=== PATIENT | male | born 1940 | race Caucasian/White ===

== ENCOUNTER 2016-04-16 11:44 | Inpatient (IN) ==
--- NOTE | 2016-04-16 14:50 | Diag Imaging Result Document ---
PROCEDURE NAME: HEAD W/O CONTRAST - 04/16/2016 CT OF THE HEAD WITHOUT CONTRAST: FINDINGS: There is apparent chronic left maxillary sinusitis. There is no evidence of mass effect, bleed or abnormal extraaxial fluid collection. There are calcifications of both vertebral and internal carotid arteries. The appearance of the brain has not changed significantly since the previous examination of 01/24/2016. IMPRESSION: Stable CT of the head.
--- NOTE | 2016-04-16 20:24 | HISTORY AND PHYSICAL ---
CHIEF COMPLAINT: Fall. 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 The patient stated that he was just so weak that his legs would not hold him up. He lost his balance. He denies any injury. He does state that this is how he feels when he has a urinary tract infection. He was found have a white count of 14.3. Urinalysis has positive nitrites with lzo-[id number]-hq-count white blood cells. Urine cultures and blood cultures were obtained. He is being admitted for further evaluation and treatment. PAST MEDICAL HISTORY: 1. Coronary artery disease. 2. Ischemic cardiomyopathy with an EF of 43% on May 2015. 3. Hypertension. 4. Hypothyroidism 5. Hyperlipidemia. 6. Depression. 7. 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 8. Myasthenia gravis. 9. History of chronic urinary tract infection. 10.Atrial fibrillation PAST SURGICAL HISTORY: Pacemaker with AICD placement, left knee surgery, gastric bypass surgery, suprapubic catheter placement, tonsillectomy. SOCIAL HISTORY: He smokes. He denies alcohol, tobacco, or illicit drug use. FAMILY HISTORY: Positive for CHF in his mother. Father had hypertension and of an NV. ALLERGIES: No known drug allergies. HOME MEDICATIONS: A list will be obtained. DIAGNOSTICS: Labs: WBC is 14.3 with hemoglobin 14.5, hematocrit 45 and platelets of 142. INR is 1.12. Sodium is 137, potassium 3.9, BUN 14, creatinine 1, with a glucose of 97. Urinalysis is positive for nitrite, blood. Large leukocytes with too numerous to count white blood cells, and less than 10 red blood cells. He does have 4+ bacteria. Of note, this is from a suprapubic catheter. Urine culture and blood cultures are pending. CT of the head revealed no acute processes. ASSESSMENT: 1. Urinary tract infection. 2. Metabolic encephalopathy. Most likely secondary to infection. 3. Leukocytosis. 4. Coronary artery disease. 5. Hypertension. 6. Ischemic cardiomyopathy with an ejection fraction of 43% in May 2015. 7. Chronic bilateral lower extremity weakness. 8. History of myasthenia gravis. 9. Atrial fibrillation PLAN: He will be admitted to the hospital. He will be placed on telemetry. We will follow his labs daily. We will give IV hydration. In review of his past records, he does have chronic urinary tract infections, which is consistent with a suprapubic catheter. He has had the last urinary tract infections within the last 6 months. He had Chryseomonas luteola pseudomonas and Citrobacter freundii. All have been Zosyn sensitive and were resistant to Levaquin, amoxicillin, cefazolin and ampicillin. He will be placed on Zosyn for antibiotic coverage at present. Once cultures return, if needed, antibiotics can be changed appropriately according to sensitivities. We will identify and continue his home medications. For DVT prophylaxis, we will continue his Xarelto and for GI prophylaxis, Prilosec. Dictated by RADHA Aviles for Lala Andujar MD MTDD
--- NOTE | 2016-04-17 10:02 | Diag Imaging Result Document ---
PROCEDURE NAME: CHEST-PORTABLE - 04/16/2016 PORTABLE CHEST X-RAY, 04/16/2016: COMPARISON: 01/24/2016. FINDINGS: Stable pacemaker. Stable cardiomegaly. The lungs remain grossly clear. IMPRESSION: Cardiomegaly.
--- NOTE | 2016-04-17 20:13 | PROGRESS NOTE ---
DATE: 04/17/2016 SUBJECTIVE: This is a 75-year-old admitted on 04/16/2016. 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 The patient stated that he was just so weak that his legs would not hold him up, lost his balance, denies injury. Does state that he feels that he has urinary tract infection. Was found to have white count of 14,000, urinalysis possibly nitrites and too-numerous- to-count white blood cells. PAST MEDICAL HISTORY: 1. Reviewed, coronary artery disease, ischemic cardiomyopathy, ejection fraction 43% in May 2015. 2. Hypertension. 3. Hypothyroidism. 4. Hyperlipidemia. 5. Depression. 6. 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 7. Myasthenia gravis. 8. Chronic urinary tract infection. 9. Atrial fibrillation. Mr. Vela has had a chest x-ray yesterday and it showed stable pacemaker, stable cardiomegaly, lungs remain grossly clear point that he is feeling better and doing better. EXAM: Vital signs: Today afebrile, temperature 97.5 degrees, pulse 56, respirations 20, blood pressure 146/70. HEENT: Equal, round. Lungs: Clear in all lung rick. Cardiovascular: Regular rhythm, rate without murmur, S3. Abdomen: Soft. Skin: Warm and dry. Urine output was 1300 mL. DATA: Note he had a head CT done yesterday, stable CT of the head, chronic left maxillary sinusitis. There is no evidence of mass effect, bleed or abnormal extra-axial fluid collection. There is claudication of both vertebral and internal carotid arteries, appearance of the brain is not changed significantly since 01/24/2016. ASSESSMENT AND PLAN: 1. Urinary tract infection. Continue present antibiotics. 2. Metabolic encephalopathy which seemed to improve most likely secondary from infection. 3. Leukocytosis suspect secondary infection. 4. Coronary artery disease history, no sign of active ischemia. 5. Hypertension. 6. Ischemic cardiomyopathy with ejection fraction 43% in May 2015. 7. Chronic bilateral lower extremity weakness. 8. History of myasthenia gravis. 9. Atrial fibrillation, rate appears to be controlled. He is on telemetry receiving some IV hydration. Looking through his orders I do not see any change at this time. He is on amiodarone 200 mg b.i.d., Xarelto which is rivaroxaban 10 mg daily, Protonix 40 mg IV q.24 hours, Lipitor 20 mg at bedtime, pyridostigmine 60 mg p.o. t.i.d. and Zosyn q.6 hours, normal saline at 75 mL an hour, Xanax 1 mg b.i.d. this.
[2016-04-18] MEDS: XANAX PO PRN ×2 (14:26→20:09)
--- NOTE | 2016-04-18 16:55 | PROGRESS NOTE ---
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 Presented to the emergency room after falling. Patient stated that he was just so weak that his legs would not hold him up. He had lost his balance. He denies any injury. He does state that this is how he feels when he has urinary tract infection. Found to have white count of 14,300. Urinalysis with positive nitrates and too numerous to count white blood cells. Urine cultures and blood cultures were obtained. He is admitted for further evaluation and treatment. PAST MEDICAL HISTORY: 1. Coronary artery disease. 2. Ischemic cardiomyopathy, ejection fraction 43% in May 2015. 3. Hypertension. 4. Hypothyroidism. 5. Hyperlipidemia. 6. Depression. 7. 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 8. Myasthenia gravis. 9. History of chronic urinary tract infections. 10. Atrial fibrillation. PAST SURGICAL HISTORY: Pacemaker with AICD placement. Left knee surgery. Gastric bypass surgery. Suprapubic catheter placed. Tonsillectomy. So he was admitted with urinary tract infection, metabolic encephalopathy, leukocytosis, coronary artery disease, hypertension, ischemic cardiomyopathy, ejection fraction known to be 43%, chronic bilateral lower extremity weakness, history of myasthenia gravis and atrial fibrillation. Apparently, he came in and then no longer wanted to be with hospice, so he is now admitted to the hospital. He seems to be doing better. He feels like he would like to have a suprapubic catheter back. He wants me to get Dr. Suárez involved again. He also is wondering his left side seems a little weaker than his right. He has had a history of myasthenia gravis so he would like to get Dr. James involved, and I am not sure what his long-term plans are. He seemed to be breathing comfortably. He seems to be in no distress. OBJECTIVE: Vital signs: Temperature is 97.6 degrees, pulse 70, respirations 18, blood pressure 116/59. General: He is awake and alert oriented x3. Eyes: Pupils are equal and round. Cardiovascular: Regular rhythm and rate without murmur or S3. Lungs: Are clear in all lung rick. Abdomen: Soft. Skin: Is warm and dry. Weight: 215 pounds. : Had good urine output yesterday. LABORATORY: Reviewed and on the or yesterday, sodium was 142, potassium 3.7, chloride 107, bicarb 25, BUN 10, creatinine 1, phosphorus 2.7, T4 1.35. TSH is 0.67. CBC, white blood cell count 9090, hematocrit 40, platelet count 128,000. ASSESSMENT AND PLAN: 1. Urinary tract infection. I am not sure if this was truly an active infection or just routine sediment unless we are treating it with antibiotic. 2. Metabolic encephalopathy and it very well could be secondary to multifactorial, but secondary to a urinary tract infection. So continue present antibiotics. His mental status seems to be much better. 3. Leukocytosis, nonspecific. 4. History of coronary artery disease. 5. Hypertension. 6. Ischemic cardiomyopathy. Ejection fraction 43% back in May 2015. 7. Chronic bilateral lower extremity weakness and history of myasthenia gravis. By his report, he feels a little weaker on his left side. He is requesting that Dr. James look at him. 8. Atrial fibrillation, his rate appears controlled. PLAN: Reviewing his orders, I am not sure I see any change. He is on Xarelto 10 mg a day. He was getting normal saline 75 mL an hour. Getting Zosyn dosing 3.375 mg IV q.6, he is on Synthroid 125 mcg p.o. daily. He is on Mestinon or pyridostigmine mean 60 mg t.i.d., amiodarone 200 mg b.i.d., Lipitor 20 mg at bedtime, Prilosec 40 mg a day. Looking back, when Dr. Suárez saw him back in 01/27/2016, he had a suprapubic tube at that time. He had multiple medical comorbidities. He has a neurogenic bladder, urinary retention and has been managed with suprapubic tube. He presented on 01/25/2016 after sustaining a fall where he reportedly inadvertently removing his suprapubic tube. Underwent right hemiarthroplasty secondary to femoral neck fracture on 01/26/2016. Requested at that time Urology Service and wanted a suprapubic tube placed again since he currently has an indwelling Boyer catheter. I think he is going to be set up as an outpatient for cystoscopy, suprapubic tube placement and I suspect that these same arrangements will be arranged as an outpatient. We need to find out what his long-term plans are, whether he is going to try and go home or whether he wants to go to rehab. I am not sure at this time this.
[2016-04-18] MEDS ORDERED: MESTINON PO SCH (17:00)
[2016-04-18] MEDS: ZOSYN 3.375 GM/NS 50 ML IV SCH ×2 (17:32→22:43)
[2016-04-18] MEDS: NS 1,000 ML IV SCH (17:32)
--- NOTE | 2016-04-18 18:32 | CONSULTATION ---
DATE OF CONSULTATION: 04/18/2016 NEUROLOGY CONSULTATION Room 365A Mr. Vela reports feeling weaker in the legs in the last few days. He seemed unable to bear his full weight. He was brought to the hospital, evaluated and admitted. He has a complicated neurologic history. Initially, he had features most consistent with brainstem infarction. He had some excessive fatiguing and thought he was improved with pyridostigmine. He has been managed for possible myasthenia gravis for the last few years. He has been certain pyridostigmine provides significant benefit. He has tolerated pyridostigmine 60 mg t.i.d. chronically. He almost never misses a dose. We increased his dose to q.i.d. 60 mg pyridostigmine briefly last year and that was associated with diarrhea. With his recent deterioration, he has not noticed diplopia, ptosis, facial asymmetry, trouble chewing or swallowing, slurred speech. He has some chronic shortness of breath and he believes that has been a little bit worse than usual but he has not had remarkable dyspnea. He believes his left leg is a little bit weaker than the right. On examination, he is awake, alert, attentive, cheerful, appropriate, oriented. Speech is not dysarthric. He does not appear significantly short of breath. He has full lateral eye movements and good upgaze. There is lid lag on the right but no ricki ptosis. He has good lower facial motility bilaterally. Gag is intact. Tongue is midline. Gag power is not diminished with repeated testing. Voice is not nasal. He has good shoulder shrug. He is a little bit tremulous and has slight difficulty with [id number] testing. He has good power distally in the arms. He is limited in the right leg because of discomfort around the hip. He demonstrated 4/5 power in the iliopsoas muscles bilaterally and 5/5 in the anterior tibialis and gastrocnemius. Tone is equal in the legs. He has good pinprick appreciation over the knees bilaterally. I did not test his gait. IMPRESSION: Relatively mild proximal leg weakness, question of minor exacerbation of myasthenia versus deconditioning or other non-neurologic problem. We will empirically add 30 mg of pyridostigmine to his morning dose making that 90 mg, continue 60 mg with the other doses, follow clinically, continue physical therapy and hope to see him improve. Unfortunately, MRI is not an option and we might consider brain imaging with CT later. I do not think neuromuscular workup would change management consultant now but we can reconsider if he does not do well. Thank you for asking me to see Owen Dane. MTDD
[2016-04-18] MEDS: LIPITOR PO SCH (20:09)
[2016-04-18] MEDS: CORDARONE PO SCH (20:09)
[2016-04-18] MEDS: NORCO-10 PO PRN (20:39)
[2016-04-18] MEDS: AMBIEN PO PRN (22:39)
[2016-04-19] MEDS: ZOSYN 3.375 GM/NS 50 ML IV SCH ×4 (03:30→22:01)
[2016-04-19] MEDS: NS 1,000 ML IV SCH ×2 (05:56→19:51)
[2016-04-19 07:29] LABS: MANUAL DIFF NEEDED? NO
[2016-04-19 07:34] LABS: BASO% 0.4 % (0.0-0.8); EOS# 0.52 X1000 (0.0-0.7); EOS% 10.7 % (0.0-10.0); HEMATOCRIT 39.2 % (42.0-52.0); HEMOGLOBIN 12.3 g/dL (14.0-18.0); IMM GRAN# 0.02 X1000 (0.0-0.04); IMM GRAN% 0.4 % (0.0-0.5); LYMPH# 1.43 X1000 (1.2-3.4); LYMPH% 29.4 % (20.5-51.1); MCH 30.4 PG (27-31); MCHC 31.4 g/dL (33-37); MONO# 0.72 X1000 (0.11-0.59); MONO% 14.8 % (1.7-9.3); MPV 9.6 FL (7.4-10.4); NEUT% 44.3 % (42.2-75.2); PLT 129 X1000 (130-400); RBC 4.04 XMIL (4.7-6.1)
[2016-04-19 07:46] LABS: AGAP 9; BUN 9 mg/dL (8-22); CALCIUM 8.1 mg/dL (8.8-10.2); CHLORIDE 108 mmol/L (98-107); COSMO 281; POTASSIUM 3.5 mmol/L (3.5-5.1); SODIUM 142 mmol/L (136-145); TCO2 25 mmol/L (25-35)
[2016-04-19] MEDS: PRILOSEC PO SCH (07:47)
--- NOTE | 2016-04-19 09:21 | PROGRESS NOTE ---
DATE: 04/19/2016 SUBJECTIVE: Mr. Vela is awake and alert, eating his breakfast without assistance, chewing and swallowing without difficulty. OBJECTIVE: There are no new neurologic findings on brief exam at the bedside this morning. I encouraged him to be attentive with physical therapy. We discussed the increased morning pyridostigmine dose and risk for cholinergic GI side effects, which he has experienced before. Further plans will depend on his clinical course. Thanks for allowing me to follow Mr. Vela. [facility]
[2016-04-19] MEDS: SYNTHROID PO SCH (09:26)
[2016-04-19] MEDS: MESTINON PO SCH ×3 (09:26→16:32)
[2016-04-19] MEDS: XARELTO PO SCH (09:26)
[2016-04-19] MEDS: CORDARONE PO SCH ×2 (09:26→22:00)
[2016-04-19] MEDS: DUONEB (A & A) INH PRN ×2 (09:40→15:44)
[2016-04-19] MEDS: NORCO-10 PO PRN (12:22)
--- NOTE | 2016-04-19 14:01 | PROGRESS NOTE ---
DATE: 04/19/2016 SUBJECTIVE: Mr. Veal is feeling better. He is sitting up and was eating his lunch. He has had a little more shaking or tremor on the right side, not on the left arm, but does feel a little stronger and felt he did better with physical therapy. He remains afebrile. OBJECTIVE: Vital Signs: Temperature 97.3 degrees, pulse 60, respirations 16. HEENT: Pupils are equal, round. I do not see any actual ptosis or lid lag. He does not describe any muscle weakness. No focal weakness, other than the left side seems to be worse than the right. Lungs: Clear in all lung rick. Cardiovascular: Regular rhythm and rate, without murmur or S3. Abdomen: Soft. Skin: Warm and dry. LABORATORIES: From today white count 4860, hematocrit 39, platelet count 129,000. Sodium 142, potassium 3.5, chloride 108, bicarb 25, BUN 9, creatinine 0.9, calcium 8.1. ASSESSMENT AND PLAN: 1. Appreciate Dr. James's evaluation. He has a history of myasthenia gravis, relatively mild proximal leg weakness, question of minor exacerbation of his myasthenia gravis, which could be also from deconditioning and non-neurologic problem. Added 30 mg of pyridostigmine in the morning dose, making that 90 mg and continue 60 mg of the other doses and see if this will help. 2. Neurogenic bladder. He wants to see about getting a suprapubic catheter. Again, I think that was set up for as an outpatient with Dr. Bert Suárez. 3. His plan is to go home. He cannot afford to go to rehab. We will need to set up home health with that and see how we do. So continue physical therapy for now. 4. Urinary tract infection. 5. Metabolic encephalopathy, which is improved. 6. History coronary artery disease. 7. Ischemic cardiomyopathy. Ejection fraction 43%. Volume status looks good at this time. 8. Bilateral lower extremity weakness. 9. History of atrial fibrillation. Looking at his orders medications, he is on Xarelto 10 mg a day. He is on Zosyn right now every 6. He is getting his fluids at normal saline at 75 mL an hour. We recently adjusted his pyridostigmine to 90 mg p.o. q.a.m. and 60 mg the next 2 days b.i.d. He has Prilosec 40 mg a day, Lipitor 20 mg at bedtime. Social Service is working on trying to get him home health as well. We will see how we do.
[2016-04-19] MEDS: XANAX PO PRN (15:25)
[2016-04-19] MEDS: LIPITOR PO SCH (22:00)
[2016-04-19] MEDS: AMBIEN PO PRN (22:06)
[2016-04-20] MEDS: ZOSYN 3.375 GM/NS 50 ML IV SCH ×4 (04:18→21:52)
[2016-04-20] MEDS: NS 1,000 ML IV SCH (06:28)
[2016-04-20] MEDS: PRILOSEC PO SCH (06:28)
[2016-04-20] MEDS: NORCO-10 PO PRN ×2 (07:48→17:17)
--- NOTE | 2016-04-20 08:26 | PROGRESS NOTE ---
DATE: 04/20/2016 SUBJECTIVE: The patient feeling a little better, a little stronger. Just woke up this morning, so he is not sure how he is doing today. OBJECTIVE: Temperature 97.8 degrees, pulse 70, respirations 16, blood pressure 151/71. Pupils are equal and round. Lungs are clear in all lung rick. Cardiovascular: Regular rhythm and rate without murmur or S3. Abdomen is soft. Skin is warm and dry. Urine output over 2000 mL. LABORATORY DATA: Lab reviewed from yesterday. Hematocrit 39, white count 4860, platelet count 129,000. Sodium 142, potassium 3.5 chloride 108, bicarb 25. BUN 9, creatinine 0.9, calcium 8.1. ASSESSMENT AND PLAN: 1. Myasthenia gravis. I have adjusted and gone up on his pyridostigmine. 2. Neurogenic bladder. I talked to Dr. Suárez about a suprapubic catheter again. 3. Urinary tract infection which is treated. 4. Metabolic encephalopathy, improved. 5. Coronary artery disease, aware. 6. Ischemic cardiomyopathy. Ejection fraction 43%. Volume status and compensation looks good at this time. 7. Bilateral lower extremity weakness. 8. History of atrial fibrillation. Rate is controlled. Continue physical therapy. Hope to send home soon. His plan is to go home with home health. He is pyridostigmine 90 mg in the morning and 60 mg twice more during the day. He is on normal saline 75 mL an hour, Zosyn 3.375 IV q.6 hours, Xarelto 10 mg daily, Synthroid 125 mcg a day, Cordarone 200 mg b.i.d., Lipitor 20 mg at bedtime, omeprazole 40 mg a day. He takes Xanax 1 mg p.o. t.i.d. p.r.n., Ambien 5 mg at night. He is on his breathing treatment of albuterol.
--- NOTE | 2016-04-20 08:53 | PROGRESS NOTE ---
DATE: 04/20/2016 HISTORY: Mr. Vela reports no definite improvement in leg strength. 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 He did have diarrhea with higher pyridostigmine dosing in the past. I encouraged him to be aggressive with physical therapy and hope to see some improvement in his ambulation. For the last year, he reports having some involuntary shaking in the right arm more than the left, mostly with action, mostly when he makes a fist or holds something firmly in the right hand. On my exam today, he does have some action tremor in each hand. When he had his hands in postural suspension, this is more noticeable. There is a slight intention tremor component. When he holds his hands in postural suspension and makes a firm fist, there is some rhythmic rotation of the right hand at the wrist. When he is relaxed, there is not definite cogwheeling or rigidity. I do not see definite resting tremor. IMPRESSION: 1. Presenting complaint several years ago was acute onset of dizziness and ataxia with vision problems. This was concerning for a brainstem stroke but later history was that he had had problems gradually fluctuating over a month before presentation. He responded clinically to pyridostigmine and has been managed for presumed myasthenia gravis. 2. Reported shaking in the right more than left arm for the last year. Clinical findings are most consistent with action tremor. I do not think we need to work this up further urgently now. Pyridostigmine might produce some muscle cramping but that is not what he reports and that is not what is demonstrated on examination now. 3. Presented this time with increased leg weakness and gait difficulty. There is not any definite new finding on examination. I hope he will respond to increased pyridostigmine dose. I will review his immunosuppressant management. 4. He has a long history of using benzodiazepines and opiates. He may be receiving lower dose of one or both of those here than what he has been accustomed to receiving. There may be medication effect responsible for some of his recent movement. Thanks for allowing me to follow Mr. Vela. [facility]
[2016-04-20] MEDS: CORDARONE PO SCH ×2 (09:56→21:52)
[2016-04-20] MEDS: MESTINON PO SCH ×3 (09:56→17:15)
[2016-04-20] MEDS: XARELTO PO SCH (09:56)
[2016-04-20] MEDS: SYNTHROID PO SCH (09:56)
[2016-04-20] MEDS: DUONEB (A & A) INH PRN ×2 (10:32→15:56)
[2016-04-20] MEDS: XANAX PO PRN ×2 (15:08→23:13)
--- NOTE | 2016-04-20 20:08 | CONSULTATION ---
DATE OF CONSULTATION: 04/20/2016 HISTORY OF PRESENT ILLNESS: Mr. Vela is a 75-year-old male who is well known to me secondary to a history of neurogenic bladder. He originally saw me secondary to recurrent urinary tract infections and enlarged prostate. He underwent bipolar transurethral resection of the prostate and suprapubic tube in 2013. He had trained his bladder and had his suprapubic tube removed with persistent postvoid residuals in the 3-400 mL range. He then had decline in his overall health and ended up with a catheter again. He underwent another suprapubic tube placement in 2014 and has been managed with monthly exchanges per home health. He did present to the hospital took with a hip fracture in January 2016 at which time he reportedly had altered mental status and pulled and "ripped out" his suprapubic catheter. At the time he had an indwelling urethral Boyer catheter placed and has been managed with that ever since. He does have a number of urinary tract infections per record review and patient history. Notably he had a culture documented infection in March 2016, January 2016, December 2015, November 2015, July 2015, June 2015, May 2015. He currently denies blood in the catheter, fevers, chills or flank pain. He feels strongly about having a suprapubic tube placed as it is both more comfortable for him with respect to the tip of his penis being irritated. As well he firmly believes it decreased the frequency of his infections. PAST MEDICAL HISTORY: Coronary artery disease, ischemic cardiomyopathy, hypertension, hyperlipidemia, myasthenia gravis, depression, neuropathy, atrial fibrillation, urinary tract infections. PAST SURGICAL HISTORY: 1. Gastric bypass, left knee arthroplasty, tonsillectomy, pacemaker placement, TURP with suprapubic tube placement. 2. Suprapubic tube replacement. 3. Hip ORIF. ALLERGIES: No known drug allergies. SOCIAL HISTORY: He is still smoking. He denies alcohol or drug use. FAMILY HISTORY: Negative for malignancies. HOME MEDICATIONS: Ambien, multivitamin, AndroGel, cranberry tabs, aspirin, potassium chloride, Zoloft, Coreg, Peridex, vitamin D3, vitamin B12, Colace, furosemide, Neurontin, Claritin. REVIEW OF SYSTEMS: Review of 12 systems negative except as noted in the HPI. PHYSICAL EXAMINATION: Vital Signs: T 97.8 degrees, P 72, BP 144/65. General: A pleasant male in no apparent distress. HEENT: Normocephalic, atraumatic. Cardiovascular: Regular rate at the time of examination. Pulmonary: Bilateral breath sounds. Abdomen: Nontender , nondistended. Genitourinary: Boyer catheter in place, normal meatus, testes descended and atrophic bilaterally. There is straw colored urine in the Boyer bag. Lymphatic: No groin lymphadenopathy noted. Dermatologic: No obvious skin rashes with the exception to areas of ecchymoses in the stomach where he has gotten his anticoagulation medications. Neurologic: Alert and oriented x3. Psychiatric: Appropriate mood and affect. PERTINENT LABORATORY DATA: White cell count of 5000, hematocrit 39, creatinine 0.9. PERTINENT IMAGES: None. ASSESSMENT: A 75-year-old male with neurogenic bladder likely secondary to a multitude of factors, who has failed suprapubic tube training in the past. He is currently managed with indwelling urethral Boyer. The patient again feels strongly about a suprapubic tube. He has not had a urologic evaluation in quite some time. I discussed cystoscopy, bilateral retrograde pyelograms and placement of suprapubic tube. We will perform a retrograde pyelogram and cystoscopy to assure that he does not have a source of recurrent UTIs. We discussed the risks of the procedure which would include risks of anesthesia, bleeding, infection, injury to the bladder, injury to adjacent structures, inability to place suprapubic tube, and need for additional interventions. He voiced understanding and wished to proceed. PLAN: We will proceed with cystoscopy, retrograde pyelograms bilaterally, suprapubic tube placement tomorrow. Thank you for the consultation. [facility]Yang
[2016-04-20] MEDS: AMBIEN PO PRN (21:52)
[2016-04-20] MEDS: LIPITOR PO SCH (21:52)
[2016-04-21] MEDS: NS 1,000 ML IV SCH ×2 (00:14→17:16)
[2016-04-21] MEDS: NORCO-10 PO PRN (01:08)
[2016-04-21] MEDS: ZOSYN 3.375 GM/NS 50 ML IV SCH ×4 (03:44→22:32)
[2016-04-21] MEDS: PRILOSEC PO SCH (06:21)
[2016-04-21] MEDS: DUONEB (A & A) INH PRN ×4 (07:50→23:39)
[2016-04-21 09:41] LABS: MANUAL DIFF NEEDED? NO
[2016-04-21 09:47] LABS: BASO% 0.4 % (0.0-0.8); EOS# 0.48 X1000 (0.0-0.7); HEMATOCRIT 35.3 % (42.0-52.0); HEMOGLOBIN 11.3 g/dL (14.0-18.0); IMM GRAN# 0.02 X1000 (0.0-0.04); IMM GRAN% 0.3 % (0.0-0.5); LYMPH% 26.3 % (20.5-51.1); MCH 30.9 PG (27-31); MCV 96.4 FL (81-99); MONO# 0.86 X1000 (0.11-0.59); MONO% 12.6 % (1.7-9.3); MPV 9.3 FL (7.4-10.4); NEUT% 53.4 % (42.2-75.2); PLT 132 X1000 (130-400); RBC 3.66 XMIL (4.7-6.1)
--- NOTE | 2016-04-21 11:09 | PROGRESS NOTE ---
DATE: 04/21/2016 Mr. Vela reports some improvement in leg strength. Right arm movement is unchanged. I have reviewed the physical therapy progress notes. I believe that he is tolerating current pyridostigmine 210 mg daily (90 mg 1st dose, 60 mg mid day and evening dose). No new suggestion today from a neurologic standpoint.
[2016-04-21] MEDS ORDERED: DIPRIVAN 1% ONE (13:29)
[2016-04-21] MEDS ORDERED: XYLOCAINE-MPF 2% ONE (13:40)
[2016-04-21] MEDS ORDERED: DECADRON ONE (13:40)
[2016-04-21] MEDS ORDERED: ZOFRAN ONE (13:40)
--- NOTE | 2016-04-21 15:35 | Diag Imaging Result Document ---
PROCEDURE NAME: RETROGRADES 2 OR 3 FILMS - 04/21/2016 BILATERAL RETROGRADE URETEROGRAMS: The procedure was performed by Dr. Bert Suárez in the OR. FINDINGS: There is no obstruction to the retrograde flow of contrast on either side. There are no discrete intraluminal filling defects identified. IMPRESSION: No discrete abnormality.
--- NOTE | 2016-04-21 15:44 | PROGRESS NOTE ---
DATE: 04/21/2016 SUBJECTIVE: He was resting comfortably. Plan is to get the suprapubic catheter placement. He is improved in his strength and his p.o. intake. OBJECTIVE: Vital signs: Temperature 97.8, pulse 72, respirations 18, blood pressure 149/73. Lungs: Clear anterolateral. Cardiovascular: Regular rate without murmurs. Abdomen: Soft. Skin: Warm and dry. Genitourinary: Good urine output. LABORATORIES: From today, white count 6850, hematocrit 35, platelet count 132,000, sodium 142, potassium 3.5, chloride 108, bicarb 25, BUN 9, creatinine 0.9, calculated osmolality 281, calcium 8.1. ASSESSMENT AND PLAN: 1. Myasthenia gravis. Have increased his pyridostigmine. 2. Neurogenic bladder and a suprapubic catheter placed. 3. Urinary tract infection which has been treated. 4. Metabolic encephalopathy, resolved. 5. Coronary artery disease, history, aware. No sign of active ischemia. 6. Ischemic cardiomyopathy, ejection fraction 43%. Good volume status right now. Good compensation. 7. Bilateral lower extremity weakness. 8. History of atrial fibrillation, rate has been controlled. Note: platelet count looks pretty good. On review his orders I do not see any changes at this time. I think we can stop the Zosyn tomorrow.
--- NOTE | 2016-04-21 16:28 | OPERATIVE NOTE ---
PROCEDURE DATE: 04/21/2016 SURGEON: Bert Suárez MD PREOPERATIVE DIAGNOSES: 1. Neurogenic bladder. 2. Urinary retention. 3. Indwelling urethral Boyer catheter, desire for suprapubic tube. 4. Microhematuria. PRIMARY PROCEDURE: 1. Cystoscopy. 2. Bilateral retrograde pyelograms. 3. Introduction of suprapubic tube. INDICATIONS: A 75-year-old male with long-standing neurogenic bladder, who has failed transurethral resection of the prostate in the past. He has multiple medical comorbidities, including myasthenia gravis and BPH and recurrent UTIs. He was managed with a suprapubic tube in the past, but during admission for hip fracture patient has altered mental status and reportedly ripped his suprapubic tube out. He has since been managed with an indwelling urethral Boyer since January 2016. He desires to have suprapubic tube placed secondary to significant discomfort from urethral Boyer. Given his recurrent UTIs and microhematuria, we discussed workup with retrograde pyelogram as well. FINDINGS: Cystoscopy revealing capacious bladder with moderate trabeculations without evidence of significant diverticula or bladder stones. Bilateral retrograde pyelograms were unremarkable, successful suprapubic tube placement with adequate hemostasis at the conclusion of the case. PROCEDURE IN DETAIL: After obtaining informed consent, patient was brought to the operating room. Perioperative antibiotics and laryngeal mask airway anesthesia were administered. He was placed in lithotomy position, prepped and draped in sterile fashion. A 21-Polish rigid cystoscope was used to gain access to the bladder, which was then examined in systematic fashion. He had a TUR defect consistent with previous resection in the prostatic urethra. His bladder was examined and again revealed moderate trabeculations, but no evidence of significant diverticula or bladder stones. I turned attention to the left ureteral orifice, which was cannulated with a 5-Polish cone-tip ureteral catheter. Then 50% diluted Omnipaque dye was introduced to perform retrograde pyelogram. It revealed delicate caliceal system without evidence of hydroureteronephrosis or filling defect. We then performed the same thing on the opposite side. It also revealed delicate caliceal system without evidence of hydroureteronephrosis or filling defects. We then turned attention to placement of suprapubic tube. I identified a place just adjacent to the previous suprapubic tract and used a curved Lowsley retractor to introduce and tent the bladder up to give the skin. A 15 blade was used to make a small stab incision until curved Lowsley retractor was introduced in a retrograde fashion through the skin. It was then connected to a 20-Polish Boyer, which was then back loaded into the bladder. I reinspected the urethra and the bladder with 70 degree lens, which showed no evidence of excessive bleeding at the side of the suprapubic tube introduction. We introduced 5 mL into the balloon with sterile water. The cystoscope was removed. He was extubated, taken to PACU for further recovery. ESTIMATED BLOOD LOSS: 1 mL. COMPLICATIONS: None. DISPOSITION: To PACU, subsequently to floor for observation with suprapubic tube to gravity drainage.
[2016-04-21] MEDS: MESTINON PO SCH ×3 (17:43→17:47)
[2016-04-21] MEDS: CORDARONE PO SCH ×2 (17:43→22:32)
[2016-04-21] MEDS: SYNTHROID PO SCH (17:43)
[2016-04-21] MEDS: AMBIEN PO PRN (22:31)
[2016-04-21] MEDS: LIPITOR PO SCH (22:32)
[2016-04-22] MEDS: XANAX PO PRN ×4 (00:39→20:45)
[2016-04-22] MEDS: ZOSYN 3.375 GM/NS 50 ML IV SCH ×2 (04:29→10:02)
[2016-04-22] MEDS: PRILOSEC PO SCH (06:20)
[2016-04-22] MEDS: NS 1,000 ML IV SCH ×2 (06:20→20:46)
[2016-04-22] MEDS: CORDARONE PO SCH ×2 (10:00→20:45)
[2016-04-22] MEDS: NORCO-10 PO PRN ×2 (10:00→20:45)
[2016-04-22] MEDS: SYNTHROID PO SCH (10:02)
[2016-04-22] MEDS: MESTINON PO SCH ×3 (10:02→16:23)
[2016-04-22] MEDS: DUONEB (A & A) INH PRN ×3 (11:47→19:38)
--- NOTE | 2016-04-22 15:02 | PROGRESS NOTE ---
DATE: 04/22/2016 SUBJECTIVE: Mr. Vela was resting comfortably, easy to arouse. Suprapubic catheter was placed yesterday. No complaints of pain. States that he feels like he is getting a little stronger and he is eating better. OBJECTIVE: Vital Signs: Afebrile, Temperature 97.5 degrees, pulse 70, respiration 16, blood pressure 153/76. HEENT: Pupils are equal, round. Chest: CVP less than 6 cm. Lungs: Clear in all lung rick. Cardiovascular: Regular rhythm and rate without murmur or S3. Abdomen: Soft. Suprapubic catheter in place. Extremities: Without clubbing, cyanosis, or edema. : Urine output was 1700 mL. ASSESSMENT AND PLAN: 1. Status post cystoscopy, bilateral retrograde pyelograms, introduction of a suprapubic tube, this is for neurogenic bladder, urinary retention. 2. Myasthenia gravis. We had recently adjusted his anticholinesterase inhibitors pyridostigmine. 3. Urinary tract infection. Treated. 4. Metabolic encephalopathy. Resolved. 5. Coronary artery disease. Aware. No sign of active ischemia. 6. He has a history of ischemic cardiomyopathy, ejection fraction 43%. 7. Bilateral lower extremity weakness. 8. Atrial fibrillation. Rate has been well controlled. 9. Reviewed again his lab, nothing new, and his orders, I do not see any change. He is on pyridostigmine 90 mg in the morning and 60 twice in the day, so 90 in the morning, 60 mid day, and 60 in the end of the day. I am going to stop his antibiotics. He is on Unasyn and Levaquin, he is on Xarelto 10 mg daily, amiodarone 200 mg b.i.d., Lipitor 20 mg a day, Prilosec 40 mg a day, hydrocodone as needed.
[2016-04-22] MEDS: LIPITOR PO SCH (20:44)
[2016-04-23] MEDS: NORCO-10 PO PRN ×2 (05:58→16:00)
[2016-04-23] MEDS: PRILOSEC PO SCH (05:59)
[2016-04-23] MEDS: DUONEB (A & A) INH PRN ×5 (07:45→23:32)
[2016-04-23] MEDS: CORDARONE PO SCH ×2 (10:02→21:13)
[2016-04-23] MEDS: MESTINON PO SCH ×3 (10:02→16:00)
[2016-04-23] MEDS: SYNTHROID PO SCH (10:02)
[2016-04-23] MEDS: NS 1,000 ML IV SCH ×2 (10:37→23:58)
--- NOTE | 2016-04-23 14:54 | PROGRESS NOTE ---
DATE: 04/23/2016 SUBJECTIVE: Mr. Vela was sleeping and easy to arouse. He says he still feels pretty weak. Suprapubic catheter in place. His breathing is comfortable. He is eating well. OBJECTIVE: Today, he remains afebrile. Temperature 97.6 degrees, pulse 70, respirations 20, and blood pressure 154/74.Pupils: Equal and round. Lungs: Clear in all lung rick. Cardiovascular: Regular rate without murmur or S3. Abdomen: Soft. Skin: Warm and dry. LABORATORY: Urine output 1100 mL. Blood work unremarkable. ASSESSMENT AND PLAN: 1. Status post cystoscopy bilateral retrograde pyelograms and introduction of suprapubic tube catheter from neurogenic bladder. Urinary retention. 2. Myasthenia gravis appears to be medication recently adjusted appears to be doing better. 3. Urinary tract infection treated. 4. Metabolic encephalopathy resolved. 5. Coronary artery disease aware. No active ischemia. 6. History of ischemic cardiomyopathy. 7. Bilateral lower extremity weakness complicated by myasthenia gravis and osteoarthritis. 8. Atrial fibrillation rate controlled. We hope to get him home tomorrow with the help of home health. He seems to be making progress. I looked at his throat. I do not know that he has any oral thrush but he did complain that it is sore. We will try some nystatin swish and swallow and some Chloraseptic spray. He is off of antibiotics. He is on 90 mg in the morning, 60 in the mid day and 60 at the end of the day. He is presently getting IV fluids at normal saline 75 mL an hour. Xarelto 10 mg a day. Synthroid 125 mcg daily, Cordarone 200 mg b.i.d., Lipitor 20 mg at bedtime and Prilosec 40 mg daily.
[2016-04-23] MEDS ORDERED: CHLORASEPTIC SPRAY MT PRN (18:18)
[2016-04-23] MEDS: XANAX PO PRN (21:13)
[2016-04-23] MEDS: MYCOSTATIN SUSP PO SCH (21:13)
[2016-04-23] MEDS: AMBIEN PO PRN (21:13)
[2016-04-23] MEDS: LIPITOR PO SCH (21:14)
[2016-04-24] MEDS: DUONEB (A & A) INH PRN ×6 (03:26→23:30)
[2016-04-24] MEDS: PRILOSEC PO SCH (06:39)
[2016-04-24] MEDS: XARELTO PO SCH (09:37)
[2016-04-24] MEDS: MESTINON PO SCH ×4 (09:37→19:02)
[2016-04-24] MEDS: SYNTHROID PO SCH (09:37)
[2016-04-24] MEDS: XANAX PO PRN ×2 (09:37→20:53)
[2016-04-24] MEDS: CORDARONE PO SCH ×2 (09:37→20:47)
[2016-04-24] MEDS: MYCOSTATIN SUSP PO SCH ×4 (09:38→20:47)
[2016-04-24] MEDS: NS 1,000 ML IV SCH (13:13)
[2016-04-24] MEDS: QUESTRAN LIGHT PO SCH ×2 (13:42→20:48)
[2016-04-24] MEDS: NORCO-10 PO PRN (15:31)
--- NOTE | 2016-04-24 17:29 | PROGRESS NOTE ---
DATE: 04/24/2016 SUBJECTIVE: Mr. Vela was sleeping. He is aroused laying on his left side. His stools have been loose complained, he still complained he feels pretty weak and tired, suprapubic catheter in place. OBJECTIVE: Vital signs: Temperature 97.7 degrees, pulse 68, respirations 19, blood pressure 149/57. HEENT: Pupils were equal and round. CVP less than 6 cm. I do not see any lid lag today. He states he is just kind of generally weak not 1 side or the other. Lungs: Are clear in all lung rick. Cardiovascular: Regular rhythm, rate without murmur, S3. Abdomen: Soft. Skin: Is warm and dry. Urine output about 500 mL. ASSESSMENT AND PLAN: 1. Status post cystoscopy, bilateral retrograde pyelograms, introduction suprapubic catheter for neurogenic bladder and urinary retention. 2. Myasthenia gravis. We increased his morning dose of medication pyridostigmine. 3. Urinary tract infection treated. 4. Metabolic encephalopathy resolved. 5. Coronary artery disease aware, no sign of active ischemia. 6. History ischemic cardiomyopathy. 7. Bilateral lower extremity weakness and general weakness. Continue physical therapy. Presume this is multifactorial and also underlying myasthenia gravis. 8. Atrial fibrillation, rate is controlled. I do not know if he is eligible to go rehab. I think he is going to have to try and go home with home health and see if we can work on those plans. Continue physical therapy. Social service involved.
[2016-04-24] MEDS: LIPITOR PO SCH (20:47)
[2016-04-24] MEDS: AMBIEN PO PRN (20:53)
[2016-04-25] MEDS: NS 1,000 ML IV SCH ×2 (03:26→15:23)
[2016-04-25] MEDS: PRILOSEC PO SCH (06:15)
[2016-04-25] MEDS: DUONEB (A & A) INH PRN ×5 (07:37→23:16)
[2016-04-25] MEDS: MESTINON PO SCH ×3 (09:58→20:08)
[2016-04-25] MEDS: CORDARONE PO SCH ×2 (09:58→20:07)
[2016-04-25] MEDS: XARELTO PO SCH (09:58)
[2016-04-25] MEDS: MYCOSTATIN SUSP PO SCH ×4 (09:59→20:08)
[2016-04-25] MEDS: SYNTHROID PO SCH (09:59)
[2016-04-25] MEDS: QUESTRAN LIGHT PO SCH ×2 (09:59→20:08)
[2016-04-25] MEDS: NORCO-10 PO PRN ×2 (12:54→20:37)
--- NOTE | 2016-04-25 13:48 | PROGRESS NOTE ---
DATE: 04/25/2016 SUBJECTIVE: Mr. Vela is awake and alert. Diarrhea has persisted since increasing the morning pyridostigmine dose to 90 mg. There may have been slight improvement in leg power. He has been able to get up and walk the halls at times with physical therapy assistance. Examined in the bed, he shows good power in the legs. I will return his pyridostigmine dose to 60 mg t.i.d. which has been his usual dose in recent years. He will have 1 dose of glycopyrrolate, and that can be continued on a p.r.n. basis if diarrhea persists. I am optimistic diarrhea will stop soon with reduction of pyridostigmine dose. Further plans will depend on his clinical course. Thanks for allowing me to follow Mr. Vela. [facility]
[2016-04-25] MEDS: XANAX PO PRN ×2 (14:16→20:17)
--- NOTE | 2016-04-25 14:38 | PROGRESS NOTE ---
DATE: 04/25/2016 Today Mr. Vela referred to be doing okay. He refers to have been having some cough. He was able to do some physical therapy today. But he still complains of excessive weakness and he thinks he was stronger 4 days ago than today. OBJECTIVE: Vital signs: Blood pressure is 146/83, pulse of 88, respirations 21 , temperature is 98.6 degrees. General: Mr. Vela is a 75-year-old male. He is in bed , no seemingly distress. HEENT: Mucosa is pink and moist. Anicteric. Acyanotic. Neck: Supple. Chest: Air entry is bilaterally reduced. I did not appreciate any crepitations or rhonchi. Cardiovascular: Regular rate and rhythm. There is a pacemaker generator on the left anterior chest wall. Abdomen: Soft, nontender. Extremities: No pedal edema. MODEL TECHNICIAN: Patient is alert and oriented. Seems to have some intentional tremor. USUAL MEDICATIONS INCLUDE: 1. Amiodarone 200 b.i.d. 2. Pravastatin 20 at bedtime. 3. Levothyroxine 125. 4. Omeprazole. 5. Mestinon 90 q.a.m. 6. Mestinon 60 b.i.d. 7. Xarelto 10 mg daily. LABORATORY DATA: None for a while. ASSESSMENT: 1. Altered mental status on presentation likely due to E. coli and Klebsiella urinary tract infection. Patient is status post suprapubic catheter placement and has had complete course of antibiotics for the UTI. 2. Lower extremity weakness likely due to general deconditioning. 3. History of myasthenia gravis. Patient's medications have been adjusted however he is having diarrhea which I think is due to the side effects of the Mestinon. I spoke with Dr. James and there are going to be some changes to this. 4. Atrial fibrillation currently rate controlled. Patient is on amiodarone and on Xarelto anticoagulation. 5. History of coronary artery disease with status post pacemaker. 6. Intentional tremor. I have discussed this with Dr. James as well and he will look at it at a later date. GENERAL PLAN: Patient seems to be stable. We are going to encourage PT and some changes are going to be done to his medications which I think is the side effect of the diarrhea that he is having. However because he was on antibiotics, stool cultures and stool C. difficile have also been ordered however patient has not been able to get the sample. I think patient is relatively stable and maybe within a day or 2 we might be able to discharge him. My understanding is that he does not have any more rehab days but he is slightly weak to care for himself at home so I think he will benefit from a day or 2 of physical rehab to get him where he will be able to care for himself at home with home health. [facility]
[2016-04-25] MEDS: LIPITOR PO SCH (20:07)
[2016-04-25] MEDS: ROBINUL PO PRN (20:17)
[2016-04-25] MEDS: AMBIEN PO PRN (20:17)
[2016-04-25] MEDS: FLAGYL PO SCH (22:44)
[2016-04-26] MEDS: DUONEB (A & A) INH PRN ×4 (03:36→19:40)
[2016-04-26] MEDS: NS 1,000 ML IV SCH (04:59)
[2016-04-26] MEDS: MESTINON PO SCH ×3 (04:59→20:55)
[2016-04-26] MEDS: FLAGYL PO SCH ×4 (04:59→20:54)
[2016-04-26] MEDS: PRILOSEC PO SCH (06:10)
[2016-04-26 07:14] LABS: MANUAL DIFF NEEDED? NO
[2016-04-26 07:20] LABS: BASO% 0.3 % (0.0-0.8); EOS# 0.47 X1000 (0.0-0.7); EOS% 4.7 % (0.0-10.0); HEMATOCRIT 36.4 % (42.0-52.0); HEMOGLOBIN 11.6 g/dL (14.0-18.0); IMM GRAN# 0.03 X1000 (0.0-0.04); IMM GRAN% 0.3 % (0.0-0.5); LYMPH# 0.97 X1000 (1.2-3.4); LYMPH% 9.7 % (20.5-51.1); MCH 30.9 PG (27-31); MCHC 31.9 g/dL (33-37); MCV 96.8 FL (81-99); MONO# 0.91 X1000 (0.11-0.59); MONO% 9.1 % (1.7-9.3); MPV 9.9 FL (7.4-10.4); NEUT% 75.9 % (42.2-75.2); PLT 187 X1000 (130-400); RBC 3.76 XMIL (4.7-6.1)
[2016-04-26 07:42] LABS: AGAP 11; ALBUMIN 2.7 g/dL (3.5-5.0); ALKALINE PHOSPHATASE 75 U/L (32-122); BUN 7 mg/dL (8-22); CHLORIDE 109 mmol/L (98-107); COSMO 288; GOT 11 U/L (10-34); GPT 9 U/L (10-44); MAGNESIUM 1.7 mg/dL (1.5-2.7); SODIUM 146 mmol/L (136-145); TCO2 26 mmol/L (25-35); TOTAL BILIRUBIN 0.34 mg/dL (0.20-1.00); TOTAL PROTEIN 5.3 g/dL (6.3-8.3)
[2016-04-26] MEDS ORDERED: KLOR-CON PO ONE (08:14)
[2016-04-26] MEDS: SYNTHROID PO SCH (08:23)
[2016-04-26] MEDS: CORDARONE PO SCH ×2 (08:23→20:54)
[2016-04-26] MEDS: XARELTO PO SCH (08:24)
[2016-04-26] MEDS: MYCOSTATIN SUSP PO SCH ×4 (08:26→21:02)
[2016-04-26] MEDS ORDERED: D5 1/2 NS 1,000 ML IV SCH (08:30)
--- NOTE | 2016-04-26 10:49 | PROGRESS NOTE ---
DATE: 04/26/2016 Mr. Vela had stool positive for Clostridium difficile antigen. He reports diarrhea is the same today. This morning was the 1st with reduced a.m. pyridostigmine dose. He reports leg strength continues to be improved. I remain optimistic that diarrhea will improve with returning his pyridostigmine dose to 60 mg t.i.d. which he has tolerated long-term. No new suggestion from a neurologic standpoint.
[2016-04-26] MEDS: NORCO-10 PO PRN ×2 (11:29→21:08)
[2016-04-26] MEDS: XANAX PO PRN ×2 (14:13→22:44)
--- NOTE | 2016-04-26 15:20 | PROGRESS NOTE ---
DATE: 04/26/2016 Today Mr. Vela referred to be doing okay. Did complain of some generalized weakness. He said his stool is getting a little firmer than the days before. OBJECTIVELY: Vitals: Blood pressure is 138/60, pulse of 69, respirations 18, temperature 97.6 degrees. General: Mr. Vela is a 75-year-old male. He was in bed. Not in any distress. HEENT: Mucosa is pink and moist. Anicteric. Acyanotic. Neck: Supple. Chest: Clear. Cardiovascular: Regular rate and rhythm. Abdomen: Soft, distended, but nontender. There is a pacemaker generator on the left anterior chest wall. STOCK CRANE OPERATOR: Patient is alert and oriented. There is also some intentional tremor in both hands. LABORATORY DATA: WBC is 9.96, hemoglobin is 11.6, platelet count of 187,000. Chemistry reviewed. Sodium is 146, potassium is 3.0, chloride is 9. Per the physical therapy note patient had 30 feet ambulation yesterday with full weightbearing minimum assistance and a front wheeled walker was used. ASSESSMENT: 1. Altered mental status on presentation likely due to E. coli and Klebsiella urinary tract infection. Patient is status post suprapubic catheter placement. Has had a complete course of antibiotics. 2. Diarrhea with positive C. difficile antigen. Not quite sure if this is really C. difficile colitis but in the midst of symptoms I am going to treat it as if it is a C. difficile colitis. I have started the patient on metronidazole since yesterday and his stool formation has slightly improved. Of note, patient also had some changes to his myasthenia gravis medications which could potentially just be why the stool has improved. 3. History of myasthenia gravis. 4. Atrial fibrillation currently rate controlled. Patient is on amiodarone and Xarelto. 5. Coronary artery disease status post pacemaker. 6. Intentional tremor. Stable. 7. Electrolyte imbalance including hypernatremia and hypokalemia. We will make some changes to the patient's IV fluids to correct the hypernatremia. We will replace his potassium as well. Our general plan, patient is doing okay and was started on metronidazole and the changes were also done to his Mestinon. Diarrhea is improving. We are going to continue with PT for now and will re-evaluated patient. I suspect patient might be able to go home within 24-48 hours.
[2016-04-26] MEDS: LIPITOR PO SCH (20:54)
[2016-04-26] MEDS: AMBIEN PO PRN (22:44)
[2016-04-27 00:43] LABS: INR 1.63; PROTIME 16.4 Seconds (9.2-11.7); PTT 38.1 Seconds (22.0-36.0)
[2016-04-27] MEDS: FLAGYL PO SCH ×4 (02:40→20:08)
[2016-04-27] MEDS: DUONEB (A & A) INH PRN ×5 (03:28→23:36)
[2016-04-27] MEDS: MESTINON PO SCH ×3 (06:53→21:27)
[2016-04-27] MEDS: PRILOSEC PO SCH (06:54)
[2016-04-27 07:10] LABS: AGAP 9; BUN 6 mg/dL (8-22); CALCIUM 7.9 mg/dL (8.8-10.2); CHLORIDE 107 mmol/L (98-107); COSMO 282; POTASSIUM 3.2 mmol/L (3.5-5.1); SODIUM 143 mmol/L (136-145); TCO2 27 mmol/L (25-35)
[2016-04-27] MEDS: NORCO-10 PO PRN ×2 (07:37→18:18)
--- NOTE | 2016-04-27 07:52 | Diag Imaging Result Document ---
PROCEDURE NAME: CHEST-2 VIEWS - 04/26/2016 CHEST X-RAY, 2 VIEWS: COMPARISON: 04/16/2016. FINDINGS: Stable pacemaker. Stable cardiomegaly. There is new central infiltrate bilaterally. There are also new pleural effusions. IMPRESSION: Cardiomegaly, pulmonary edema, and pleural effusions.
[2016-04-27] MEDS: CORDARONE PO SCH ×2 (08:12→21:27)
[2016-04-27] MEDS: SYNTHROID PO SCH (08:12)
[2016-04-27] MEDS: MYCOSTATIN SUSP PO SCH ×4 (08:12→21:31)
[2016-04-27] MEDS: XARELTO PO SCH (08:12)
[2016-04-27] MEDS ORDERED: KLOR-CON PO ONE (08:37)
--- NOTE | 2016-04-27 09:25 | PROGRESS NOTE ---
DATE: 04/27/2016 Mr. Vela reports his diarrhea has improved in the last 24 hours. He has noticed some possible hemoptysis and that is being worked up. He feels quickly fatigued when standing but he was able to bear weight, get himself standing, walking through the sigala before tiring. Current fatiguing may be related to his persistent diarrhea and medical problems, and may not be purely myasthenic. We have demonstrated that he does not tolerate higher pyridostigmine dosing. I think we should continue pyridostigmine 60 mg t.i.d. which is the dose he has tolerated long- term. I encouraged him to be careful when he is up. Further plans will depend on results of medical workup. Thanks for allowing me to follow Mr. Vela.
[2016-04-27] MEDS: XANAX PO PRN ×2 (09:38→13:53)
--- NOTE | 2016-04-27 13:25 | PROGRESS NOTE ---
DATE: 04/27/2016 This morning Mr. Vela referred to be doing a little better. He continues to be slightly weak in his legs but he thinks he is feeling better. Diarrhea has resolved. However he has been coughing according to him, some bloody expectoration since 3 days ago. OBJECTIVELY: Vitals: Blood pressure is 148/62, pulse of 70, respirations 20, temperature 97.9 degrees. General: Mr. Vela is a 75-year-old, male. He is in bed, no seemingly distress. HEENT: Mucosa is pink and moist. Anicteric. Acyanotic. Neck: Supple. Chest: Air entry is bilaterally reduced. There is bibasilar crepitations in the posterior lung rick. Cardiovascular: Regular rate and rhythm. Abdomen: Soft, distended, but nontender. There is a pacemaker generator on the left anterior chest wall. TRAY DRIER OPERATOR: Patient is alert and oriented. No focal neurological deficit. LABORATORY DATA: Chemistry: Sodium is 144, potassium is 3.2, chloride 107. A chest x-ray done yesterday in the morning shows central infiltrates bilateral. There are no new pleural effusions. ASSESSMENT: 1. Altered mental status on presentation likely due to E. coli and Klebsiella UTI. This has been treated with full course of antibiotics. 2. Diarrhea with C. difficile antigen positive. The patient is being treated as C. difficile colitis. Diarrhea has resolved since he was started on metronidazole. 3. History of myasthenia gravis. 4. Atrial fibrillation currently rate controlled. 5. Ischemic cardiomyopathy. 6. Mild electrolyte imbalance, including hypokalemia. We will continue to replace this. 7. Lower extremity weakness likely due to general physical deconditioning. 8. Hemoptysis. Etiology is unclear. Patient is been on Xarelto. Not sure if it is medication induced or it is due to underlying pulmonary edema or a PE. We will do a CTA of the lungs and get a better image.
--- NOTE | 2016-04-27 14:35 | Diag Imaging Result Document ---
PROCEDURE NAME: ANGIOGRAM/PULMONARY ARTERIES - 04/27/2016 CT OF THE CHEST WITH INTRAVENOUS CONTRAST AND CLARITY: FINDINGS: There is a large filling defect in the left main pulmonary artery which was not present on the previous study of 09/29/2011. There are larger pleural fluid collections bilaterally, one of which is loculated anteriorly on the left. There is a pacemaker lead which passes through the left pleural space to terminate on the apex of the left ventricle. There is a large hiatal hernia. There is no evidence of aortic aneurysm or dissection. There are extensive calcifications in the coronary arteries. There is patchy alveolar opacity in both upper lobes, the right middle lobe, and both lower lobes. This is worse than on the previous examination. The regional skeleton is apparently stable. IMPRESSION: Left-sided pulmonary embolus. Pleural effusions with pulmonary edema plus/minus pneumonia.
[2016-04-27] MEDS: HEPARIN 25,000 UNITS/D5W 250 ML IV SCH (18:14)
[2016-04-27 19:57] LABS: MANUAL DIFF NEEDED? NO
[2016-04-27 20:02] LABS: BASO% 0.5 % (0.0-0.8); EOS# 0.51 X1000 (0.0-0.7); EOS% 5.9 % (0.0-10.0); HEMOGLOBIN 11.3 g/dL (14.0-18.0); IMM GRAN# 0.02 X1000 (0.0-0.04); IMM GRAN% 0.2 % (0.0-0.5); LYMPH% 10.3 % (20.5-51.1); MCH 30.9 PG (27-31); MCHC 32.3 g/dL (33-37); MCV 95.6 FL (81-99); MONO# 0.82 X1000 (0.11-0.59); MONO% 9.4 % (1.7-9.3); NEUT% 73.7 % (42.2-75.2); PLT 203 X1000 (130-400); RBC 3.66 XMIL (4.7-6.1)
[2016-04-27] MEDS: LIPITOR PO SCH (21:27)
[2016-04-27] MEDS: AMBIEN PO PRN (21:30)
[2016-04-27] MEDS ORDERED: HEPARIN IV ONE ×2 (22:58→23:15)
[2016-04-28] MEDS: XANAX PO PRN ×2 (00:15→22:41)
[2016-04-28] MEDS: NORCO-10 PO PRN ×3 (02:55→21:15)
[2016-04-28] MEDS: FLAGYL PO SCH ×5 (02:55→21:14)
[2016-04-28] MEDS: PRILOSEC PO SCH (06:28)
[2016-04-28] MEDS: MESTINON PO SCH ×3 (06:28→21:26)
[2016-04-28 07:05] LABS: MANUAL DIFF NEEDED? NO
[2016-04-28 07:11] LABS: BASO% 0.5 % (0.0-0.8); EOS# 0.48 X1000 (0.0-0.7); EOS% 6.1 % (0.0-10.0); HEMATOCRIT 33.2 % (42.0-52.0); HEMOGLOBIN 10.6 g/dL (14.0-18.0); IMM GRAN# 0.02 X1000 (0.0-0.04); IMM GRAN% 0.3 % (0.0-0.5); LYMPH# 1.06 X1000 (1.2-3.4); LYMPH% 13.4 % (20.5-51.1); MCH 30.6 PG (27-31); MCHC 31.9 g/dL (33-37); MONO# 0.82 X1000 (0.11-0.59); MONO% 10.4 % (1.7-9.3); MPV 9.9 FL (7.4-10.4); NEUT% 69.3 % (42.2-75.2); PLT 200 X1000 (130-400); RBC 3.46 XMIL (4.7-6.1)
[2016-04-28] MEDS: CORDARONE PO SCH ×2 (09:14→21:14)
[2016-04-28] MEDS: SYNTHROID PO SCH (09:14)
[2016-04-28] MEDS: MYCOSTATIN SUSP PO SCH ×4 (09:14→21:18)
--- NOTE | 2016-04-28 10:39 | PROGRESS NOTE ---
DATE: 04/28/2016 SUBJECTIVE: Mr. Vela reports he did not sleep well initially last night, worried about the chest CT report. He did eventually get to sleep and was sleeping very soundly when I first came around early this morning. Now, later in the morning, he is awake, alert, attentive and appropriate. He reports continuing slow improvement in leg strength and stamina. Diarrhea continues to be improved. I do not have any new suggestion from neurologic standpoint today. Thanks for allowing me to follow Mr. Vela. MTDD
[2016-04-28] MEDS: HEPARIN 25,000 UNITS/D5W 250 ML IV SCH (12:26)
[2016-04-28] MEDS ORDERED: LASIX IV ONE (12:46)
--- NOTE | 2016-04-28 13:30 | PROGRESS NOTE ---
DATE: 04/28/2016 SUBJECTIVE: Today Mr. Vela seems to be having more difficulty breathing and has some congestion in the chest. OBJECTIVE: Vital signs: Blood pressure is 150/68, pulse of 70, respirations 14 , and temperature 97.5 degrees. General: Mr. Vela is a 75-year-old male. He was in bed and seems to be in mild respiratory distress. HEENT: Mucosa is pink and moist. Anicteric. Acyanotic. Neck: Supple. This is positive for JVD. Chest: Air entry is bilaterally reduced. There are diffuse bilateral crepitations. Cardiovascular: Regular rate and rhythm. No murmurs, no rubs. No gallops. Abdomen: Soft, distended, but nontender. On the chest wall, there is a pacemaker generator on the left anterior chest wall. WAITER/WAITRESS CLUB: Patient is alert and oriented x4. No focal neurological deficit. LABORATORY DATA: WBC 7.92, hemoglobin is 10.6, platelet count of 200. There is no chemistry for today. X-RAY DATA: A CT scan of the lungs which was done yesterday because of hemoptysis show a left- sided pulmonary embolus with some pleural effusions and pulmonary edema, plus- minus pneumonia. CURRENT MEDICATIONS: 1. [place]. 2. Amiodarone. 3. Lipitor. 4. Heparin drip. 5. Metronidazole. ASSESSMENT: 1. Acute respiratory distress. I think it is a combination of different etiologies including: (1) Pulmonary edema; (2) Left-sided pulmonary embolus; (3) Possible pneumonia. We are going to be addressing each one of them. 2. Left acute pulmonary embolism. The patient was on Xarelto for atrial fibrillation anticoagulation, and he still developed this huge pulmonary embolus. We started a drip of heparin yesterday. We will consult both cardiology and hematology/oncology on the case. 3. History of ischemic cardiomyopathy with ejection fraction of 43% on echocardiogram done almost a year ago. 4. Atrial fibrillation, currently rate controlled. 5. Hemoptysis secondary to pulmonary embolus. This is improving. 6. Possible pneumonia on the CT scan. We will start the patient on antibiotics. GENERAL PLAN: The patient seems to be having difficulty breathing. I think this is a combination of the pleural effusion and pulmonary edema. So, I will give him a dose of Lasix stat 60 mg. He will continue with the IV heparin. I will repeat an echo and do a chest x-ray. Will do an EKG, consult cardiology. I will review the patient this afternoon with the results. addendum: Went back at about 6:00pm to re-evaluated patient. He was in bed seemed more comfortable. Cardiology was seeing the patient so I see the patient again in the morning. MTDD
--- NOTE | 2016-04-28 13:41 | Diag Imaging Result Document ---
PROCEDURE NAME: CHEST-PORTABLE - 04/28/2016 PORTABLE CHEST: COMPARISON: 04/26/2016. FINDINGS: The patient is rotated to the left. There is a left-sided pacemaker. The heart is enlarged. There are infiltrates throughout the right lung and in the left base. I believe there are pleural effusions as well. The overall appearance is quite similar to that of the prior exam. IMPRESSION: No interval improvement.
[2016-04-28] MEDS: LEVAQUIN 750 MG/D5W 150 ML IV SCH (14:10)
--- NOTE | 2016-04-28 14:51 | EKG Report ---
Test Performed on : 04/28/2016 1:16:49 PM Test Reason : sob Blood Pressure : / mmHG Vent. Rate : 070 BPM Atrial Rate : 070 BPM P-R Int : 186 ms QRS Dur : 192 ms QT Int : 532 ms P-R-T Axes : 003 125 -32 degrees QTc Int : 574 ms AV dual-paced rhythm Biventricular pacemaker detected Abnormal ECG When compared with ECG of 24-JAN-2016 17:23, No significant change was found Confirmed by Allan JACOBO, Clayton Wilson ([id number]) on 04/28/2016 3:42:39 PM
[2016-04-28 15:01] LABS: AGAP 13; BUN 6 mg/dL (8-22); CALCIUM 8.3 mg/dL (8.8-10.2); CHLORIDE 102 mmol/L (98-107); COSMO 278; POTASSIUM 4.1 mmol/L (3.5-5.1); SODIUM 141 mmol/L (136-145); TCO2 26 mmol/L (25-35)
[2016-04-28] MEDS: DUONEB (A & A) INH PRN (16:33)
--- NOTE | 2016-04-28 18:32 | ECHO REPORT ---
ORDER DATE: 04/28/2016 INTERPRETING PHYSICIAN: Dr. Payton REQUESTING PHYSICIAN: Hospitalist. CLINICAL INDICATIONS: Chest pain, coronary heart disease, AICD. A 75-year-old male. M-MODE MEASUREMENTS: Right ventricle: 4.2 cm. Left ventricle end diastole: 7.3 cm. Left ventricle end systole: 5.8 cm. Posterior wall: 1.2 cm. Interventricular septum: 1.4 cm. Left atrium: 5.2 cm. Aortic root: 3.9 cm. SUMMARY OF 2-DIMENSIONAL IMAGING: The left ventricular chamber is markedly dilated. The global ejection fraction is estimated at 48%. There is akinesis of the basal to mid posterior wall as well as the basal to mid inferior wall consistent with an inferoposterior myocardial infarction. The septum, the anterior wall, and a good portion of the lateral wall show good contractility as well as the apex of the left ventricle. A pacemaker/defibrillator lead is noted within the right-sided chamber. The left-sided chamber appears to be moderately enlarged. The left atrium is probably mildly enlarged. The mitral valve shows a mild degree of regurgitation. Pulse wave Doppler of mitral inflow shows reversal of the E and the A wave. Tissue Doppler of septal and lateral mitral annulus averages 5.5 cm per second. There is impaired left ventricular relaxation. The aortic valve shows sclerosis of the cusp. Color flow mapping indicates a mild degree of regurgitation. There is no aortic stenosis. The tricuspid valve shows a mild degree of regurgitation. The inferior vena cava is not dilated. Pulmonary pressure estimated in the range of 67-72 mmHg. The pulmonic valve shows a mild degree of regurgitation. The pulmonary venous flow shows normal pattern with a systolic gradient and diastolic flow. There is no pericardial effusion, masses or thrombus. IMPRESSION: In summary, this study shows: 1. Mildly impaired systolic function. Global ejection fraction 48% with markedly enlarged left ventricular chamber. There is wall motion abnormality at the level of the inferoposterior wall of the left ventricle consistent with coronary heart disease. The inferoposterior segment is akinetic. 2. Mild degree of mitral, tricuspid, pulmonic, and aortic regurgitation. 3. Impaired left ventricular relaxation. 4. Pulmonary systolic pressure is elevated and is estimated at 68-72 mmHg. 5. The right ventricle is moderately enlarged. Clinical correlation recommended.
--- NOTE | 2016-04-28 18:59 | CONSULTATION ---
DATE OF CONSULTATION: 04/28/2016 IMPRESSION: 1. Recent pulmonary embolus. 2. Recent admission for recurrent urinary tract infection which is catheter-related. Patient is status post treatment and placement of suprapubic catheter during this hospital stay. 3. Status post treatment with antibiotics and placing a suprapubic catheter which has historically been associated with fewer urinary tract infections in this individual based on prior experience. 4. Neurogenic bladder. 5. Ischemic cardiomyopathy with history of previous myocardial infarction. Left ventricular ejection fraction as low as 20% but most recent left ventricular ejection fraction 40%. 6. Atrial fibrillation, paroxysmal. Patient continues in dual-chamber paced rhythm on amiodarone. 7. Status post pacemaker with implantable defibrillator. 8. Hypertension. 9. Hyperlipidemia. 10. Obesity with history of previous bariatric surgery. 11. Status post fall in February of this year with resultant right hip fracture that required right hip replacement. RECOMMENDATIONS: 1. Agree with anticoagulation with intravenous heparin. Alternatively Lovenox 1 mg/kg subcutaneous q.12 hours could be utilized. 2. Long-term anticoagulation is appropriate. It appears reasonable to consider use of newer anticoagulation such as Eliquis 5 mg p.o. b.i.d. 3. Continue amiodarone at current dose. HISTORY: This 75-year-old, white male, with a past history of neurogenic bladder, recurrent urinary tract infections due to related to catheters, ischemic cardiomyopathy, hypertension, hyperlipidemia, and recent right hip fracture requiring right hip replacement, who was recently admitted with recurrent urinary tract infections. Since his right hip fracture and right hip replacement, he had been through rehabilitation and had regained ability to walk reasonably well. He was admitted for treatment of his urinary tract infection associated with catheter. He was treated with antibiotics. He previously had a suprapubic catheter and desired to have this again as it had been associated with fewer urinary tract infections in the past. This was recently accomplished. During his hospital stay he has been ambulatory but has started to feel weak in the last few days and started having hemoptysis for several days. He was evaluated for possible pulmonary embolus and today had angiography performed demonstrating pulmonary embolus in the left lung. Anticoagulant with heparin has been initiated. He denies any chest pain. His primary automatic coil machine operator is Dr. Servin. PAST MEDICAL HISTORY: 1. Ischemic cardiomyopathy with history of previous myocardial infarction. Patient is status post pacemaker and implantable defibrillator. 2. Atrial fibrillation has been suppressed with amiodarone. 3. Neurogenic bladder. 4. Obesity with history of previous bariatric surgery. 5. Hypertension. 6. Hyperlipidemia. 7. History of suspected myasthenia gravis. PAST SURGICAL HISTORY: Right hip replacement and left hip replacement. He is also status post gastric bypass, tonsillectomy and transurethral resection of prostate with suprapubic catheter placement. ALLERGIES: No known drug allergies. MEDICATIONS: As listed. SOCIAL HISTORY: He quit smoking following his myocardial infarction at age 48. He discontinued alcohol use after he developed atrial fibrillation 5 or 6 years ago. He is retired. He previously worked in [employer] and ran several [employer]. He also sold heavy equipment. FAMILY HISTORY: Positive for early coronary disease. REVIEW OF SYSTEMS: Pulmonary: Noteworthy for recent hemoptysis and cough but otherwise negative. Gastrointestinal: Noteworthy for recent diarrhea. Patient relates that he has developed C. difficile colitis on antibiotics and this is being treated. Constitutional: Negative. Remainder of review of systems negative/noncontributory with 14 total systems reviewed. PHYSICAL EXAMINATION: General: Overweight, older white male, in no distress. Vital Signs: As recorded including blood pressure 122/65, heart rate 70 and regular. HEENT Examination: Extraocular movements intact. Mucous membranes moist. Neck: Supple. No JV distention. There are no carotid bruits. Chest: Clear to auscultation. Cardiac examination: Reveals a regular rate and rhythm without appreciable murmur or gallop. Abdomen: Soft, nontender. Bowel sounds are normal. Extremities: Without edema. Neurologic Examination: Reveals him to be alert, fully oriented. Speech is fluent. Moves all 4 extremities equally well. Skin: Warm, dry. Psychiatric Examination: Reveals mood to be appropriate. IMAGING STUDIES: ECG demonstrates atrial ventricular paced rhythm.
[2016-04-28] MEDS: LASIX IV SCH (19:55)
[2016-04-28] MEDS: COREG PO SCH (21:14)
[2016-04-28] MEDS: LIPITOR PO SCH (21:15)
[2016-04-28] MEDS: ROBINUL PO PRN (21:17)
[2016-04-28] MEDS: AMBIEN PO PRN (22:41)
[2016-04-29] MEDS: DUONEB (A & A) INH PRN ×4 (00:31→19:03)
[2016-04-29] MEDS: FLAGYL PO SCH ×4 (02:34→20:46)
[2016-04-29] MEDS: XANAX PO PRN ×3 (03:45→21:53)
[2016-04-29] MEDS: NORCO-10 PO PRN ×3 (05:17→21:53)
[2016-04-29] MEDS: LASIX IV SCH (05:18)
[2016-04-29] MEDS: MESTINON PO SCH ×3 (05:19→20:46)
[2016-04-29] MEDS ORDERED: HEPARIN 25,000 UNITS/D5W 250 ML IV SCH ×2 (05:36→05:40)
[2016-04-29] MEDS: PRILOSEC PO SCH (06:00)
[2016-04-29 07:12] LABS: MANUAL DIFF NEEDED? NO
[2016-04-29 07:17] LABS: BASO% 0.4 % (0.0-0.8); EOS# 0.62 X1000 (0.0-0.7); EOS% 7.3 % (0.0-10.0); HEMATOCRIT 36.4 % (42.0-52.0); HEMOGLOBIN 11.5 g/dL (14.0-18.0); LYMPH# 1.13 X1000 (1.2-3.4); LYMPH% 13.3 % (20.5-51.1); MCHC 31.6 g/dL (33-37); MONO# 0.86 X1000 (0.11-0.59); MONO% 10.1 % (1.7-9.3); NEUT% 68.9 % (42.2-75.2); PLT 208 X1000 (130-400); RBC 3.83 XMIL (4.7-6.1)
[2016-04-29 07:38] LABS: AGAP 14; BUN 6 mg/dL (8-22); CALCIUM 8.6 mg/dL (8.8-10.2); CHLORIDE 98 mmol/L (98-107); COSMO 274; POTASSIUM 3.4 mmol/L (3.5-5.1); SODIUM 139 mmol/L (136-145); TCO2 27 mmol/L (25-35)
[2016-04-29] MEDS ORDERED: KLOR-CON PO ONE (08:28)
[2016-04-29] MEDS: VITAMIN B-12 PO SCH (09:47)
[2016-04-29] MEDS: MYCOSTATIN SUSP PO SCH ×4 (09:47→20:56)
[2016-04-29] MEDS: CORDARONE PO SCH ×2 (09:47→20:46)
[2016-04-29] MEDS: COREG PO SCH ×2 (09:47→20:46)
[2016-04-29] MEDS: SYNTHROID PO SCH (09:47)
[2016-04-29] MEDS: HEPARIN 25,000 UNITS/D5W 250 ML IV SCH ×2 (09:48→22:44)
[2016-04-29] MEDS: LEVAQUIN 750 MG/D5W 150 ML IV SCH (14:35)
--- NOTE | 2016-04-29 15:09 | PROGRESS NOTE ---
DATE: 04/29/2016 SUBJECTIVE: This morning, Mr. Vela refers to be doing okay. Complaining of some lower back pain and how he wants his pain medication to be uptitrated. However, his hemoptysis has resolved, and the diarrhea is also improved. As a matter of fact, today he has not had any bowel movement. OBJECTIVE: Vital signs: Blood pressure is 123/54, pulse of 70. Respiration is 22. Temperature is 97.9. General exam: Mr. Vela is 75-year-old male. He is in bed. Did not seem to be in any remarkable distress. Mucosa is pink and moist, anicteric, and acyanotic. Neck: Supple. Chest: Good air entry bilaterally, a few bibasilar crepitations. Cardiovascular: Regular rate and rhythm. No murmurs. No rubs. No gallops. Abdomen: Soft, nontender. Extremities: No pedal edema. YOGA TEACHER: Patient is alert and oriented x4. There is no focal neurological deficit. On the anterior chest wall, there is a pocket for the pacemaker. LABORATORY DATA: WBC is 8.50, hemoglobin 11.3, platelet count of 208. Chemistry is reviewed. Potassium is 3.4. Rest is unremarkable. A chest x-ray done yesterday in the afternoon showed infiltrates throughout the right lung and the left base. CURRENT MEDICATIONS: Current medications include: 1. [place]. 2. Xanax. 3. Amiodarone 200 b.i.d. 4. Lipitor 20 mg at bedtime. 5. Carvedilol 3.125. 6. Glycopyrrolate. 7. Heparin drip. 8. Levofloxacin 150 q. eight. 9. Levothyroxine. 10. Mestinon. 11. Lasix 40 daily. ASSESSMENT: 1. Acute respiratory distress. Etiology is multifactorial including left-sided pulmonary emboli/pneumonia/pulmonary edema. 2. Left acute pulmonary embolism. Patient was on Xarelto and developed the pulmonary embolism. Not sure if this could theoretically be said to have failed Xarelto therapy. Patient is currently on heparin drip. I discussed the anticoagulation with the other newer agents, and he said he has already been on Eliquis before, but he could not afford it, so he has shown preference towards Coumadin. Will therefore start 10 mg of Coumadin tonight. Repeat an INR and titrate it, overlap it with the heparin drip as well. 3. History of ischemic cardiomyopathy with ejection fraction of 43%. 4. Atrial fibrillation, currently rate control. 5. Pneumonia on the CT scan. Patient is currently on antibiotics and seems to be doing okay. 6. Clostridium difficile colitis. Patient continues to be on metronidazole. 7. Mild hypokalemia. Will replace this. GENERAL PLAN: Patient seems to be stable. He refers he will not be able to afford the newer anticoagulants. We will therefore start the patient on Coumadin. All the risk factors have been discussed with the patient. We will do an INR in the morning and repeat it. Will plan to overlap the heparin drip with the Coumadin until patient is anticoagulated on the Coumadin, then will discontinue the heparin drip. Altered mental status on presented due to urinary tract infection (klebsiella and Escherichia coli). This has resolved. Nasogastric bladder, status post suprapubic catheter placement. MTDYang
--- NOTE | 2016-04-29 15:09 | PROGRESS NOTE ---
DATE: 04/29/2016 SUBJECTIVE: Mr. Vela reports he is having some back discomfort, but otherwise no heart racing. PHYSICAL EXAMINATION: Vital Signs: He is afebrile. Heart rate is 72. Blood pressure is 123/54. General: He is in no acute distress. Cardiovascular: He sounds to be in a regular rate and rhythm presently. He has no murmurs. He has trace to 1+ bilateral lower extremity edema. Chest: Examination sounds clear, with poor inspiratory effort. Abdomen: Soft and nontender. PERTINENT DATA: White count is 8.5, hematocrit 36.4, platelet count is 208,000. Sodium 139, potassium 3.4, BUN 6, creatinine 0.7. Echocardiogram on 04/28/2016 demonstrated an EF of 48%. ASSESSMENT: 1. Pulmonary embolus. 2. Atrial fibrillation. PLAN: He is currently on heparin infusion. We will continue him on this. In addition, he is being bridged with Coumadin. The patient has some financial issues and apparently will not be able to afford one of the novel oral anticoagulants, so I think it is reasonable to use warfarin.
[2016-04-29] MEDS: LIPITOR PO SCH (20:46)
[2016-04-29] MEDS: COUMADIN PO SCH (20:50)
[2016-04-29] MEDS: AMBIEN PO PRN (21:53)
[2016-04-30] MEDS: FLAGYL PO SCH ×4 (01:41→20:36)
[2016-04-30] MEDS: PRILOSEC PO SCH (06:00)
[2016-04-30] MEDS: HEPARIN 25,000 UNITS/D5W 250 ML IV SCH ×3 (06:00→18:17)
[2016-04-30] MEDS: MESTINON PO SCH ×3 (06:01→20:35)
[2016-04-30 07:26] LABS: MANUAL DIFF NEEDED? NO
[2016-04-30 07:40] LABS: BASO% 0.5 % (0.0-0.8); EOS# 0.59 X1000 (0.0-0.7); EOS% 9.5 % (0.0-10.0); HEMOGLOBIN 11.7 g/dL (14.0-18.0); IMM GRAN# 0.02 X1000 (0.0-0.04); IMM GRAN% 0.3 % (0.0-0.5); LYMPH# 1.31 X1000 (1.2-3.4); LYMPH% 21.2 % (20.5-51.1); MCH 30.6 PG (27-31); MCHC 32.5 g/dL (33-37); MCV 94.2 FL (81-99); MONO# 0.71 X1000 (0.11-0.59); MONO% 11.5 % (1.7-9.3); PLT 196 X1000 (130-400); RBC 3.82 XMIL (4.7-6.1)
[2016-04-30 07:47] LABS: PROTIME 16.3 Seconds (9.2-11.7); PTT HEPARIN PROTOCOL 110.4 Seconds
[2016-04-30 07:48] LABS: INR 1.62
[2016-04-30 08:04] LABS: AGAP 10; BUN 5 mg/dL (8-22); CHLORIDE 99 mmol/L (98-107); COSMO 276; POTASSIUM 3.1 mmol/L (3.5-5.1); SODIUM 140 mmol/L (136-145); TCO2 31 mmol/L (25-35)
[2016-04-30] MEDS: VITAMIN B-12 PO SCH (08:29)
[2016-04-30] MEDS: SYNTHROID PO SCH (08:29)
[2016-04-30] MEDS: COREG PO SCH ×2 (08:29→20:36)
[2016-04-30] MEDS: LASIX IV SCH (08:29)
[2016-04-30] MEDS: NORCO-10 PO PRN ×2 (08:29→16:40)
[2016-04-30] MEDS ORDERED: KLOR-CON PO ONE (08:59)
[2016-04-30] MEDS: CORDARONE PO SCH ×2 (09:00→20:36)
[2016-04-30] MEDS: MYCOSTATIN SUSP PO SCH ×4 (10:59→20:38)
[2016-04-30] MEDS: DUONEB (A & A) INH PRN ×4 (11:15→20:26)
[2016-04-30] MEDS: LEVAQUIN 750 MG/D5W 150 ML IV SCH (13:35)
--- NOTE | 2016-04-30 15:28 | PROGRESS NOTE ---
DATE: 04/30/2016 SUBJECTIVE: Today Mr. Vela referred to be doing okay. He was being helped to have a dry shower at the time that I saw him. OBJECTIVE: General: Mr. Vela is a 75-year-old male. He was in bed, not is distress. HEENT: Mucosa pink and moist. Anicteric. Acyanotic. Vital signs: Blood pressure is 156/61, pulse of 70, respirations 18, temperature is 98.1 degrees. Chest: Good air entry bilateral. A few bibasilar crepitations. There was a generator pocket on the left anterior chest wall. Cardiovascular: Regular rate and rhythm. No murmurs. No rubs. No gallops. Abdomen: Soft. CONCRETE VAULT MAKER: The was patient was alert and oriented. Musculoskeletal: Unremarkable. LABORATORY DATA: CBC is reviewed, unremarkable. Platelet count is 196,000. Chemistry reviewed. Potassium is 3.1, will replace that. ASSESSMENT: 1. Acute respiratory distress, improving. 2. Left acute pulmonary embolism. The patient is currently on Coumadin, bridging with a heparin drip. 3. Dilated cardiomyopathy secondary to coronary artery disease. 4. Congestive heart failure (both diastolic and systolic dysfunction). 5. Pulmonary hypertension with right artery systolic pressure of 62-72 on recent echo. 6. Atrial fibrillation. Currently rate controlled. 7. Pneumonia. Patient is on antibiotics. Today is day 3 on levofloxacin. 8. Clostridium difficile colitis. The patient is on metronidazole for a total of 14 days. Diarrhea has improved. 9. Electrolyte imbalance including hypokalemia. We will continue to replace this. PLAN: In general, Mr. Vela seems to be doing a whole lot better. INR is 1.6 today. We are going to dose him again with 10 mg of Coumadin to overlap with heparin. Will continue with the current antibiotic coverage. We will repeat his chest x-ray, proBNP, and chemistry for tomorrow morning.
[2016-04-30] MEDS: COUMADIN PO SCH (20:36)
[2016-04-30] MEDS: LIPITOR PO SCH (20:38)
[2016-04-30] MEDS: AMBIEN PO PRN (23:02)
[2016-05-01] MEDS: FLAGYL PO SCH ×4 (01:04→20:56)
[2016-05-01] MEDS: XANAX PO PRN ×3 (01:04→20:55)
[2016-05-01] MEDS: NORCO-10 PO PRN (03:11)
[2016-05-01] MEDS: DUONEB (A & A) INH PRN ×5 (03:15→19:17)
[2016-05-01 05:42] LABS: MANUAL DIFF NEEDED? NO
[2016-05-01] MEDS: MESTINON PO SCH ×3 (05:44→20:55)
[2016-05-01 05:48] LABS: BASO% 0.4 % (0.0-0.8); EOS# 0.52 X1000 (0.0-0.7); EOS% 7.3 % (0.0-10.0); HEMATOCRIT 36.2 % (42.0-52.0); HEMOGLOBIN 11.6 g/dL (14.0-18.0); IMM GRAN# 0.02 X1000 (0.0-0.04); IMM GRAN% 0.3 % (0.0-0.5); LYMPH# 1.05 X1000 (1.2-3.4); LYMPH% 14.7 % (20.5-51.1); MCH 30.4 PG (27-31); MONO# 0.82 X1000 (0.11-0.59); MONO% 11.5 % (1.7-9.3); MPV 9.6 FL (7.4-10.4); NEUT% 65.8 % (42.2-75.2); PLT 196 X1000 (130-400); RBC 3.81 XMIL (4.7-6.1)
[2016-05-01] MEDS ORDERED: KLOR-CON PO ONE (05:51)
[2016-05-01] MEDS ORDERED: NS 500 ML ONE (06:14)
[2016-05-01] MEDS: POTASSIUM CHLORIDE 20 MEQ/SWI 100 ML IV SCH ×2 (06:20→10:06)
[2016-05-01] MEDS: PRILOSEC PO SCH (06:20)
[2016-05-01 06:42] LABS: AGAP 10; BUN 5 mg/dL (8-22); CALCIUM 8.3 mg/dL (8.8-10.2); CHLORIDE 98 mmol/L (98-107); COSMO 277; MAGNESIUM 1.5 mg/dL (1.5-2.7); POTASSIUM 4.6 mmol/L (3.5-5.1); SODIUM 140 mmol/L (136-145); TCO2 32 mmol/L (25-35)
[2016-05-01] MEDS ORDERED: HEPARIN 25,000 UNITS/D5W 250 ML IV SCH (07:46)
--- NOTE | 2016-05-01 07:54 | Diag Imaging Result Document ---
PROCEDURE NAME: CHEST-PORTABLE - 05/01/2016 PORTABLE CHEST X-RAY, 05/01/2016: COMPARISON: 04/28/2016. FINDINGS: Stable pacemaker and cardiomegaly. Stable large opacifications at the left lung base suggesting an effusion. Stable infiltrate throughout the lungs bilaterally right greater than left. IMPRESSION: No change from prior.
[2016-05-01] MEDS: HEPARIN 25,000 UNITS/D5W 250 ML IV SCH ×2 (08:31→13:17)
[2016-05-01] MEDS: SYNTHROID PO SCH (08:35)
[2016-05-01] MEDS: LASIX IV SCH (08:35)
[2016-05-01] MEDS: VITAMIN B-12 PO SCH (08:35)
[2016-05-01] MEDS: MYCOSTATIN SUSP PO SCH ×4 (08:35→20:56)
[2016-05-01] MEDS: CORDARONE PO SCH ×2 (08:35→20:55)
[2016-05-01] MEDS: COREG PO SCH ×2 (08:35→20:55)
[2016-05-01 10:58] LABS: PROTIME 65.9 Seconds (9.2-11.7)
[2016-05-01 11:07] LABS: INR 6.71
[2016-05-01] MEDS: LEVAQUIN 750 MG/D5W 150 ML IV SCH (13:22)
[2016-05-01] MEDS: ZOFRAN IV PRN (13:38)
--- NOTE | 2016-05-01 19:07 | PROGRESS NOTE ---
DATE: 05/01/2016 SUBJECTIVE: Today Mr. Vela refers to be doing fine. He denies any cough or any bleeding. According to him he had 2 episodes of diarrhea today but it is really more formed than before. OBJECTIVELY: Vital Signs: Stable. Blood pressure is 134/62, pulse of 74, respirations 16, temperature is 98.5 degrees. General Examination: Mr. Vela is a 75-year-old, male. He is in bed. He is not in any distress. HEENT: Mucus is pink and moist. Anicteric. Acyanotic. Neck: Supple. Chest: Good air entry bilaterally. There are a few distant coarse crackles in the posterior lung rick. There is a generator pocket on the left anterior chest wall. Cardiovascular: Regular rate and rhythm. No murmurs, no rubs, no gallops. Abdomen: Soft, nontender. Bowel sounds are present. Central Nervous System: Patient is alert and oriented x4. There is no focal neurological deficit. DIAGNOSTIC STUDIES: A chest x-ray this morning shows stable large opacification at the left lung base suggestive of infusion. ASSESSMENT: 1. Acute respiratory distress, improving. 2. Left acute pulmonary embolism. Patient is on Heparin. Coumadin was given to him 10 mg last night. INR this morning is 6.71 so we will discontinue the heparin. We will not give any Coumadin tonight and repeat the INR tomorrow, and dose it accordingly. 3. Dilated cardiomyopathy secondary to coronary artery disease. 4. Congestive heart failure (both diastolic and systolic dysfunction). 5. Pulmonary hypertension with pulmonary artery systolic pressure of 62-70 on resting echo. 6. Atrial fibrillation currently rhythm and rate controlled. 7. Multifocal pneumonia. Patient is on antibiotics. Today is day 3. 8. C. difficile colitis. The patient is on metronidazole for a total of 14 days. Diarrhea has significantly improved. Today is day 6 on metronidazole. 9. Hypokalemia, resolved. In general, proBNP has also improved from 21,000 to 7,798. As I said, patient is remarkably doing fine. We are waiting to discontinue the heparin drip because he is over anticoagulated. We will not give him any Coumadin tonight. We will repeat the INR for tomorrow morning. If the INR is in the therapeutic range, we will start Coumadin at the lower dose and hopefully get the patient out tomorrow or the day after. I understand patient does not have a rehabilitation bed, so whenever he is ready for discharge he will be going home with home health. MTDYang
[2016-05-01] MEDS: LIPITOR PO SCH (20:55)
[2016-05-01] MEDS: AMBIEN PO PRN (23:24)
[2016-05-02] MEDS: FLAGYL PO SCH ×4 (02:45→20:08)
[2016-05-02] MEDS: DUONEB (A & A) INH PRN ×4 (05:51→22:45)
[2016-05-02] MEDS: PRILOSEC PO SCH ×2 (05:53→06:59)
[2016-05-02] MEDS: MESTINON PO SCH ×3 (05:54→20:06)
[2016-05-02] MEDS: NORCO-10 PO PRN ×2 (05:58→20:06)
[2016-05-02 08:01] LABS: PROTIME > 100.0 Seconds (9.2-11.7)
[2016-05-02 08:05] LABS: INR > 11.25
[2016-05-02] MEDS: COREG PO SCH ×3 (08:29→20:07)
[2016-05-02] MEDS: CORDARONE PO SCH ×2 (08:30→20:07)
[2016-05-02] MEDS: SYNTHROID PO SCH (08:30)
[2016-05-02] MEDS: LASIX IV SCH (08:30)
[2016-05-02] MEDS: VITAMIN B-12 PO SCH (08:30)
[2016-05-02] MEDS: MYCOSTATIN SUSP PO SCH ×4 (08:30→20:08)
[2016-05-02] MEDS ORDERED: VITAMIN K PO ONE (08:32)
[2016-05-02 09:46] LABS: AGAP 14; BUN 6 mg/dL (8-22); CALCIUM 8.5 mg/dL (8.8-10.2); CHLORIDE 100 mmol/L (98-107); COSMO 280; POTASSIUM 3.8 mmol/L (3.5-5.1); SODIUM 141 mmol/L (136-145); TCO2 27 mmol/L (25-35)
[2016-05-02] MEDS: LEVAQUIN 750 MG/D5W 150 ML IV SCH (13:08)
--- NOTE | 2016-05-02 13:12 | PROGRESS NOTE ---
DATE: 05/02/2016 Mr. Vela has not had significant clinical change from the neuromuscular standpoint. He reports diarrhea is improved. He seems to be tolerating his baseline pyridostigmine dose 60 mg t.i.d. I do not have any new suggestion from the neurologic standpoint. I hope that his leg strength and stamina will improve as diarrhea is controlled. Thanks for allowing me to follow Mr. Vela.
--- NOTE | 2016-05-02 16:43 | PROGRESS NOTE ---
DATE: 05/02/2016 SUBJECTIVE: Today Mr. Vela referred to be doing okay. Seems a whole lot stronger than before. Diarrhea has improved. OBJECTIVE: Vital Signs: Stable. Blood pressure is 107/47, pulse of 69, respirations 14, temperature is 97.8 degrees. General: Mr. Vela a 75-year-old male. He is in bed, does not seems to be in any distress. HEENT: Mucosa is pink and moist. Anicteric. Acyanotic. Neck: Supple. Chest: Clear. Cardiovascular: Regular rate and rhythm. Abdomen: Soft, is distended but nontender. Extremities: No pedal edema. Skin: The patient has a generator pocket on the left anterior chest wall. LABORATORY DATA: CBC is reviewed. Unremarkable. Chemistries reviewed, completely normal. The INR is more than 11.25. The patient is currently not bleeding even with this level of INR. ASSESSMENT: 1. Over anticoagulation with Coumadin. Patient's INR is more than 10. He is not having any overt bleeding. We are going to give him a low dose of vitamin K p.o., repeat the INR for tomorrow. 2. Left acute pulmonary embolism. The patient was on heparin bridged with Coumadin. It looks like now he is over anticoagulated so we will correct it to normal range and take it from there. 3. Acute respiratory distress due to pneumonia and congestive heart failure. 4. Congestive heart failure both diastolic and systolic with acute exacerbation improved. 5. Dilated cardiomyopathy secondary to coronary artery disease. 6. Atrial fibrillation currently rate controlled. 7. Multifocal pneumonia. Today is day 4 on antibiotics. 8. Clostridium difficile colitis. Patient is on metronidazole, today is day 7. Seems to be improving. Will plan to treat for 14 days. 9. Hypokalemia resolved. 10. Lower extremity weakness has been improving. 11. Altered mental status which is one of the reasons why the patient presented. Has completely resolved. PLAN: In general patient has supratherapeutic range of INR. We are going to give him a dose of vitamin K. Heparin has been stopped from yesterday. Hopefully we might be able to let the patient go home soon depending on the INR. [facility]
[2016-05-02] MEDS: LIPITOR PO SCH (20:06)
[2016-05-02] MEDS: XANAX PO PRN (20:06)
[2016-05-03] MEDS: AMBIEN PO PRN (00:29)
[2016-05-03] MEDS: DUONEB (A & A) INH PRN ×4 (02:55→20:20)
[2016-05-03] MEDS: NORCO-10 PO PRN ×3 (03:09→20:00)
[2016-05-03] MEDS: ZOFRAN IV PRN (03:09)
[2016-05-03] MEDS: MESTINON PO SCH ×4 (03:10→22:22)
[2016-05-03] MEDS: FLAGYL PO SCH ×4 (03:11→20:00)
[2016-05-03] MEDS: PRILOSEC PO SCH (06:30)
[2016-05-03 07:32] LABS: MANUAL DIFF NEEDED? NO
[2016-05-03 07:35] LABS: BASO% 0.1 % (0.0-0.8); EOS# 0.15 X1000 (0.0-0.7); EOS% 2.2 % (0.0-10.0); HEMATOCRIT 35.8 % (42.0-52.0); HEMOGLOBIN 11.4 g/dL (14.0-18.0); LYMPH# 0.67 X1000 (1.2-3.4); LYMPH% 9.7 % (20.5-51.1); MCH 30.3 PG (27-31); MCHC 31.8 g/dL (33-37); MCV 95.2 FL (81-99); MONO# 0.59 X1000 (0.11-0.59); MONO% 8.6 % (1.7-9.3); MPV 10.1 FL (7.4-10.4); NEUT% 79.4 % (42.2-75.2); PLT 166 X1000 (130-400); RBC 3.76 XMIL (4.7-6.1)
--- NOTE | 2016-05-03 07:38 | Diag Imaging Result Document ---
PROCEDURE NAME: CHEST-PORTABLE - 05/03/2016 PORTABLE CHEST X-RAY, 05/03/2016: COMPARISON: 05/01/2016. FINDINGS: Stable retrocardiac effusion and infiltrate. Stable infiltrate throughout the right lung. Stable cardiomegaly. No new infiltrates. IMPRESSION: No change from prior.
[2016-05-03 08:00] LABS: AGAP 12; BUN 8 mg/dL (8-22); CALCIUM 8.3 mg/dL (8.8-10.2); CHLORIDE 99 mmol/L (98-107); COSMO 279; POTASSIUM 4.1 mmol/L (3.5-5.1); SODIUM 140 mmol/L (136-145); TCO2 29 mmol/L (25-35)
[2016-05-03 08:11] LABS: INR 4.68; PROTIME 46.3 Seconds (9.2-11.7)
[2016-05-03] MEDS: LASIX IV SCH (08:29)
[2016-05-03] MEDS: CORDARONE PO SCH ×2 (08:34→22:22)
[2016-05-03] MEDS: VITAMIN B-12 PO SCH (08:34)
[2016-05-03] MEDS: COREG PO SCH ×2 (08:34→22:22)
[2016-05-03] MEDS: MYCOSTATIN SUSP PO SCH ×4 (08:35→22:24)
[2016-05-03] MEDS: SYNTHROID PO SCH (11:12)
--- NOTE | 2016-05-03 11:34 | PROGRESS NOTE ---
DATE: 05/03/2016 Mr. Vela reports sense of weakness in the legs. Stamina has been reduced due to diarrhea and hemoptysis. He walked from the bedside to the doorway with physical therapy assistance today. I am optimistic that stamina will continue to improve with control of his medical problems. I am again reluctant to increase pyridostigmine dose above current baseline. Further plans will depend on his clinical course. Thanks for allowing me to follow Mr. Vela. [facility]
[2016-05-03] MEDS: LEVAQUIN 750 MG/D5W 150 ML IV SCH (13:51)
[2016-05-03] MEDS: XANAX PO PRN ×2 (13:58→20:00)
--- NOTE | 2016-05-03 17:23 | PROGRESS NOTE ---
DATE: 05/03/2016 Today Mr. Vela refers to be doing fine. Did have some generalized complaints and the fact that he thinks he will be going home alone he wants to be a little stronger before he goes. OBJECTIVE: Vital Signs: Stable. Blood pressure is 123/57, pulse of 71, respirations 20, temperature is 98.1 degrees. Physical exam is pretty much unchanged from days before. Patient continues to be alert and oriented. There is a suprapubic Boyer catheter in place and there is a generator pocket on the left anterior chest wall. LABORATORY DATA: INR is 4.68 today. Chemistry has been reviewed, is completely normal. ASSESSMENT: 1. Supratherapeutic INR due to Coumadin. This has improved very significantly. We will give the patient only 2.5 of Coumadin tonight. 2. Left acute pulmonary embolism. 3. Acute respiratory distress due to pneumonia/PE/congestive heart failure. 4. CHF with both diastolic and systolic dysfunctions. 5. Dilated cardiomyopathy secondary to coronary artery disease. 6. Atrial fibrillation currently rate controlled. 7. Multifocal pneumonia. Patient is on antibiotics. Today is day 5 (Levaquin). 8. Clostridium difficile diarrhea. The patient is on metronidazole. Today is day 8. Hypokalemia resolved. 1. Lower extremity weakness on presentation, this has improved. 2. Altered mental status on presentation. This is also improved. 3. Recurrent UTI with neurogenic bladder status post suprapubic catheter placement. So our general plan patient seems to be doing fine. INR was supratherapeutic. It is now a little better. We will check on that tomorrow. Hopefully we can be able to discharge the patient soon.
[2016-05-03] MEDS ORDERED: COUMADIN PO SCH (21:00)
[2016-05-03] MEDS: LIPITOR PO SCH (22:21)
[2016-05-04] MEDS: AMBIEN PO PRN ×2 (00:07→21:38)
[2016-05-04] MEDS: DUONEB (A & A) INH PRN ×4 (00:31→18:24)
[2016-05-04] MEDS: FLAGYL PO SCH ×4 (04:22→21:38)
[2016-05-04] MEDS: NORCO-10 PO PRN ×2 (04:22→14:18)
[2016-05-04] MEDS: PRILOSEC PO SCH ×2 (04:23→08:52)
[2016-05-04] MEDS: MESTINON PO SCH ×3 (04:23→21:38)
[2016-05-04 07:32] LABS: INR 5.9; PROTIME 58.1 Seconds (9.2-11.7)
[2016-05-04] MEDS: XANAX PO PRN (07:33)
[2016-05-04 07:34] LABS: AGAP 11; BUN 7 mg/dL (8-22); CALCIUM 8.7 mg/dL (8.8-10.2); CHLORIDE 100 mmol/L (98-107); COSMO 283; POTASSIUM 4.8 mmol/L (3.5-5.1); SODIUM 142 mmol/L (136-145); TCO2 31 mmol/L (25-35)
[2016-05-04] MEDS: LASIX IV SCH (08:52)
[2016-05-04] MEDS: VITAMIN B-12 PO SCH (08:53)
[2016-05-04] MEDS: CORDARONE PO SCH ×2 (08:53→21:39)
[2016-05-04] MEDS: COREG PO SCH ×2 (08:53→21:38)
[2016-05-04] MEDS: SYNTHROID PO SCH (08:53)
[2016-05-04] MEDS: MYCOSTATIN SUSP PO SCH ×4 (08:59→21:40)
--- NOTE | 2016-05-04 10:34 | PROGRESS NOTE ---
DATE: 05/04/2016 Mr. Vela has had some generalized weakness and more prominent proximal leg weakness. This has been attributed to myasthenia gravis. He is generally much more weak with very poor stamina recently and that is attributed to his multiple medical problems. I remain optimistic that with management of his medical problems, his stamina will continue to improve. I hope that he will be able to be independent at home eventually. We have proven that he cannot tolerate higher pyridostigmine dose no matter how that is provided with shorter dose interval or larger individual dose. We might consider adding immunosuppressant medicine for chronic management of myasthenia but the effect of that drug would be slow and uncertain. Also, in light of his other problems, I am reluctant to add immunosuppressant medicine. We might consider re- evaluating the myasthenia diagnosis before considering immunosuppressant medicine. For today, I do not have any new suggestion. I would continue pyridostigmine 60 mg t.i.d. which he seems to be tolerating. Thanks for allowing me to follow Mr. Vlea. [facility]
[2016-05-04] MEDS: LEVAQUIN 750 MG/D5W 150 ML IV SCH (12:48)
--- NOTE | 2016-05-04 16:04 | PROGRESS NOTE ---
DATE: 05/04/2016 SUBJECTIVE: Today Mr. Vela refers to be generally weak and he wanted to know when his diarrhea is going to subside. Meanwhile Mr. Vela only had 2 bowel movements, according to him, today. OBJECTIVE: Vital Signs: Blood pressure is 110/55, pulse of 70, respirations 18 , temperature is 98.4 degrees. General: Mr. Vela is a 75-year-old male. He was in bed, not in any distress. HEENT: Mucosa is pink and moist. Anicteric. Acyanotic. Neck: Supple. Chest: Good air entry bilateral. There are a few dry crackles bilateral in the posterior lung field. The patient has a generator pocket on the left anterior chest wall for his pacemaker. Cardiovascular: Regular rate and rhythm. Abdomen: Soft, nontender. FORENSIC NURSE: Patient is alert and oriented x4. LABORATORY DATA: New labs for today. ProBNP is down to 2270 coming from 7000 before. INR went up to 5.90. ASSESSMENT/PLAN: 1. Supratherapeutic INR due to Coumadin. INR continues to be supratherapeutic so we have withheld the Coumadin. 2. Left acute pulmonary embolism, just was diagnosed while patient was here in the hospital. He was initially started on heparin and was bridged with Coumadin. However the INR has been supratherapeutic so we have him off Coumadin as well. 3. Acute respiratory distress due to pneumonia/PE/congestive heart failure. 4. Congestive heart failure with both diastolic and systolic dysfunctions, ejection fraction of 48%. The patient is being followed by Cardiology as well. 5. Dilated cardiomyopathy secondary to coronary artery disease. 6. Atrial fibrillation, currently rate controlled. 7. Multifocal pneumonia. Patient is on antibiotics. Today is day 6 on Levaquin and we plan to treat it for a total of 10 days. 8. Clostridium difficile diarrhea. The patient is currently on metronidazole. Today is day 9 and will plan to treat it for a total of 14 days. 9. Lower extremity weakness which has been attributed to myasthenia gravis, but I think it is multifactorial including multiple medical issues. 10. Altered mental status on presentation is resolved. 11. Recurrent urinary tract infection with neurogenic bladder. The patient's urinary tract infection was completely treated. A suprapubic catheter has been placed by Dr. Suárez. So Mr. Vela is a 75-year-old male who has been in the hospital for the past 17 days. He initially presented because of altered mental status, generalized weakness. He was found to have Escherichia coli and Klebsiella urinary tract infection. Patient was treated. Mentation got better and a suprapubic catheter was also placed because of neurogenic bladder. However even being on Xarelto he developed hemoptysis and a CTA was done which showed an acute left pulmonary emboli. The patient was initially started on heparin drip. A discussion was held with him about the new anticoagulant that he said he was on Eliquis before and could not afford. We therefore decided to put him on Coumadin. However his INR has been supratherapeutic and we have to stop that, hoping that by tomorrow it will be 2, and then we can start Coumadin on a very low dose and discharge him. DISPOSITION: Home with [facility], and that has already been arranged. [facility]
[2016-05-04] MEDS: LIPITOR PO SCH (21:38)
[2016-05-05] MEDS: XANAX PO PRN ×2 (00:59→02:13)
[2016-05-05] MEDS: FLAGYL PO SCH ×4 (00:59→21:19)
[2016-05-05] MEDS: DUONEB (A & A) INH PRN ×5 (02:40→23:08)
[2016-05-05] MEDS: PRILOSEC PO SCH (06:03)
[2016-05-05] MEDS: MESTINON PO SCH ×3 (06:03→21:19)
[2016-05-05 07:18] LABS: PROTIME 79.6 Seconds (9.2-11.7)
[2016-05-05 07:19] LABS: INR 7.33
[2016-05-05] MEDS: NORCO-10 PO PRN (07:28)
[2016-05-05] MEDS: LASIX IV SCH (09:01)
[2016-05-05] MEDS: CORDARONE PO SCH ×2 (09:01→21:20)
[2016-05-05] MEDS: VITAMIN B-12 PO SCH (09:01)
[2016-05-05] MEDS: SYNTHROID PO SCH (09:01)
[2016-05-05] MEDS: MYCOSTATIN SUSP PO SCH ×4 (09:02→21:21)
[2016-05-05] MEDS: COREG PO SCH ×2 (09:03→21:20)
[2016-05-05] MEDS: ZOFRAN IV PRN ×2 (12:37→23:45)
[2016-05-05] MEDS: LEVAQUIN 750 MG/D5W 150 ML IV SCH (14:18)
--- NOTE | 2016-05-05 16:36 | PROGRESS NOTE ---
DATE: 05/05/2016 SUBJECTIVE: This patient states that he is feeling generalized weakness and also he has been having diarrhea. He had 2 episodes during the night and 2 this morning. OBJECTIVE: Vital Signs: Temperature 98 degrees, pulse 70, respiratory rate 18, blood pressure 112/56, oxygen saturation 95 on 2 L of nasal cannula. HEENT: Head normocephalic. No trauma. PERRLA. Neck: Supple. Chest: Good air entry bilaterally. Crackles at the bases. He has a pacemaker at the level of the left anterior chest wall. Cardiovascular: RRR. Abdomen: Soft, nontender, nondistended. Extremities: No edema. No clubbing. Neurological: The patient is alert and oriented x3. He moves all 4 extremities. LABORATORY: PT 79.6, INR 7.3. ASSESSMENT AND PLAN: 1. Supratherapeutic INR due to Coumadin, INR continues to be supratherapeutic so we are not using any Coumadin at this moment. Will continue to monitor. 2. Left acute pulmonary embolism. This was diagnosed while this patient was hospitalized. Initially he was started on heparin and was bridged Coumadin but his INR has been supratherapeutic and we are holding the Coumadin at this moment. 3. Acute respiratory distress due to pneumonia/pulmonary embolism/congestive heart failure. Continue with the same management. He is not complaining of shortness of breath or any kind of respiratory distress at this moment. 4. Congestive heart failure, diastolic and systolic ejection fraction is around 48%. This patient has been followed by Cardiology as well. 5. Dilated cardiomyopathy secondary to coronary artery disease. Aware. Continue to monitor. 6. Atrial fibrillation currently rate controlled. 7. Multifocal pneumonia. Patient is on antibiotics. Today is day #7 of Levaquin and we are planning to treat this patient for a period of 10 days. 8. Clostridium difficile diarrhea. This patient is on metronidazole. Today is day #9 and we are planning to treat this patient for 2 weeks. 9. Lower extremity weakness. Apparently as per the patient this is secondary to myasthenia gravis but this is not the classical presentation. I feel that this is multifactorial including physical deconditioning. 10. Altered mental status resolved. 11. Recurrent urinary tract infection with neurogenic bladder. This patient's urinary tract infection has been treated. A suprapubic catheter has been placed by Dr. Suárez. 12. Disposition. This patient will be discharged home once he is ready with home health and physical therapy.
[2016-05-05] MEDS: AMBIEN PO PRN (21:20)
[2016-05-05] MEDS: LIPITOR PO SCH (21:21)
[2016-05-06] MEDS: XANAX PO PRN ×3 (01:28→17:48)
[2016-05-06] MEDS: NORCO-10 PO PRN ×3 (01:28→21:13)
[2016-05-06] MEDS: FLAGYL PO SCH ×4 (01:29→20:19)
[2016-05-06] MEDS: MESTINON PO SCH ×3 (05:41→20:19)
[2016-05-06] MEDS: PRILOSEC PO SCH (06:01)
[2016-05-06 07:04] LABS: MANUAL DIFF NEEDED? NO
[2016-05-06 07:10] LABS: BASO% 0.2 % (0.0-0.8); EOS# 0.37 X1000 (0.0-0.7); EOS% 5.8 % (0.0-10.0); HEMATOCRIT 36.9 % (42.0-52.0); HEMOGLOBIN 11.6 g/dL (14.0-18.0); LYMPH# 1.15 X1000 (1.2-3.4); LYMPH% 18.1 % (20.5-51.1); MCH 30.1 PG (27-31); MCHC 31.4 g/dL (33-37); MCV 95.8 FL (81-99); MONO% 12.6 % (1.7-9.3); MPV 9.8 FL (7.4-10.4); NEUT% 63.3 % (42.2-75.2); PLT 147 X1000 (130-400); RBC 3.85 XMIL (4.7-6.1)
[2016-05-06 07:43] LABS: AGAP 11; ALBUMIN 2.5 g/dL (3.5-5.0); ALKALINE PHOSPHATASE 66 U/L (32-122); BUN 9 mg/dL (8-22); CALCIUM 8.1 mg/dL (8.8-10.2); CHLORIDE 101 mmol/L (98-107); COSMO 282; GOT 20 U/L (10-34); GPT 8 U/L (10-44); POTASSIUM 3.5 mmol/L (3.5-5.1); SODIUM 142 mmol/L (136-145); TCO2 30 mmol/L (25-35); TOTAL BILIRUBIN 0.27 mg/dL (0.20-1.00); TOTAL PROTEIN 5.3 g/dL (6.3-8.3)
[2016-05-06 07:49] LABS: INR 8.4
[2016-05-06] MEDS ORDERED: VITAMIN K PO ONE ×2 (07:59)
[2016-05-06] MEDS: DUONEB (A & A) INH PRN ×2 (09:21→13:22)
[2016-05-06] MEDS: VITAMIN B-12 PO SCH (09:55)
[2016-05-06] MEDS: CORDARONE PO SCH ×2 (09:56→20:19)
[2016-05-06] MEDS: SYNTHROID PO SCH (09:57)
[2016-05-06] MEDS: COREG PO SCH ×2 (09:57→20:19)
[2016-05-06] MEDS: LASIX IV SCH (09:58)
[2016-05-06] MEDS: MYCOSTATIN SUSP PO SCH ×4 (10:06→20:21)
[2016-05-06] MEDS: LEVAQUIN 750 MG/D5W 150 ML IV SCH (12:21)
--- NOTE | 2016-05-06 16:04 | PROGRESS NOTE ---
DATE: 05/06/2016 SUBJECTIVE: This patient states that he is still feeling generalized weakness. He is still having diarrhea but is getting better. He does not have any specific complaints today. OBJECTIVE: Vital Signs: Temperature 97.4 degrees, pulse 69, respiratory rate 18, blood pressure 130/55, oxygen saturation 98% on 3 L of nasal cannula. HEENT: Head normocephalic. No trauma. PERRLA. Neck: Supple. No JVD. No masses. Central trachea. Chest: Good air entry. Bilateral crackles at the bases. He has a pacemaker at the level of the left anterior chest wall. Cardiovascular: RRR. Abdomen: Soft, nontender, nondistended. Extremities: No edema. No clubbing. No cyanosis. Neurological: The patient is alert and oriented x3. He moves all 4 extremities. He has generalized weakness. LABORATORY: WBC 6.3, hemoglobin 11.6, hematocrit 36.9, platelets 147,000, PT 91, INR 8.4. Sodium 142, potassium 3.5, chloride 101, bicarbonate 30, BUN 9, creatinine 0.8, glucose 96, calcium 8.1, AST 20, ALT 8, alkaline phosphatase 66. ASSESSMENT AND PLAN: 1. Supratherapeutic INR due to Coumadin, INR continues to be supratherapeutic so I will not give him a new dose of Coumadin at this moment. I will give him a one-time dose of vitamin K, 2.5 mg per oral. 2. Left acute pulmonary embolism. This was diagnosed while this patient was hospitalized. Initially he was started on heparin and was bridged to Coumadin but his INR has been supratherapeutic and we are holding the Coumadin at this moment and he is getting vitamin K. 3. Acute respiratory distress due to pneumonia/pulmonary embolism/congestive heart failure. Continue with the same management. He is not complaining of shortness of breath or any kind of respiratory distress at this moment. 4. Congestive heart failure, diastolic and systolic, the ejection fraction is around 48%. This has been followed by Cardiology as well. 5. Dilated cardiomyopathy secondary to coronary artery disease. Aware. Continue to monitor. 6. Atrial fibrillation, currently rate controlled. 7. Multifocal pneumonia. The patient is on antibiotics, today is #8 of Levaquin, and we are planning to treat this patient for a period of 10 days. 8. Clostridium difficile diarrhea. This patient is on metronidazole, today is day #10, and we are planning to treat this patient for 14 days. 9. Left lower extremity weakness. Apparently as per the patient, this is secondary to myasthenia gravis, but this is not the classical presentation. I feel that this is multifactorial, including physical deconditioning. 10. Altered mental status. Resolved. 11. Recurrent urinary tract infection with neurogenic bladder. This patient's urinary tract infection has been treated. A suprapubic catheter has been placed by Dr. Suárez. 12. Disposition. This patient will be discharged home once he is ready with home health and physical therapy, but we need to clarify this with the social service manager next Sunday, I am not quite sure if this patient can go to a rehab center.
[2016-05-06] MEDS: LIPITOR PO SCH (20:19)
[2016-05-07] MEDS: AMBIEN PO PRN (01:25)
[2016-05-07] MEDS: FLAGYL PO SCH ×4 (01:25→21:23)
[2016-05-07] MEDS: ZOFRAN IV PRN (01:49)
[2016-05-07 05:33] LABS: MANUAL DIFF NEEDED? NO
[2016-05-07 05:43] LABS: BASO% 0.5 % (0.0-0.8); EOS# 0.64 X1000 (0.0-0.7); EOS% 9.7 % (0.0-10.0); HEMATOCRIT 36.2 % (42.0-52.0); HEMOGLOBIN 11.4 g/dL (14.0-18.0); IMM GRAN# 0.02 X1000 (0.0-0.04); IMM GRAN% 0.3 % (0.0-0.5); LYMPH# 1.25 X1000 (1.2-3.4); LYMPH% 18.9 % (20.5-51.1); MCH 30.1 PG (27-31); MCHC 31.5 g/dL (33-37); MCV 95.5 FL (81-99); MONO# 0.69 X1000 (0.11-0.59); MONO% 10.4 % (1.7-9.3); MPV 10.4 FL (7.4-10.4); NEUT% 60.2 % (42.2-75.2); PLT 148 X1000 (130-400); RBC 3.79 XMIL (4.7-6.1)
[2016-05-07] MEDS: XANAX PO PRN ×3 (05:49→21:22)
[2016-05-07] MEDS: MESTINON PO SCH ×3 (05:49→21:23)
[2016-05-07 05:50] LABS: INR 3.54
[2016-05-07] MEDS: PRILOSEC PO SCH (05:50)
[2016-05-07 06:05] LABS: AGAP 10; BUN 8 mg/dL (8-22); CALCIUM 8.2 mg/dL (8.8-10.2); CHLORIDE 99 mmol/L (98-107); COSMO 277; POTASSIUM 3.5 mmol/L (3.5-5.1); SODIUM 140 mmol/L (136-145); TCO2 31 mmol/L (25-35)
[2016-05-07] MEDS: DUONEB (A & A) INH PRN ×2 (07:57→21:07)
[2016-05-07] MEDS: COREG PO SCH ×2 (09:18→21:22)
[2016-05-07] MEDS: SYNTHROID PO SCH (09:18)
[2016-05-07] MEDS: CORDARONE PO SCH ×2 (09:18→21:23)
[2016-05-07] MEDS: NORCO-10 PO PRN ×2 (09:19→19:45)
[2016-05-07] MEDS: VITAMIN B-12 PO SCH (09:19)
[2016-05-07] MEDS: LASIX IV SCH (09:19)
[2016-05-07] MEDS: MYCOSTATIN SUSP PO SCH ×4 (09:20→21:24)
[2016-05-07] MEDS: LEVAQUIN 750 MG/D5W 150 ML IV SCH (14:13)
--- NOTE | 2016-05-07 18:08 | PROGRESS NOTE ---
DATE: 05/07/2016 SUBJECTIVE: This patient states that he is still feeling generalized weakness. The diarrhea is getting better. He does not have any specific complaints today. He has insomnia and he has been getting Ambien 5 mg at night. Usually he states that at home he takes 10, so I increased the dose. OBJECTIVE: Vital Signs: Temperature 98.2 degrees, pulse 80, respiratory rate 20, blood pressure 119/73, oxygen saturation 100% on 3 L of nasal cannula. HEENT: Head normocephalic. No trauma. PERRLA. Neck: Supple. No JVD. No masses. Central trachea. Chest: Good air entry. Bilateral crackles at the bases. He has a pacemaker at the level of the left anterior chest wall. Cardiovascular: RRR. Abdomen: Soft, nontender, nondistended. Extremities: No edema. No clubbing. No cyanosis. Neurological: Patient is alert and oriented x3. He moves all 4 extremities. He has generalized weakness. LABORATORY: WBC 6.6, hemoglobin 11.4, hematocrit 36.2, platelets 148,000. PT 38, INR 3.5. Sodium 140, potassium 3.5, chloride 99, bicarbonate 31, BUN 8, creatinine 0.8, glucose 82, calcium 8.2. ASSESSMENT AND PLAN: 1. Supratherapeutic INR due to Coumadin. INR is much better today; it is 3.54. I will hold 1 more day the Coumadin. Apparently this patient is sensitive to this medication. I will probably start with 1 mg of warfarin tomorrow and re-evaluate. 2. Left acute pulmonary embolism. This was diagnosed while this patient was hospitalized. Initially he was started on heparin and was bridged to Coumadin but INR has been supratherapeutic and we have been holding the Coumadin. Yesterday he received a dose of vitamin K. Today the INR is better. 3. Acute respiratory distress due to pneumonia/pulmonary embolism/congestive heart failure. Continue with the same management. He is not complaining of shortness of breath or any kind of respiratory distress at this moment. 4. Congestive heart failure, diastolic and systolic. The ejection fraction is around 48%. This has been followed by cardiology as well. For now, we will continue with the same management. 5. Dilated cardiomyopathy secondary to coronary artery disease. Aware. Continue with the same management. 6. Atrial fibrillation. Currently rate controlled. 7. Multifocal pneumonia. This patient is on antibiotics. Today is day #9 of Levaquin and we are planning to treat this patient for a period of 10 days. So tomorrow after the last dose, this can be discontinued. 8. Clostridium difficile diarrhea. This patient is on metronidazole. Today is day #11 and we are planning to treat this patient for 14 days. 9. Left lower extremity weakness. Apparently, as per the patient, this is secondary to myasthenia gravis but this is not a classical presentation. Maybe this is also multifactorial including physical deconditioning and respiratory problems. 10. Altered mental status. Resolved. 11. Recurrently urinary tract infection with neurogenic bladder. This patient's urinary tract infection has been treated. Also a suprapubic catheter has been placed by Dr. Suárez. 12. Disposition. We need to clarify with the clinical social work therapist if this patient can go to a rehab center. Otherwise, this patient will be discharged home but he will need physical therapy. It looks like he is sensitive to warfarin, so I will recommend to start with a really low dose of warfarin like 1 mg and check the INR afterwards. He is taking a lot of medications at this moment, so probably there is some interaction between them.
[2016-05-07] MEDS: LIPITOR PO SCH (21:22)
[2016-05-08] MEDS: AMBIEN PO SCH ×3 (00:50→22:01)
[2016-05-08] MEDS: FLAGYL PO SCH ×4 (03:32→20:11)
[2016-05-08] MEDS: MESTINON PO SCH ×3 (05:53→20:10)
[2016-05-08] MEDS: PRILOSEC PO SCH (06:00)
[2016-05-08] MEDS: XANAX PO PRN ×2 (06:33→15:54)
[2016-05-08 06:49] LABS: MANUAL DIFF NEEDED? NO
[2016-05-08 06:56] LABS: BASO% 0.3 % (0.0-0.8); EOS# 0.61 X1000 (0.0-0.7); EOS% 9.8 % (0.0-10.0); HEMATOCRIT 37.6 % (42.0-52.0); LYMPH# 1.33 X1000 (1.2-3.4); LYMPH% 21.5 % (20.5-51.1); MCH 30.4 PG (27-31); MCHC 31.9 g/dL (33-37); MCV 95.2 FL (81-99); MONO# 0.73 X1000 (0.11-0.59); MONO% 11.8 % (1.7-9.3); MPV 9.8 FL (7.4-10.4); NEUT% 56.6 % (42.2-75.2); PLT 138 X1000 (130-400); RBC 3.95 XMIL (4.7-6.1)
[2016-05-08 07:01] LABS: INR 3.23; PROTIME 34.7 Seconds (9.2-11.7)
[2016-05-08 07:23] LABS: AGAP 10; ALBUMIN 2.6 g/dL (3.5-5.0); ALKALINE PHOSPHATASE 64 U/L (32-122); BUN 9 mg/dL (8-22); CALCIUM 8.4 mg/dL (8.8-10.2); CHLORIDE 101 mmol/L (98-107); COSMO 279; GOT 22 U/L (10-34); GPT 8 U/L (10-44); POTASSIUM 3.8 mmol/L (3.5-5.1); SODIUM 141 mmol/L (136-145); TCO2 30 mmol/L (25-35); TOTAL BILIRUBIN 0.35 mg/dL (0.20-1.00); TOTAL PROTEIN 5.4 g/dL (6.3-8.3)
[2016-05-08] MEDS: DUONEB (A & A) INH PRN ×2 (07:31→21:52)
[2016-05-08] MEDS: SYNTHROID PO SCH (08:23)
[2016-05-08] MEDS: COREG PO SCH ×2 (08:23→20:10)
[2016-05-08] MEDS: CORDARONE PO SCH ×2 (08:24→20:10)
[2016-05-08] MEDS: MYCOSTATIN SUSP PO SCH ×4 (08:24→22:01)
[2016-05-08] MEDS: VITAMIN B-12 PO SCH (08:24)
[2016-05-08] MEDS: LASIX IV SCH (08:24)
[2016-05-08] MEDS: ROCEPHIN 1 GM/NS 50 ML IV SCH (13:46)
--- NOTE | 2016-05-08 15:44 | PROGRESS NOTE ---
DATE: 05/08/2016 SUBJECTIVE: The patient states that he feels very weak. He reports that he had 2 loose stools overnight. He states that he thinks the Ensure gave some mild diarrhea yesterday. OBJECTIVE: Vital Signs: Temperature 97 degrees, blood pressure 99/44, heart rate 70, respirations 18, O2 saturation is 95% on 2 L nasal cannula. General: This is a chronically ill- appearing, elderly male, lying in bed, in no acute distress. Head: Normocephalic, atraumatic. Heart: S1, S2. Normal. Regular rate and rhythm. Lungs: Clear to auscultation bilaterally. Abdomen: Positive bowel sounds. Soft, nontender, nondistended. Extremities: No edema. No cyanosis. No calf tenderness. Neurologic: The patient is awake and alert. LABS: White blood cell count 6.2, hemoglobin 12, hematocrit 37, platelets 138,000. INR 3.2. Sodium 141, potassium 3.8, chloride 101, CO2 30, BUN 9, creatinine 0.8, glucose 86, albumin 2.6. ASSESSMENT AND PLAN: 1. Left acute pulmonary embolism. Continue on warfarin. The patient's INR is therapeutic. 2. Pneumonia. We will switch the patient to Rocephin due to the interaction with Levaquin and Coumadin. 3. Acute on chronic diastolic congestive heart failure exacerbation. Stable. 4. Atrial fibrillation. The patient is currently rate controlled on amiodarone. 5. Clostridium difficile colitis. Continue on Flagyl. This is day 12 of 14. 6. Debility. We will continue with physical therapy. Case management is working on getting the patient placed at a rehab facility.
[2016-05-08] MEDS: LIPITOR PO SCH (20:10)
[2016-05-08] MEDS ORDERED: COUMADIN PO SCH (21:00)
[2016-05-09] MEDS: FLAGYL PO SCH ×5 (02:02→22:56)
[2016-05-09] MEDS: XANAX PO PRN ×3 (03:22→22:56)
[2016-05-09] MEDS: DUONEB (A & A) INH PRN ×4 (04:38→22:45)
[2016-05-09] MEDS: MESTINON PO SCH ×3 (05:26→21:43)
[2016-05-09] MEDS: PRILOSEC PO SCH (06:10)
[2016-05-09 06:50] LABS: HEMATOCRIT 37.9 % (42.0-52.0); HEMOGLOBIN 11.8 g/dL (14.0-18.0); MCH 30.4 PG (27-31); MCHC 31.1 g/dL (33-37); MCV 97.7 FL (81-99); RBC 3.88 XMIL (4.7-6.1)
[2016-05-09 06:58] LABS: INR 3.72; PROTIME 42.5 Seconds (9.2-11.7)
[2016-05-09 07:00] LABS: AGAP 9; BUN 10 mg/dL (8-22); CALCIUM 8.4 mg/dL (8.8-10.2); CHLORIDE 104 mmol/L (98-107); COSMO 286; POTASSIUM 4.1 mmol/L (3.5-5.1); SODIUM 144 mmol/L (136-145); TCO2 31 mmol/L (25-35)
[2016-05-09] MEDS: LASIX IV SCH (08:13)
[2016-05-09] MEDS: SYNTHROID PO SCH (08:13)
[2016-05-09] MEDS: COREG PO SCH ×2 (08:13→21:42)
[2016-05-09] MEDS: VITAMIN B-12 PO SCH (08:13)
[2016-05-09] MEDS: CORDARONE PO SCH ×2 (08:13→21:42)
[2016-05-09] MEDS: MYCOSTATIN SUSP PO SCH ×4 (08:14→21:43)
[2016-05-09] MEDS: ROCEPHIN 1 GM/NS 50 ML IV SCH (12:58)
[2016-05-09] MEDS: NORCO-10 PO PRN (13:44)
--- NOTE | 2016-05-09 14:49 | Diag Imaging Result Document ---
PROCEDURE NAME: CT THORAX W/O CONTRAST - 05/09/2016 CT OF THE CHEST WITHOUT CONTRAST: FINDINGS: There are a few scattered calcified granulomata present. There are numerous patchy, poorly defined, and nodular noncalcified opacities bilaterally. The opacities are much smaller and less confluent than on the previous examination of 04/27/2016 particularly with regard to the right upper lobe. Some of the more nodular appearing opacities were not apparently present at the time of the previous study, most notably that on image 60 in the right middle lobe posterolaterally. The possibility of septic emboli cannot be excluded. Generally, however, the appearance of the pulmonary parenchyma has improved since the previous study. Given the lack of IV contrast on the current examination, the status of the emboli seen in the pulmonary arteries on the previous study cannot be evaluated. Extensive coronary calcification is again noted with left ventricular enlargement and left atrial enlargement. The pleural fluid collections which were present bilaterally but particularly on the right have resolved. There are small stones in the gallbladder. There is less anasarca than on the previous examination. The liver appears somewhat hyperdense. This could be a be due to metal deposition such as hemochromatosis or Marquis's disease or medications such as amiodarone. IMPRESSION: Improved pulmonary edema and/or pneumonia with resolution of pleural effusions and anasarca.
--- NOTE | 2016-05-09 16:04 | PROGRESS NOTE ---
DATE: 05/09/2016 SUBJECTIVE: The patient has no complaints today. No acute events noted overnight. OBJECTIVE: Vital Signs: Temperature 98 degrees, blood pressure 99/52, heart rate 69, respirations 18, O2 saturations 98% on room air. General: This is a chronically ill-appearing, elderly male, lying in bed, in no acute distress. Head: Normocephalic, atraumatic. Heart: S1, S2. Normal. Regular rate and rhythm. Lungs: Clear to auscultation bilaterally. Abdomen: Positive bowel sounds. Soft, nontender, nondistended. Extremities: No edema. No cyanosis. Neurologic: The patient is alert and oriented x3. LABS: White blood cell count 6.5, hemoglobin 11, hematocrit 37, platelets 151,000, INR 3.7. Sodium 144, potassium 4.1, chloride 104, CO2 31, BUN 10, creatinine 1, glucose 105. ASSESSMENT AND PLAN: 1. Acute pulmonary embolism. The patient's INR is 3.7 today. We will continue to adjust the patient's Coumadin dosage. 2. Pneumonia with pulmonary edema. Improved. Continue on Rocephin. 3. Acute on chronic diastolic congestive heart failure exacerbation. Improved. 4. Atrial fibrillation. The patient is currently rate controlled. Continue on amiodarone. 5. Clostridium difficile colitis. This is day 13 of 14. Continue on Flagyl. 6. Generalized weakness. Continued physical therapy. The patient has used up all of his rehab days so he is not a candidate for rehab placement unless he is willing to pay for the cost out of pocket. The patient states that he cannot afford to do that. Also the patient's medical status has improved so he not a candidate for LTAC. We will continue with physical therapy until the patient is strong enough to be discharged home.
[2016-05-09] MEDS: LIPITOR PO SCH (21:42)
[2016-05-09] MEDS: AMBIEN PO SCH (22:56)
[2016-05-10] MEDS: NORCO-10 PO PRN ×2 (02:49→12:00)
[2016-05-10] MEDS: DUONEB (A & A) INH PRN ×2 (03:30→19:55)
[2016-05-10] MEDS: XANAX PO PRN ×2 (05:38→15:03)
[2016-05-10] MEDS: FLAGYL PO SCH ×2 (05:38→12:01)
[2016-05-10] MEDS: MESTINON PO SCH ×3 (05:38→21:41)
[2016-05-10] MEDS: PRILOSEC PO SCH (06:18)
[2016-05-10 07:21] LABS: AGAP 10; BUN 8 mg/dL (8-22); CALCIUM 8.1 mg/dL (8.8-10.2); CHLORIDE 100 mmol/L (98-107); COSMO 277; POTASSIUM 3.1 mmol/L (3.5-5.1); SODIUM 140 mmol/L (136-145); TCO2 30 mmol/L (25-35)
[2016-05-10] MEDS ORDERED: KLOR-CON PO ONE (08:51)
[2016-05-10] MEDS: COREG PO SCH ×2 (09:38→21:40)
[2016-05-10] MEDS: LASIX IV SCH (09:38)
[2016-05-10] MEDS: SYNTHROID PO SCH (09:38)
[2016-05-10] MEDS: MYCOSTATIN SUSP PO SCH ×5 (09:39→21:09)
[2016-05-10] MEDS: CORDARONE PO SCH ×2 (09:39→21:41)
[2016-05-10] MEDS: VITAMIN B-12 PO SCH (09:45)
[2016-05-10] MEDS: ROCEPHIN 1 GM/NS 50 ML IV SCH (11:59)
--- NOTE | 2016-05-10 13:13 | PROGRESS NOTE ---
DATE: 05/10/2016 SUBJECTIVE: The patient states that he feels very weak and reports that he is still having liquid stools. He states that he has had four since yesterday. OBJECTIVE: Vital Signs: Temperature 97.9 degrees, blood pressure 110/48, heart rate 73, respirations 18, O2 saturations 100% on 2 L nasal cannula. General: This is an elderly male, lying in bed in no acute distress. Head: Normocephalic, atraumatic. Heart: S1, S2. Normal. Regular rate and rhythm. Lungs: Clear to auscultation bilaterally. Abdomen: Positive bowel sounds. Soft, nontender, nondistended. Extremities: No edema. No cyanosis. Neurologic: The patient is alert and oriented x3. LABS: Sodium 140, potassium 3.1, chloride 100, CO2 30, BUN 8, creatinine 0.9, glucose 86. ASSESSMENT AND PLAN: 1. Acute pulmonary embolism. Continue on Coumadin. 2. Clostridium difficile colitis. We will add vancomycin and Lactobacillus. 3. Atrial fibrillation. The patient is currently rate controlled. Continue on amiodarone. 4. Generalized weakness. The patient has agreed to have long-term care placement. We will notify Speech Language Specialist. 5. Pneumonia with pulmonary edema. Improved. 6. Acute on chronic diastolic congestive heart failure exacerbation. Improved. 7. Continue with physical therapy.
[2016-05-10 14:29] LABS: INR 5.29; PROTIME 61.8 Seconds (9.2-11.7)
[2016-05-10] MEDS: VANCOCIN PO SCH ×2 (17:49→21:41)
[2016-05-10] MEDS: MEGACE LIQUID PO SCH (17:49)
[2016-05-10] MEDS: CULTURELLE PO SCH (21:40)
[2016-05-10] MEDS: LIPITOR PO SCH (21:41)
[2016-05-10] MEDS: AMBIEN PO SCH (21:41)
[2016-05-11] MEDS: DUONEB (A & A) INH PRN ×3 (01:45→20:00)
[2016-05-11] MEDS: VANCOCIN PO SCH ×4 (03:09→21:32)
[2016-05-11] MEDS: XANAX PO PRN ×3 (03:09→21:33)
[2016-05-11] MEDS: MESTINON PO SCH ×3 (06:10→21:32)
[2016-05-11] MEDS: PRILOSEC PO SCH (06:11)
[2016-05-11 07:12] LABS: MANUAL DIFF NEEDED? NO
[2016-05-11 07:16] LABS: BASO% 0.5 % (0.0-0.8); EOS# 0.72 X1000 (0.0-0.7); EOS% 11.8 % (0.0-10.0); HEMATOCRIT 38.7 % (42.0-52.0); HEMOGLOBIN 12.3 g/dL (14.0-18.0); MCH 30.2 PG (27-31); MCHC 31.8 g/dL (33-37); MCV 95.1 FL (81-99); MONO# 0.72 X1000 (0.11-0.59); MONO% 11.8 % (1.7-9.3); NEUT% 52.9 % (42.2-75.2); PLT 177 X1000 (130-400); RBC 4.07 XMIL (4.7-6.1)
[2016-05-11 07:25] LABS: INR 4.86; PROTIME 56.5 Seconds (9.2-11.7)
[2016-05-11 07:48] LABS: AGAP 10; ALBUMIN 2.7 g/dL (3.5-5.0); ALKALINE PHOSPHATASE 62 U/L (32-122); BUN 8 mg/dL (8-22); CALCIUM 8.2 mg/dL (8.8-10.2); CHLORIDE 103 mmol/L (98-107); COSMO 279; GOT 23 U/L (10-34); GPT 9 U/L (10-44); POTASSIUM 3.9 mmol/L (3.5-5.1); SODIUM 141 mmol/L (136-145); TCO2 28 mmol/L (25-35); TOTAL BILIRUBIN 0.27 mg/dL (0.20-1.00); TOTAL PROTEIN 5.6 g/dL (6.3-8.3)
[2016-05-11] MEDS: MEGACE LIQUID PO SCH (09:05)
[2016-05-11] MEDS: CULTURELLE PO SCH ×2 (09:06→21:32)
[2016-05-11] MEDS: VITAMIN B-12 PO SCH (09:06)
[2016-05-11] MEDS: CORDARONE PO SCH ×2 (09:06→21:32)
[2016-05-11] MEDS: COREG PO SCH ×2 (09:06→21:32)
[2016-05-11] MEDS: SYNTHROID PO SCH (09:07)
[2016-05-11] MEDS: MYCOSTATIN SUSP PO SCH ×4 (09:09→21:33)
--- NOTE | 2016-05-11 10:14 | CONSULTATION ---
DATE OF CONSULTATION: 05/11/2016 CHIEF COMPLAINT: Pulmonary embolus developed while on Xarelto therapy. HISTORY OF PRESENT ILLNESS: Mr. Vlea is a 75-year-old, male with a medical history of neurogenic bladder, recurrent urinary tract infections, ischemic cardiomyopathy, hypertension, hyperlipidemia, and recent right hip fracture requiring right hip replacement. Since the patient's right hip fracture and right hip replacement, he has been through rehabilitation successfully. He was treated for urinary tract infection associated with a catheter and recently had a suprapubic catheter. During his hospital stay the patient was ambulatory but began to feel profound weakness and began having hemoptysis. The patient was evaluated for pulmonary embolus with CT angiogram, which was positive for pulmonary embolus in the left lung. The patient was begun on heparin therapy. We are consulted for anticoagulation. PAST MEDICAL HISTORY: 1. Ischemic cardiomyopathy. 2. Atrial fibrillation. 3. Neurogenic bladder. 4. Obesity, status post bariatric surgery. 5. Hypertension. 6. Hyperlipidemia. 7. Suspected myasthenia gravis. PAST SURGICAL HISTORY: 1. Right hip replacement. 2. Left hip replacement. 3. Gastric bypass. 4. Tonsillectomy. 5. Transurethral resection of prostate with suprapubic catheter placement. MEDICATIONS ON ADMISSION: Have been reviewed. ALLERGIES: No known drug allergies. REVIEW OF SYSTEMS: A 14 point review of systems was obtained and is negative, except as mentioned in HPI. PHYSICAL EXAMINATION: General Appearance: Mr. Vela is a pleasant 75-year-old male, lying supine in bed, in no immediate distress. Vital Signs: Temperature 97.9 degrees, blood pressure 99/44, heart rate 70, respirations 18, O2 saturation 95% on 2 L nasal cannula O2. HEENT: Normocephalic, atraumatic. Mucous membranes are pink and moist. Sclerae is anicteric. Extraocular movements intact. Neck: Supple. Lungs: Clear to auscultation bilaterally with some decreased breath sounds on the left. Cardiovascular: S1-S2 is heard without murmur, rub, or gallop. Abdomen: Soft, nondistended, nontender. Bowel sounds are positive in all quadrants. No rebound or guarding noted. Extremities: Without clubbing, cyanosis, or edema. Dermatologic: No rashes, bruises, or lesions. Neurologic: The patient is awake, alert, and oriented x3. He has no focal motor deficits. LABORATORY DATA: Hemoglobin 12.0, hematocrit 37.6, white blood cell count 6.20, platelets 138,000. INR 3.23, sodium 141, potassium 3.8, chloride 101, CO2 is 30, BUN 9, creatinine 0.8, glucose 86. IMAGING STUDIES: Pulmonary arteriogram is positive for pulmonary embolus on the left with pleural effusion with edema and questionable pneumonia. Chest x-ray reveals stable effusion and right lung infiltrate. ASSESSMENT AND PLAN: 1. Pulmonary embolism while on Xarelto. The patient does have an elevated INR of 3.23. He has no history of Coumadin treatment in the past. We agree with Coumadin as ordered, with a goal of 2.5-3.5. The patient is currently therapeutic. We will obtain a hypercoagulable workup to assess the patient for any other embolus risk. 2. Atrial fibrillation, on amiodarone. Rate controlled at this time. 3. Neurogenic bladder, which is stable. 4. Obesity, status post bariatric surgery. Stable at this time. 5. Suspected myasthenia gravis. The patient is currently on Mestinon and is symptom-free. 6. We will follow along with you and make further recommendations pending outcome. The above reflects the history, exam, assessment, and plan of Dr. Alexis. Dictated by RADHA Lynn for Abdi Alexis MD
[2016-05-11] MEDS: NORCO-10 PO PRN (10:24)
[2016-05-11] MEDS: ROCEPHIN 1 GM/NS 50 ML IV SCH (12:46)
--- NOTE | 2016-05-11 19:32 | PROGRESS NOTE ---
DATE: 05/11/2016 SUBJECTIVE: The patient continues to complain of liquid stools. He denies having any abdominal pain or nausea. He says his appetite is still poor. OBJECTIVE: Vital Signs: Temperature 97.3 degrees, blood pressure 107/49, heart rate 70, respirations 22, O2 saturations 99% on 4 L nasal cannula. General: This is a chronically ill- appearing, elderly male, lying in bed, in no acute distress. Head: Normocephalic, atraumatic. Heart: S1, S2. Normal. Regular rate and rhythm. Lungs: Clear to auscultation bilaterally. No wheezes, no rales. No rhonchi. Abdomen: Positive bowel sounds. Soft, nontender, nondistended. Extremities: No edema. No cyanosis. Neurologic: The patient is alert and oriented x3. LABS: White blood cell count 6.1, hemoglobin 12, hematocrit 38, platelets 177,000. Sodium 141, potassium 3.9, chloride 103, CO2 28, BUN 8, creatinine 0.9, glucose 85. ASSESSMENT AND PLAN: 1. C. difficile colitis. Continue on vancomycin and this will be day 2. Continue on lactobacillus. 2. Acute pulmonary embolism. Continue to monitor this closely. The patient's INR is supratherapeutic so we will continue to hold the Coumadin at this time. 3. Atrial fibrillation. The patient is currently rate controlled. Continue on amiodarone. 4. Pneumonia with pulmonary edema. This appears to have improved. Continue on ceftriaxone. 5. Hypothyroidism. Continue on Synthroid. 6. Severe protein calorie malnutrition. Continue with supplements plus Megace. 7. Severe debility and generalized weakness. Continue with physical therapy. 8. Disposition. Case management is working on placement for the patient.
[2016-05-11] MEDS: AMBIEN PO SCH ×2 (21:32→21:34)
[2016-05-11] MEDS: LIPITOR PO SCH (21:32)
[2016-05-12] MEDS: VANCOCIN PO SCH ×4 (02:32→21:17)
[2016-05-12] MEDS: XANAX PO PRN ×3 (05:11→21:17)
[2016-05-12] MEDS: MESTINON PO SCH ×3 (05:11→21:17)
[2016-05-12] MEDS: PRILOSEC PO SCH (06:27)
[2016-05-12 06:52] LABS: MANUAL DIFF NEEDED? NO
[2016-05-12 06:59] LABS: BASO% 0.7 % (0.0-0.8); EOS# 0.57 X1000 (0.0-0.7); EOS% 10.2 % (0.0-10.0); HEMATOCRIT 39.1 % (42.0-52.0); HEMOGLOBIN 12.4 g/dL (14.0-18.0); LYMPH% 30.4 % (20.5-51.1); MCH 29.9 PG (27-31); MCHC 31.7 g/dL (33-37); MCV 94.2 FL (81-99); MONO# 0.68 X1000 (0.11-0.59); MONO% 12.1 % (1.7-9.3); MPV 10.1 FL (7.4-10.4); NEUT% 46.6 % (42.2-75.2); PLT 175 X1000 (130-400); RBC 4.15 XMIL (4.7-6.1)
[2016-05-12 07:02] LABS: INR 4.43; PROTIME 51.2 Seconds (9.2-11.7)
[2016-05-12 07:18] LABS: AGAP 10; BUN 7 mg/dL (8-22); CALCIUM 8.3 mg/dL (8.8-10.2); CHLORIDE 103 mmol/L (98-107); COSMO 278; POTASSIUM 4.3 mmol/L (3.5-5.1); SODIUM 141 mmol/L (136-145); TCO2 28 mmol/L (25-35)
[2016-05-12] MEDS: SYNTHROID PO SCH (08:04)
[2016-05-12] MEDS: VITAMIN B-12 PO SCH (08:05)
[2016-05-12] MEDS: CORDARONE PO SCH ×2 (08:05→21:17)
[2016-05-12] MEDS: COREG PO SCH ×2 (08:05→21:17)
[2016-05-12] MEDS: CULTURELLE PO SCH ×2 (08:05→21:17)
[2016-05-12] MEDS: MEGACE LIQUID PO SCH (08:06)
[2016-05-12] MEDS: MYCOSTATIN SUSP PO SCH ×4 (08:08→21:18)
[2016-05-12] MEDS: NORCO-10 PO PRN (10:33)
[2016-05-12] MEDS: ROCEPHIN 1 GM/NS 50 ML IV SCH (13:10)
[2016-05-12] MEDS: DUONEB (A & A) INH PRN ×2 (15:23→22:59)
--- NOTE | 2016-05-12 17:39 | PROGRESS NOTE ---
DATE: 05/12/2016 SUBJECTIVE: No acute events noted overnight. The patient is resting comfortably in bed. OBJECTIVE: Vital Signs: Temperature 97.8 degrees, blood pressure 116/46, heart rate 70, respirations 20, O2 saturations 100% on 3 L nasal cannula. General: This is an elderly male, lying in bed, in no acute distress. Head: Normocephalic, atraumatic. Heart: S1, S2. Normal. Regular rate and rhythm. Lungs: Clear to auscultation bilaterally. No wheezes , no rales. No rhonchi. Abdomen: Positive bowel sounds. Soft, nontender, nondistended. Extremities: No edema. No cyanosis. No calf tenderness. Neurologic: The patient is alert and oriented x3.. LABS: White blood cell count 5.6, hemoglobin 12, hematocrit 39, platelets 175, 000. Sodium 141, INR 4.4, potassium 4.3, BUN 7, creatinine 0.8, glucose 82. ASSESSMENT AND PLAN: 1. Clostridium difficile colitis. The patient's toxin was negative and his antigen was positive. He completed treatment with Flagyl. He continues to have loose stools. Will repeat the c.diff toxin and further stool studies to include WBC and lactoferrin. Will also order a CT abd/pelvis and consult GI. 2. Acute pulmonary embolism. The patient's INR is 4. We will continue to hold the Coumadin at this time. 3. Pneumonia with pulmonary edema. Improved. Continue on ceftriaxone. 4. Hypothyroidism. Continue on Synthroid. 5. Severe protein calorie malnutrition. Continue on Megace plus dietary supplements. 6. Severe debility and generalized weakness. Continue with physical therapy. 7. Disposition. Case Management is working on placement for the patient. [facility]
[2016-05-12] MEDS: LIPITOR PO SCH (21:17)
[2016-05-13] MEDS: VANCOCIN PO SCH (01:00)
[2016-05-13] MEDS: AMBIEN PO SCH (01:00)
[2016-05-13] MEDS: DUONEB (A & A) INH PRN ×2 (03:11→21:45)
[2016-05-13] MEDS: MESTINON PO SCH ×3 (05:51→22:31)
[2016-05-13] MEDS: PRILOSEC PO SCH (05:52)
[2016-05-13 06:51] LABS: MANUAL DIFF NEEDED? NO
[2016-05-13 06:57] LABS: BASO% 0.5 % (0.0-0.8); EOS# 0.67 X1000 (0.0-0.7); EOS% 11.2 % (0.0-10.0); HEMATOCRIT 38.5 % (42.0-52.0); HEMOGLOBIN 12.5 g/dL (14.0-18.0); LYMPH% 30.1 % (20.5-51.1); MCH 30.7 PG (27-31); MCHC 32.5 g/dL (33-37); MCV 94.6 FL (81-99); MPV 9.8 FL (7.4-10.4); NEUT% 48.2 % (42.2-75.2); PLT 182 X1000 (130-400); RBC 4.07 XMIL (4.7-6.1)
[2016-05-13 07:13] LABS: INR 4.3; PROTIME 49.5 Seconds (9.2-11.7)
[2016-05-13 07:40] LABS: AGAP 13; BUN 9 mg/dL (8-22); CALCIUM 8.6 mg/dL (8.8-10.2); CHLORIDE 107 mmol/L (98-107); COSMO 289; SODIUM 146 mmol/L (136-145); TCO2 26 mmol/L (25-35)
[2016-05-13] MEDS: NORCO-10 PO PRN ×2 (08:23→17:04)
[2016-05-13] MEDS: CULTURELLE PO SCH ×2 (08:24→22:29)
[2016-05-13] MEDS: SYNTHROID PO SCH (08:24)
[2016-05-13] MEDS: VITAMIN B-12 PO SCH (08:24)
[2016-05-13] MEDS: CORDARONE PO SCH ×2 (08:24→22:31)
[2016-05-13] MEDS: COREG PO SCH ×2 (08:24→22:31)
[2016-05-13] MEDS: MEGACE LIQUID PO SCH (08:25)
[2016-05-13] MEDS: MYCOSTATIN SUSP PO SCH ×4 (08:25→22:32)
--- NOTE | 2016-05-13 09:45 | Diag Imaging Result Document ---
PROCEDURE NAME: ABDOMEN/PELVIS W/O CONTRAST - 05/13/2016 CT ABDOMEN AND PELVIS: A CT dose reduction protocol was used. COMPARISON: 05/09/2016. FINDINGS: There is continued improvement in the hazy interstitial opacities in the lung bases, compatible with edema. No significant pleural effusion. Heart size is borderline enlarged. There is a small hiatal hernia containing the majority of the gastric pouch. There are gastric bypass changes. The excluded portion of the stomach is not distended. No bowel obstruction or inflammation. There are some mildly enlarged mesenteric lymph nodes, nonspecific. There is moderate diverticulosis of the sigmoid colon. Rectum is normal. There is a suprapubic catheter in the urinary bladder, which is collapsed. Prostate is grossly normal. There is laxity of the anterior abdominal wall. There are nonobstructing left renal stones measuring up to 6 mm. There is a right hip prosthesis in good position. Advanced degenerative changes of the thoracolumbar spine. No acute bony lesions. IMPRESSION: 1. Improving pulmonary edema. 2. Nonspecific mesenteric adenopathy suggesting mesenteric adenitis. 3. Nonobstructing left renal stones. MTDD
--- NOTE | 2016-05-13 10:53 | Diag Imaging Result Document ---
PROCEDURE NAME: CHEST-PORTABLE - 05/13/2016 PORTABLE CHEST X-RAY: COMPARISON: 05/03/2016. FINDINGS: Stable pacemaker and cardiomegaly. Stable significant retrocardiac consolidation/opacification. The right lung now appears clear. IMPRESSION: Significant improvement in diffuse infiltrate throughout the right lung.
[2016-05-13] MEDS: ROCEPHIN 1 GM/NS 50 ML IV SCH (14:11)
[2016-05-13] MEDS: XANAX PO PRN (14:11)
--- NOTE | 2016-05-13 16:55 | PROGRESS NOTE ---
DATE: 05/13/2016 SUBJECTIVE: The patient is resting comfortably in bed. He states that he feels a lot better today. His stool is starting to firm up. OBJECTIVE: Vital Signs: Temperature 98 degrees, blood pressure 126/58, heart rate 69, respirations 18, O2 saturations 98% on 2 L nasal cannula. General: This is an elderly male lying in bed in no acute distress. Head: Normocephalic. Heart: S1, S2. Normal. Lungs: Clear to auscultation bilaterally. No wheezes, no rales. No rhonchi. Abdomen: Positive bowel sounds. Soft, nontender, nondistended. Extremity: No edema. No cyanosis. No calf tenderness. Neuro: The patient is alert oriented x3. LABS: White blood cell count 5.9, hemoglobin 12, hematocrit 38, INR 4.3. Sodium 146, potassium 4, chloride 107 CO2 26, BUN 9, creatinine 0.9 glucose 89. ASSESSMENT AND PLAN: 1. Clostridium difficile colitis. Resolved. 2. Acute pulmonary embolism. The patient's INR remained slightly above the subtherapeutic range off Coumadin. Hematology is following. 3. Pulmonary edema. Improved. 4. Hypothyroidism. Continue on Synthroid. 5. Severe protein-calorie malnutrition. Continue on Megace. The patient states that his appetite is slowly improving. 6. Severe debility and generalized weakness. Continue with physical therapy. 7. Supratherapeutic INR. Continue to hold the coumadin. Daily INR. MTDD
[2016-05-13] MEDS: LIPITOR PO SCH (22:37)
[2016-05-14] MEDS: AMBIEN PO SCH (02:07)
[2016-05-14] MEDS: DUONEB (A & A) INH PRN ×2 (02:51→19:25)
[2016-05-14] MEDS: MESTINON PO SCH ×3 (05:56→22:15)
[2016-05-14] MEDS: PRILOSEC PO SCH (05:57)
[2016-05-14 07:13] LABS: INR 3.64; PROTIME 41.5 Seconds (9.2-11.7)
[2016-05-14 07:31] LABS: AGAP 10; BUN 9 mg/dL (8-22); CALCIUM 8.4 mg/dL (8.8-10.2); CHLORIDE 106 mmol/L (98-107); COSMO 283; POTASSIUM 4.6 mmol/L (3.5-5.1); SODIUM 143 mmol/L (136-145); TCO2 27 mmol/L (25-35)
[2016-05-14] MEDS: SYNTHROID PO SCH (08:11)
[2016-05-14] MEDS: MEGACE LIQUID PO SCH (08:11)
[2016-05-14] MEDS: NORCO-10 PO PRN ×2 (08:11→16:23)
[2016-05-14] MEDS: COREG PO SCH ×2 (08:11→22:15)
[2016-05-14] MEDS: VITAMIN B-12 PO SCH (08:11)
[2016-05-14] MEDS: CULTURELLE PO SCH ×2 (08:11→22:15)
[2016-05-14] MEDS: MYCOSTATIN SUSP PO SCH ×4 (08:12→22:18)
[2016-05-14] MEDS: CORDARONE PO SCH ×2 (08:12→22:15)
[2016-05-14] MEDS: XANAX PO PRN ×2 (09:06→22:31)
[2016-05-14] MEDS: ROCEPHIN 1 GM/NS 50 ML IV SCH (14:35)
--- NOTE | 2016-05-14 16:56 | PROGRESS NOTE ---
DATE: 05/14/2016 SUBJECTIVE: The patient states that he feels a lot better today. He states that his appetite is picking up. OBJECTIVE: Vital Signs: Temperature 97.9 degrees, blood pressure 128/55, heart rate 73, respirations 14, O2 saturations 99% on 2 L nasal cannula. General: This is an elderly male, lying in bed, in no acute distress. Head: Normocephalic, atraumatic. Heart: S1, S2. Normal. Regular rate and rhythm. Lungs: Clear to auscultation bilaterally. No wheezes, no rales. No rhonchi. Abdomen: Positive bowel sounds. Soft, nontender, nondistended. Extremities: No edema. No cyanosis. LABORATORY: INR 3.6, sodium 143, potassium 4.6, chloride 106, CO2 27, BUN 9, creatinine 0.9, glucose 82. ASSESSMENT AND PLAN: 1. Clostridium difficile colitis. Resolved. 2. Acute pulmonary embolism. The patient's international normalized ratio is 3.6, today. We will start restart Coumadin at 1 mg daily tomorrow. Hematology is following. 3. Pulmonary edema. Improved. 4. Hypothyroidism. Continue on Synthroid. 5. Severe protein calorie malnutrition. Continue on Megace. 6. Severe debility and generalized weakness. Continue with physical therapy. 7. Urinary retention. Continue with the Boyer catheter. 8. Paroxysmal atrial fibrillation. The patient is rate controlled. The international normalized ratio is currently 3.6. 9. Dilated cardiomyopathy. Aware. 10. Pneumonia. Resolved. 11. Disposition. financial services associate is working on long-term placement for the patient.
[2016-05-14] MEDS: LIPITOR PO SCH (22:15)
[2016-05-15] MEDS: PRILOSEC PO SCH (06:19)
[2016-05-15] MEDS: MESTINON PO SCH ×2 (06:19→14:49)
[2016-05-15] MEDS: AMBIEN PO SCH (06:19)
[2016-05-15] MEDS: NORCO-10 PO PRN ×2 (06:52→14:51)
[2016-05-15 07:26] LABS: HEMOGLOBIN 12.2 g/dL (14.0-18.0); MCH 30.3 PG (27-31); MCHC 31.3 g/dL (33-37); MPV 10.2 FL (7.4-10.4); RBC 4.02 XMIL (4.7-6.1)
[2016-05-15 07:37] LABS: AGAP 9; BUN 8 mg/dL (8-22); CALCIUM 8.8 mg/dL (8.8-10.2); CHLORIDE 105 mmol/L (98-107); COSMO 279; POTASSIUM 5.2 mmol/L (3.5-5.1); SODIUM 141 mmol/L (136-145); TCO2 27 mmol/L (25-35)
[2016-05-15 07:42] LABS: INR 2.82; PROTIME 31.6 Seconds (9.2-11.7)
[2016-05-15] MEDS: COREG PO SCH (08:25)
[2016-05-15] MEDS: XANAX PO PRN ×2 (08:25→11:25)
[2016-05-15] MEDS: CORDARONE PO SCH (08:25)
[2016-05-15] MEDS: SYNTHROID PO SCH (08:25)
[2016-05-15] MEDS: VITAMIN B-12 PO SCH (08:25)
[2016-05-15] MEDS: CULTURELLE PO SCH (08:25)
[2016-05-15] MEDS: MYCOSTATIN SUSP PO SCH ×2 (10:00→14:49)
[2016-05-15] MEDS: MEGACE LIQUID PO SCH (10:00)
[2016-05-15] MEDS: ROCEPHIN 1 GM/NS 50 ML IV SCH (14:49)
--- NOTE | 2016-05-15 14:49 | DISCHARGE SUMMARY ---
ADMISSION DATE: 04/16/2016 DISCHARGE DATE: 04/17/2016 DISCHARGE DIAGNOSES: 1. Clostridium difficile infection resolved. 2. Acute pulmonary embolism under anticoagulation with warfarin. 3. Pulmonary edema resolved. 4. Hypothyroidism. 5. Severe protein calorie malnutrition. 6. Physical deconditioning. 7. Urinary retention. 8. Paroxysmal atrial fibrillation. 9. Dilated cardiomyopathy. 10. Community-acquired pneumonia resolved. CONSULTATIONS: Dr. Stuart Resendez from Cardiology, Dr. James from Neurology, Dr. Suárez from urology. PROCEDURES: 1. Head CT done on admission showed stable CT of the head. 2. Retrograde pyelogram showed no discrete abnormality. 3. Pulmonary arteriogram showed left-sided pulmonary embolism with pleural effusions with pulmonary edema minus pneumonia. 4. Echocardiogram showed mildly impaired systolic function with ejection fraction 48% with markedly enlarged left ventricular chamber with motion abnormality. 5. Abdomen and pelvis CT showed no improving pulmonary edema, nonspecific mesenteric adenopathy suggesting mesenteric adenitis, nonobstructing left renal stone. 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 Patient stated that he was so weak that his leg would not hold him up so he lose his balance but he denies any injury. He reports that he feels that he was having a urinary tract infection. Patient was admitted for further evaluation and treatment. The patient was started on broad-spectrum antibiotics. Patient was doing fine after all. Also couple weeks ago because this patient was complaining of shortness of breath PE was suspected so pulmonary angiogram was ordered and he was found to have a left pulmonary embolism so patient was started on Lovenox and was bridged to Lovenox to warfarin. Patient is doing good. Also for diarrhea we checked difficile colitis that was treated and now resolved. Definitely this patient has become very weak while he was in the hospital so also he has severe protein calorie malnutrition and he is receiving Megace as a help for his appetite. Also for paroxysmal atrial fibrillation patient was on sinus rhythm most of time under my examination. For dilated cardiomyopathy we have continued basically with the same management and now the patient is being discharged in stable condition. DISCHARGE PHYSICAL EXAMINATION: Vital Signs: Temperature 98.2 degrees, heart rate 69, respiratory rate 18, blood pressure 149/63, O2 saturation 100% on 3 L nasal cannula. General Examination: This is a 75-year-old male lying in bed in no acute distress. HEENT: Head is normocephalic, atraumatic. Anicteric sclerae and pale conjunctivae. Mucous membranes moist. Neck: Supple. No JVD noted. No carotid bruits. No lymphadenopathy. No thyromegaly. Cardiovascular: S1, S2 heard. No murmurs, gallops, or rubs. Regular rate and rhythm. Respiratory: Clear bilaterally to auscultation. No work of breathing or using accessory muscles. Abdomen: Soft, nontender to palpation. Bowel sounds present. No organomegaly. Extremities: No clubbing, cyanosis or edema. Peripheral pulses present in both legs. Neurological: Patient alert, oriented x3. Moves 4 extremities. LIST OF MEDICATIONS: 1. [place] 10 1 tablet p.o. 3 times per day. 2. Culturelle 1 tablet p.o. b.i.d. 3. Megestrol 400 mg p.o. daily. 4. Omeprazole 40 mg p.o. daily. 5. Warfarin 1 mg p.o. every bedtime. 6. Alprazolam 1 mg p.o. 7. Amiodarone 200 mg p.o. b.i.d. 8. Aspirin 81 mg 1 tablet p.o. daily. 9. Lipitor 20 mg 1 tablet p.o. daily at bedtime. 10. Carvedilol 3.125 mg p.o. b.i.d. 11. Multivitamin 1 tablet p.o. daily. 12. Potassium chloride 20 mEq daily. 13. Pyridostigmine 1 mg p.o. 3 times per day. 14. Sertraline 50 mg p.o. bedtime. 15. Zolpidem 3 mg 1 tablet p.o. daily. 16. Colace 1 tablet p.o. at bedtime. DISCHARGE DISPOSITION: Rehab facility. DISCHARGE TIME : 35 minutes MTDD
--- NOTE | 2016-05-15 15:03 | PROGRESS NOTE ---
DATE: 05/15/2016 SUBJECTIVE: Patient reports feeling fine. Denies any chest pain, fever, or chills. OBJECTIVE: Vital Signs: Temperature 98.2 degrees, heart rate 69, respiratory rate 18, blood pressure 149/63 O2 saturation 100% on 3 L nasal cannula. General Examination: This is a chronically ill-appearing and frail, 75-year-old male, lying in bed, in no acute distress. HEENT: Head is normocephalic, atraumatic. Anicteric sclerae. Pale conjunctivae. Mucous membranes moist. Neck: Supple. No JVD noted. No carotid bruits. No lymphadenopathy. No thyromegaly. Cardiovascular: S1, S2 heard. No murmurs, gallops, or rubs. Regular rate and rhythm. Respiratory: There are decreased breath sounds globally but there is no wheezing or rales. Patient is not using any accessory muscles or having work of breathing. Abdomen: Soft. Nontender to palpation. Bowel sounds present. No organomegaly. Extremities: No clubbing, cyanosis, or edema. Peripheral pulses present in both legs. Neurological: Patient is alert and oriented x3. Able to move 4 extremities. Cranial nerves 2 through 12 grossly normal. LABORATORY DATA: The CBC shows hemoglobin 10.2, hematocrit 39.0. BMP unremarkable. INR is 2.82. ASSESSMENT AND PLAN: 1. Clostridium difficile colitis. That condition is completely resolved. 2. Acute pulmonary embolism. INR is within range. We will continue with Coumadin. 3. Pulmonary edema, resolved. 4. Hypothyroidism. Will continue with home medications. In this case, Synthroid. 5. Severe protein calorie malnutrition. We will continue with Megace. 6. Physical deconditioning. We will continue with physical therapy. Waiting for a bed in a rehab facility. 7. Urinary retention. Patient is on Boyer catheter. 8. Paroxysmal atrial fibrillation. Right now the patient is in sinus rhythm. He is anticoagulated. 9. Dilated cardiomyopathy, aware. The patient is not complaining of any chest pain or shortness of breath. We will continue with the same management. 10. Community-acquired pneumonia, resolved. 11. Disposition patient is basically medically stable and waiting for a rehab facility.
[2016-05-15 17:02] VITALS: BP 122/57
[2016-05-15] MEDS ORDERED: COUMADIN PO SCH (21:00)
== END 2016-05-15 18:31 ==
LOC: 3N 04-17 12:01
PROVIDERS: ATTEND Internal Medicine

== ENCOUNTER 2018-12-04 12:44 | Inpatient (IN) ==
--- NOTE | 2018-12-04 14:15 | Diag Imaging Result Doc PS360 ---
EXAM: CT HEAD/C-SPINE W/O CONTRAST 12/04/2018 HISTORY: fall TECHNIQUE: This exam was performed using automated exposure control, adjustment of mA or kV according to patient size, and/or use of iterative reconstruction technique. COMMENT: There is generalized cerebral atrophy. There is no evidence of mass effect, bleed, or abnormal extra-axial fluid collection. There are some calcifications in the vertebral and internal carotid arteries bilaterally. Compared to 04/17/2017 the appearance of the brain has not changed significantly. There is partial opacification of the left maxillary sinus and opacification of the right middle ear and mastoid air cells bilaterally. The calvarium is intact. Cervical spine: There is severe facet arthropathy at the C3-4 and to a lesser extent the C4-5 and the C6-7 level on the right. There is posterior osteophyte formation at the C6-7 level. No evidence of acute fracture, subluxation, or prevertebral soft tissue swelling is present. 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 There is incomplete fusion of the posterior arch of C4. IMPRESSION: Moderate cerebral atrophy. No evidence of acute intracranial disease. Degenerative disc and facet disease in the cervical spine without evidence of acute bony abnormality. Electronically signed by Giorgi Bruno 12/04/2018 2:12 PM
--- NOTE | 2018-12-04 15:02 | Diag Imaging Result Doc PS360 ---
EXAM: FOOT COMPLETE LEFT HISTORY: fall TECHNIQUE: Three views COMPARISON: 12/19/2016 FINDINGS: There is osteopenia. Chronic performed of the of the proximal phalanx of the great toe. Lucency involving the base of the fifth metatarsal which may be a nutrient canal. Cannot exclude a nondisplaced fracture if symptomatic. Correlate clinically. There is diffuse osteoarthritis about the mid foot. IMPRESSION: Suspect nutrient canal base of fifth metatarsal. However, cannot exclude nondisplaced fracture if symptomatic. Correlate clinically. Chronic deformity and osteoarthritic change. Electronically signed by Cristina Galo 12/04/2018 3:00 PM
--- NOTE | 2018-12-04 15:06 | Diag Imaging Result Doc PS360 ---
EXAM: RIBS BILATERAL W/PA CHEST HISTORY: fall TECHNIQUE: Nine views. COMPARISON: None. FINDINGS: There may be a nondisplaced fracture involving the right posterior 10th rib. No other fractures are identified. No pneumothorax is identified. There is osteopenia and marked spondylosis thoracolumbar spine. Cardiomegaly with a left-sided pacemaker. There are postsurgical changes right distal clavicle. There are prominent interstitial markings right lung base compatible with fibrosis. IMPRESSION: Potential nondisplaced fracture right posterior 10th rib. Electronically signed by Cristina Galo 12/04/2018 3:04 PM
[2018-12-04 15:11] LABS: BASO# 0.03 X1000 (0.0-0.2); BASO% 0.3 % (0.0-0.8); EOS# 0.26 X1000 (0.0-0.7); EOS% 2.7 % (0.0-10.0); HEMATOCRIT 43.3 % (42.0-52.0); HEMOGLOBIN 13.9 g/dL (14.0-18.0); IMM GRAN# 0.01 X1000 (0.0-0.04); IMM GRAN% 0.1 % (0.0-0.5); LYMPH# 1.87 X1000 (1.2-3.4); LYMPH% 19.3 % (20.5-51.1); MCHC 32.1 g/dL (33-37); MCV 102.9 FL (81-99); MONO# 1.18 X1000 (0.11-0.59); MONO% 12.2 % (1.7-9.3); MPV 9.7 FL (7.4-10.4); NEUT# 6.33 X1000 (1.4-6.5); NEUT% 65.4 % (42.2-75.2); PLT 194 X1000 (130-400); RBC 4.21 XMIL (4.7-6.1); RDW 14.4 % (11.5-14.5); WBC 9.68 X1000 (4.8-10.8)
[2018-12-04 15:29] LABS: BILIRUBIN URINE NEGATIVE (NEGATIVE); BLOOD URINE NEGATIVE (NEGATIVE); CLARITY CLEAR (CLEAR); COLOR YELLOW; GLUCOSE URINE NEGATIVE (NEGATIVE); KETONE URINE NEGATIVE (NEGATIVE); LEUKOCYTES URINE 2+ (NEGATIVE); NITRITE URINE POSITIVE (NEGATIVE); PH URINE 6.5; PROTEIN URINE NEGATIVE (NEGATIVE); UROBILINOGEN URINE NORMAL
[2018-12-04 15:32] LABS: URINE BACTERIA 2+ /HFP; URINE CAST NONE SEEN /LPF; URINE CRYSTAL NONE SEEN /HPF; URINE EPITHELIAL CELLS <10 /HPF (<10); URINE SOURCE CATH; URINE WBC 20-40 /HPF (<10); URINE YEAST NONE SEEN /HPF
[2018-12-04 15:34] LABS: ALBUMIN 3.5 g/dL (3.5-5.0); CALCIUM 9.3 mg/dL (8.8-10.2); CREATININE 1.3 mg/dL (0.7-1.2); POTASSIUM 4.3 mmol/L (3.5-5.1); TOTAL BILIRUBIN 0.4 mg/dL (0.20-1.00); TOTAL PROTEIN 6.5 g/dL (6.3-8.3)
--- NOTE | 2018-12-04 16:04 | PROVIDER DOCUMENTATION ---
This chart was entered by Porfirio Weaver Scribe, acting as scribe for Jose Carcamo MD. HPI-General Adult - General Chief Complaint: Fall Stated Complaint: FALL Time Seen by Provider: 12/04/18 12:45 Source: patient, EMS Allergies/Adverse Reactions: Patient Allergies Allergy/AdvReac Type Severity Reaction Status Date / Time No Known Allergies Allergy Verified 11/07/18 09:16 Home Medications: Home Medication List Medication Instructions Recorded Confirmed Last Taken Type Atorvastatin Calcium [Lipitor] 20 mg PO QHS 02/07/13 02/13/17 12/18/16 20:00 History Levothyroxine [Synthroid] 125 microgm PO QAM 02/07/13 02/13/17 12/19/16 08:00 History Zolpidem [Ambien] 10 mg PO QHS 02/07/13 02/13/17 11/14/16 20:00 History Iron 65 mg PO QAM 06/11/14 02/13/17 12/19/16 08:00 History Multivitamin with Minerals 1 each PO QAM 06/11/14 02/13/17 12/19/16 08:00 History [Multiple Vitamin] Pyridostigmine [Mestinon] 1 tab PO TID 06/15/14 02/13/17 12/19/16 08:00 History Potassium Chloride E.r. [Klor-Con] 20 meq PO QAM 11/23/15 02/13/17 12/19/16 08:00 History Sertraline [Zoloft] 50 mg PO QAM 11/23/15 02/13/17 12/19/16 08:00 History Alprazolam [Xanax] 1 mg PO TID PRN #30 11/29/15 02/13/17 12/18/16 20:00 Rx Amiodarone [Cordarone] 200 mg PO BID #0 tablet 01/28/16 02/13/17 12/19/16 08:00 Rx Carvedilol [Coreg] 3.125 mg PO BID #0 tablet 01/28/16 02/13/17 12/19/16 08:00 Rx Cholecalciferol (Vit D3) [Vitamin 2,000 unit PO QPM #0 tablet 01/28/16 02/13/17 12/19/16 08:00 Rx D3] Cyanocobalamin [Vitamin B-12] 1,000 microgm PO QAM #0 tablet 01/28/16 02/13/17 12/19/16 08:00 Rx Furosemide [Lasix] 40 mg PO QAM #0 tablet 01/28/16 02/13/17 12/19/16 08:00 Rx Gabapentin [Neurontin] 300 mg PO TID #0 capsule 01/28/16 02/13/17 12/19/16 08:00 Rx Loratadine [Claritin] 10 mg PO QAM #0 tablet 01/28/16 02/13/17 12/19/16 08:00 Rx Hydrocodone/Acetaminophen [[place] 1 each PO TID PRN #60 tablet 05/15/16 02/13/17 12/19/16 08:00 Rx 10-325 Tablet] Warfarin [Coumadin] 1 mg PO QHS #30 tablet 05/15/16 02/13/17 12/18/16 20:00 Rx Levofloxacin [Levaquin] 500 mg PO DAILY 7 Days #7 tab 04/17/18 Unknown Rx - History of Present Illness -Gen Adult Nature of Presenting Problems: Pt is a 78 yom who presents to the ED via EMS with multiple complaints. Pt reports a hx of myasthenia gravis. Pt reports he is wheelchair bound. Pt reports he fell out of his wheelchair three days ago and twisted his left foot. Pt reports he fell again last night and states he landed on his right side. Pt reports he heard a cracking sound during his fall last night. Pt complains of left foot pain, right sided rib pain, chest wall tenderness, nausea, vomiting, and diarrhea. Pt reports chronic dizziness but states it has been worse lately. Pt denies a head injury or any loss of consciousness. Location of Pain/Injury: reports: chest, lower extremity, generalized Quality of Pain: reports: aching Severity: reports: mild Onset/Duration: reports: 3 days ago, last night Timing: reports: still present Associated Symptoms: reports: chest pain, diarrhea, nausea, sensory/motor loss, vomiting, weakness Review of Systems - Adult - REVIEW OF SYSTEMS - ADULT Constitutional: reports: see HPI Eyes: reports: no symptoms reported Ears, Nose, Mouth & Throat: reports: no symptoms reported Cardiovascular: reports: see HPI, chest pain Respiratory: reports: no symptoms reported Gastrointestinal: reports: see HPI, diarrhea, nausea, vomiting Genitourinary: reports: no symptoms reported Musculoskeletal: reports: see HPI Integumentary: reports: no symptoms reported Neurological: reports: no symptoms reported Psychiatric: reports: no symptoms reported Endocrine: reports: no symptoms reported Hematologic/Lymphatic: reports: no symptoms reported Allergic/Immunologic: reports: no symptoms reported All Other Systems: Reviewed and Negative Past History - Adult - PAST MEDICAL HISTORY-ADULT Review of Records: reports: Old Records Reviewed, Nursing Assessment Review, Medications Reviewed, Social history reviewed & non-contributory. Major Childhood Illnesses: reports: denies history Cardiovascular: reports: arrhythmia (defib/pacer), CAD, CHF (Cardiomyopathy with EF 15%), HTN, hyperlipidemia, [place], pacemaker, other (Fluid Retention) Respiratory: reports: COPD Gastrointestinal: reports: denies history Obstetrical/Gynecological: reports: denies history Genitourinary: reports: other (see hpi) Musculoskeletal: reports: arthritis, other (myes) Neurological: reports: CVA Psychiatric: reports: anxiety Endocrine/Immune: reports: thyroid disorder (hypo) Other Conditions: reports: denies history - PRIOR SURGERIES/PROCEDURES Surgical/Procedure History: reports: pacemaker, indwelling device, tonsillectomy , orthopedic (extremity), joint replacement, other, cardiac stent - IMMUNIZATION STATUS Childhood Immunizations: See Nurse Assessment Flu Vaccine: See Nurse Assessment - FAMILY HISTORY Family History: reviewed, not pertinent - SOCIAL HISTORY Smoking: denies, non-smoker, quit greater than 1 year Substance Use: none/never, denies Alcohol Use Frequency: never Physical Exam-General - PHYSICAL EXAM-ADULT Initial Vital Signs Reviewed: Yes - CONSTITUTIONAL General Appearance: alert, mild distress - EYES Eyes: PERRL/EOMI - HEAD, EARS, NOSE, MOUTH & THROAT HENMT: moist mucous membranes - NECK Neck: non-tender, full range of motion - RESPIRATORY Respiratory: lungs clear, normal breath sounds, no respiratory distress, no accessory muscle use - CARDIOVASCULAR Cardiovascular: normal peripheral pulses, regular rate, rhythm, no edema - GASTROINTESTINAL (ABDOMEN) Abdominal Exam: non tender, soft - MUSCULOSKELETAL Extremity: other (See HPI) - SKIN Integumentary: other (Ulcer on left foot) - NEUROLOGIC Neurologic: grossly normal - PSYCHIATRIC Psych/Mental Status: normal mood/affect, normal thought content, normal thought process, oriented x 3 Progress - PLAN OF CARE/RESULTS Result Diagrams: 12/04/18 14:57 12/04/18 14:57 - EKG 1 Time of EKG reading by physician:: 15:55 EKG Read and Signed by:: Jose Carcamo EKG Interpretation (*Must complete 3 of following elements*): Abnormal (AV dual- paced rhythm) Rate: 72 Rhythm: AV dual-paced rhythm [place]: normal QRS: normal [place] Interval: normal ST Wave: normal - XRAY 1 XRAY: Bilateral XRAY Study: Chest, Ribs Impression: See EMR Report (EXAM: RIBS BILATERAL W/PA CHEST HISTORY: fall TECHNIQUE: Nine views. COMPARISON: None. FINDINGS: There may be a nondisplaced fracture involving the right posterior 10th rib. No other fractures are identified. No pneumothorax is identified. There is osteopenia and marked spondylosis thoracolumbar spine. Cardiomegaly with a left-sided pacemaker. There are postsurgical changes right distal clavicle. There are prominent interstitial markings right lung base compatible with fibrosis. IMPRESSION: Potential nondisplaced fracture right posterior 10th rib. Electronically signed by Cristina Galo 12/04/2018 3:04 PM 12/04/18 1504 Interpreting Physician: Cristina Galo MD Dictated Date/Time: 12/04/18 1500 cc: Jose Carcamo MD; None,PCP) 2 XRAY: Left XRAY Study: Foot Impression: See EMR Report (EXAM: FOOT COMPLETE LEFT HISTORY: fall TECHNIQUE: Three views COMPARISON: 12/19/2016 FINDINGS: There is osteopenia. Chronic performed of the of the proximal phalanx of the great toe. Luc[place] involving the base of the fifth metatarsal which may be a nutrient canal. Cannot exclude a nondisplaced fracture if symptomatic. Correlate clinically. There is diffuse osteoarthritis about the mid foot. IMPRESSION: Suspect nutrient canal base of fifth metatarsal. However, cannot exclude nondisplaced fracture if symptomatic. Correlate clinically. Chronic deformity and osteoarthritic change. Electronically signed by Cristina Galo 12/04/2018 3:00 PM 12/04/18 1500 Interpreting Physician: Cristina Galo MD Dictated Date/Time: 12/04/18 1455 cc: Jose Carcamo MD; None,PCP) - CT/MRI 1 CT Study: Cervical Spine, Head Impression: See EMR Report ( EXAM: CT HEAD/C-SPINE W/O CONTRAST 12/04/2018 HISTORY: fall TECHNIQUE: This exam was performed using automated exposure control, adjustment of mA or kV according to patient size, and/or use of iterative reconstruction technique. COMMENT: There is generalized cerebral atrophy. There is no evidence of mass effect, bleed, or abnormal extra-axial fluid collection. There are some calcifications in the vertebral and internal carotid arteries bilaterally. Compared to 04/17/2017 the appearance of the brain has not changed significantly. There is partial opacification of the left maxillary sinus and opacification of the right middle ear and mastoid air cells bilaterally. The calvarium is intact. Cervical spine: There is severe facet arthropathy at the C3-4 and to a lesser extent the C4-5 and the C6-7 level on the right. There is posterior osteophyte formation at the C6-7 level. No evidence of acute fracture, subluxation, or prevertebral soft tissue swelling is present. 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 There is incomplete fusion of the posterior arch of C4. IMPRESSION: Moderate cerebral atrophy. No evidence of acute intracranial disease. Degenerative disc and facet disease in the cervical spine without evidence of acute bony abnormality. Electronically signed by Giorgi Bruno 12/04/2018 2:12 PM 12/04/18 1412 Interpreting Physician: Giorgi Bruno MD Dictated Date/Time: 12/04/18 1401 cc: Jose Carcamo MD; None,PCP) - CONSULTS/PCP/HOSPITALIST Notification #1 *Consult/PCP/Hospitalist*: D/w Dr Miller Time Discussed: 16:00 Consult Disposition: Admit Departure - Departure Date of Disposition Decision: 12/04/18 Time of Disposition Decision: 16:01 DIAGNOSIS: Fall, UTI (urinary tract infection), Closed rib fracture, Metatarsal bone fract ure Disposition: ADMITTED INPATIENT 09 Certified Medical Emergency: Emergent Condition: Stable Additional Instructions: ED Follow Up Instructions: You have been treated by a care provider in the Emergency Department. These instructions are being provided to you so you can have an understanding of how to care for yourself upon discharge. Upon discharge from the Emergency Department, you are responsible for making arrangements for follow-up care by a physician of your choice. Take all prescribed medications as directed. Return to the Emergency Department immediately for any new or worsening symptoms. You may call the Physician Referral phone number at [phone] to obtain a list of Physicians who are taking new patients. Referrals and Follow-Ups: None,PCP [Primary Care Provider] - - Critical Care Note This patient required my direct & personal management of CC.: No Attestation - Physician/ SETH Attestation Patient care was provided by Advanced Practice Provider:: No The physician spent face to face time with patient:: Yes Advanced Practice Provider documentation review:: Supervising physician onsite and consulted in the evaluation and care of this patient. The physician did have a face to face encounter with the patient. This chart was documented by the indicated scribe, (Porfirio Weaver, Brijesh) and accurately reflects the services I performed and decisions made by me, Jose Carcamo MD, as attested by the provider's signature.
--- NOTE | 2018-12-04 16:21 | EKG Report ---
Test Performed on : 12/04/2018 3:53:52 PM Test Reason : irregular rhthym Blood Pressure : / mmHG Vent. Rate : 072 BPM Atrial Rate : 072 BPM P-R Int : 000 ms QRS Dur : 236 ms QT Int : 514 ms P-R-T Axes : 000 040 -44 degrees QTc Int : 562 ms AV dual-paced rhythm Abnormal ECG When compared with ECG of 17-APR-2018 15:43, Vent. rate has increased BY 2 BPM Unconfirmed Result
[2018-12-04 18:28] LABS: INR 0.91; PROTIME 12.7 Seconds (11.0-16.0)
[2018-12-04] MEDS: NS 1,000 ML IV SCH (20:20)
[2018-12-04] MEDS: ZOSYN 3.375 GM in NS 50 ML IV SCH (20:26)
--- NOTE | 2018-12-04 22:01 | HISTORY AND PHYSICAL ---
CHIEF COMPLAINT: Frequent falls with left foot pain, right side pain, history of myasthenia gravis, urinary tract infection. HISTORY OF PRESENT ILLNESS: This is a 78-year-old gentleman with a history of myasthenia gravis, who is wheelchair bound, atrial fibrillation, ischemic cardiomyopathy, status post pacemaker and ICD, hypothyroid, and coronary artery disease. He presents to the emergency room with multiple complaints, stating that he fell out of his wheelchair 3 days ago and hurt his left foot. Last night, he fell and has had right side pain since. He states he heard a cracking sound when he fell, and he has had right-sided rib pain since along with chest wall tenderness. He does have a history of chronic dizziness. He states it has been worse over the last few days. Of note, he was diagnosed with a Proteus penneri and Escherichia coli urinary tract infection on 11/20/2018, and at that time he was placed on Bactrim DS, although he feels that he is not improved. PAST MEDICAL HISTORY: 1. Ischemic cardiomyopathy, with an ejection fraction of 40% that has been documented as low as 20%, although our last echocardiogram was 40% in 2017. 2. Paroxysmal atrial fibrillation, on amiodarone. 3. Status post pacemaker with implantable defibrillator. 4. Hypertension. 5. Hyperlipidemia. 6. History of pulmonary embolus. 7. Neurogenic bladder, status post suprapubic catheter with chronic UTI. 8. Obesity. 9. Myasthenia gravis. PAST SURGICAL HISTORY: 1. Right hip replacement. 2. Left hip replacement. 3. Status post gastric bypass. 4. Tonsillectomy. 5. Transurethral resection of the prostate. 6. Suprapubic catheter placement. 7. Pacemaker, ICD placement. SOCIAL HISTORY: He quit smoking about 30 years ago. He did drink alcohol up until about 5 years ago. 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 FAMILY HISTORY: Positive for coronary artery disease and hypertension. ALLERGIES: No known drug allergies. HOME MEDICATIONS: A list will be obtained by the nursing staff and once verified, will review and restart as appropriate. REVIEW OF SYSTEMS: Discussed with the patient with pertinent positives stated in the HPI. He denied any chest pain, palpitations, any fevers or chills, night sweats, any black or bloody vomitus or stools, any hematuria. PHYSICAL EXAMINATION: GENERAL: This is a 78-year-old gentleman who is lying on the stretcher in the emergency room in no distress. VITAL SIGNS: Blood pressure is 112/56, heart rate of 72, respirations 18, temperature is 98.6 degrees, with O2 saturations that are 98% on 3 L nasal cannula. EYES: Pupils are equal, round, react to light. EOMs are intact. Sclerae anicteric. HEAD: Normocephalic, atraumatic. MUCOUS MEMBRANES: Moist. NECK: Supple. Trachea midline. No JVD. CARDIOVASCULAR: Regular rate and rhythm. S1 and S2 appreciated. No murmurs. His calves are nontender bilateral with peripheral pulses palpable x4 extremities. PULMONARY: Breath sounds are clear. No increased work of breathing noted. Chest rises and falls symmetrically with respiration. Chest wall is tender to palpation on the right side. GASTROINTESTINAL: Abdomen is soft, nontender, nondistended. Bowel sounds in all 4 quadrants. : Suprapubic catheter is patent with lionel urine draining. SKIN: Warm and dry. He does have an ulcer noted to his left foot. NEUROLOGIC: He is alert and oriented x3. LABS: WBC is 9.6 with hemoglobin 13.9, hematocrit 43.3, and platelets of 194,000. Sodium 137, potassium 4.3, BUN 23, creatinine 1.3, with a glucose of 128. Urinalysis is nitrite positive with 20 to 40 microscopic white blood cells and 2+ bacteria. Urine culture is pending. CT of the head and cervical spine reveals moderate cerebral atrophy. No evidence of acute intracranial disease. Degenerative disk and facet disease in the cervical spine without evidence of acute bony abnormality. Ribs with chest x-ray: Potential nondisplaced fracture of the right posterior 10th rib. Left foot x-ray reveals suspect nutrient canal base of 5th metatarsal. Cannot exclude nondisplaced fracture if symptomatic. ASSESSMENT AND PLAN: 1. Fall. 2. Right closed rib fracture. 3. Urinary tract infection, in a patient who is most likely colonized with Escherichia coli, although he did have Proteus penneri noted on a culture on 11/20/2018. He has been symptomatic. 4. Metatarsal bone fracture. 5. Ischemic cardiomyopathy. 6. History of atrial fibrillation. 7. Status post pacemaker and implantable cardiac defibrillator placement. 8. Hypothyroid. 9. Myasthenia gravis. PLAN: 1. The patient will be admitted to medical/surgical floor at [facility]. 2. placed on telemetry. 3. confirm his home medications and continue as appropriate. 4. consult Insect Control Aide for discharge planning as well as Wound Care for ulcer of his left foot. 5. consult Physical Therapy. 6. CBC, CMP, magnesium, PT, INR, TSH in the morning 7. We will continue with intravenous hydration. 8 Zofran for nausea. Further treatments pending hospital course. Plan was discussed with Dr. Miller. Dictated by RADHA Aviles for Lyle Miller MD cc: RADHA Aviles MD [facility]
[2018-12-04] MEDS: ZOFRAN IV PRN (23:09)
--- NOTE | 2018-12-04 23:40 | HISTORY AND PHYSICAL ---
ADDENDUM: Patient seen and examined by myself. Full note dictated and discussed with nurse practitioner. The patient presented to the hospital after falling. He was diagnosed with rib fracture. It certainly appears he has a urinary tract infection. We are going to admit him to the hospital, place him on antibiotics and will follow. cc: Lyle Miller MD
[2018-12-05] MEDS: ZOSYN 3.375 GM in NS 50 ML IV SCH ×4 (03:29→20:43)
[2018-12-05] MEDS: NS 1,000 ML IV SCH ×2 (06:12→17:41)
[2018-12-05 06:24] LABS: HEMATOCRIT 41.6 % (42.0-52.0); HEMOGLOBIN 13.1 g/dL (14.0-18.0); MCH 32.6 PG (27-31); MCHC 31.5 g/dL (33-37); MCV 103.5 FL (81-99); MPV 9.8 FL (7.4-10.4); RBC 4.02 XMIL (4.7-6.1); RDW 14.4 % (11.5-14.5); WBC 7.47 X1000 (4.8-10.8)
[2018-12-05 06:43] LABS: AGAP 8; ALBUMIN 3.3 g/dL (3.5-5.0); ALKALINE PHOSPHATASE 79 U/L (32-122); BUN 23 mg/dL (8-22); CALCIUM 8.5 mg/dL (8.8-10.2); CHLORIDE 107 mmol/L (98-107); CK PROFILE 52 U/L (24-204); COSMO 283; CREATININE 1.1 mg/dL (0.7-1.2); ESTIMATED GFR > 60; GLUCOSE 105 mg/dL (70-104); GOT 33 U/L (10-34); GPT 46 U/L (10-44); INR 0.93; MAGNESIUM 2.2 mg/dL (1.5-2.7); POTASSIUM 4.7 mmol/L (3.5-5.1); PROTIME 12.9 Seconds (11.0-16.0); SODIUM 140 mmol/L (136-145); TCO2 26 mmol/L (25-35); TOTAL PROTEIN 5.7 g/dL (6.3-8.3)
[2018-12-05] MEDS: MESTINON PO SCH ×4 (10:59→20:43)
[2018-12-05] MEDS: ZOFRAN IV PRN (16:05)
--- NOTE | 2018-12-06 00:05 | PROGRESS NOTE ---
DATE: 12/05/2018 SUBJECTIVE: Patient with no new complaints. States overall he is feeling okay. Denies any fevers. He has not really been out of bed. PHYSICAL EXAMINATION: Vital Signs: Temperature 98 degrees, pulse 78, respiratory 20, BP 122/64. General: Patient is in no current respiratory distress. HEENT: Normocephalic. Neck: Supple. Cardiovascular: Regular rate. No murmurs. Chest: Clear and nonlabored. Abdomen: Soft, nondistended. Extremities: Moves all extremities. ASSESSMENT: 1. Urinary tract infection, growing gram-negative rods. 2. Myasthenia gravis. 3. Hypothyroidism. 4. Ischemic cardiomyopathy. 5. History of atrial fibrillation. 6. Metatarsal bone fracture. 7. Right rib closed fracture. PLAN: We need to get a boot to place on his foot so that we can get Physical Therapy involved to start ambulation. We will continue antibiotics until final urine cultures. cc: Lyle Miller MD
[2018-12-06] MEDS: ZOSYN 3.375 GM in NS 50 ML IV SCH ×4 (02:09→20:28)
[2018-12-06] MEDS: TYLENOL PO PRN (03:26)
[2018-12-06] MEDS: NS 1,000 ML IV SCH (05:45)
[2018-12-06] MEDS ORDERED: PNEUMOVAX 23 IM ONE (08:00)
[2018-12-06] MEDS ORDERED: FLU VACCINE IM ONE (08:00)
[2018-12-06] MEDS: IMODIUM PO PRN ×2 (08:28→22:55)
[2018-12-06] MEDS: MESTINON PO SCH ×4 (08:28→20:28)
[2018-12-06] MEDS: ZOLOFT PO SCH (09:00)
[2018-12-06] MEDS: NEURONTIN PO SCH ×3 (09:31→20:28)
[2018-12-06] MEDS: COREG PO SCH ×2 (09:32→20:28)
[2018-12-06] MEDS: FERROUS SULFATE PO SCH (09:32)
[2018-12-06] MEDS: THERA M PLUS PO SCH (09:32)
[2018-12-06] MEDS: KLOR-CON PO SCH (09:32)
[2018-12-06] MEDS: VITAMIN D PO SCH (09:32)
[2018-12-06] MEDS: CORDARONE PO SCH ×2 (09:32→20:28)
[2018-12-06] MEDS: LASIX PO SCH (09:33)
[2018-12-06] MEDS: PATIENT'S OWN MED TOP SCH ×3 (09:33→20:29)
[2018-12-06] MEDS: ASPIRIN PO SCH (09:33)
[2018-12-06] MEDS: BUSPAR PO SCH ×3 (09:33→20:28)
[2018-12-06] MEDS: VITAMIN C PO SCH (09:33)
--- NOTE | 2018-12-06 12:16 | PROGRESS NOTE ---
DATE: 12/06/2018 SUBJECTIVE: Patient notes that he is feeling okay. Denies any fevers, chills, cough, congestion. States he still has some pain in his ribs and his left foot. PHYSICAL EXAMINATION: Temperature 98, pulse 70, BP 112/54.General: Patient is awake, alert. He is in no current respiratory distress. HEENT: Normocephalic. Neck: Supple. Cardiovascular: Regular rate. Chest: Clear. Good air movement. Abdomen: Soft. Extremities: Moves all extremities. Neurologic: No changes. ASSESSMENT: 1. Rib fracture. 2. Left metatarsal fracture. 3. Urinary tract infection with gram-negative rods. 4. Metabolic encephalopathy, resolved. 5. Frequent falls. 6. Myasthenia Gravis. 7. Hypertension. 8. Hyperlipidemia. PLAN: We are going to continue antibiotics until his culture returns. We will place him in a walking boot and allow him to start weightbearing on his foot. We will continue to follow. Further orders as needed. Expect that he will need rehab prior to discharge. cc: Lyle Miller MD
[2018-12-06] MEDS: ELAVIL PO SCH (20:28)
[2018-12-06] MEDS: CLARITIN PO SCH (20:28)
[2018-12-06] MEDS: LUNESTA PO PRN (20:28)
[2018-12-06] MEDS: LIPITOR PO SCH (20:28)
[2018-12-07] MEDS: ZOSYN 3.375 GM in NS 50 ML IV SCH (02:18)
[2018-12-07] MEDS: SYNTHROID PO SCH ×2 (06:15)
[2018-12-07] MEDS ORDERED: SYNTHROID PO SCH (07:00)
--- NOTE | 2018-12-07 10:22 | PROGRESS NOTE ---
DATE: 12/07/2018 SUBJECTIVE: Patient has no complaints this morning. OBJECTIVE: Vital Signs: Temperature 97.5 degrees, pulse 69 per minute, respiratory rate 20 per minute, blood pressure 114/50, pulse oximetry 96% on room air. General: Patient is alert and awake. He does not appear to be in any acute distress. Cardiovascular System: First and second heart sounds are audible without any murmurs or gallops. Respiratory System: No respiratory distress noted. Bilateral lung air entry is moderately decreased but there are no rales or rhonchi present on auscultation. Gastrointestinal: Abdomen is soft and nondistended. Normal bowel sounds are present. DIAGNOSTIC DATA: Urine culture grew E coli that is ESBL positive and has been sensitive to gentamicin, imipenem, and nitrofurantoin. It is resistant to sulfa, tobramycin and levofloxacin. IMPRESSION: 1. Frequent falls with right sided closed rib fracture and left foot metatarsal fracture. 2. Extended spectrum beta-lactamase positive Escherichia coli urinary tract infection. 3. Ischemic cardiomyopathy. PLAN: 1. The patient is going to be started on Invanz 1 g IV every 24 hours as per culture sensitivity of urine. 2. He will continue with the rest of his medications. 3. His overall condition has been stable, but we need to treat his Extended spectrum beta- lactamase positive Escherichia coli urinary tract infection. Once that gets treated, probably he can be discharged at that time, likely to rehab facility. cc: Kriss Gautam MD
[2018-12-07] MEDS: VITAMIN D PO SCH (11:05)
[2018-12-07] MEDS: MESTINON PO SCH ×4 (11:05→21:10)
[2018-12-07] MEDS: BUSPAR PO SCH ×3 (11:06→21:09)
[2018-12-07] MEDS: KLOR-CON PO SCH (11:06)
[2018-12-07] MEDS: NEURONTIN PO SCH ×3 (11:07→21:10)
[2018-12-07] MEDS: THERA M PLUS PO SCH (11:07)
[2018-12-07] MEDS: CORDARONE PO SCH ×2 (11:09→21:11)
[2018-12-07] MEDS: ASPIRIN PO SCH (11:09)
[2018-12-07] MEDS: LASIX PO SCH (11:11)
[2018-12-07] MEDS: FERROUS SULFATE PO SCH (11:11)
[2018-12-07] MEDS: ZOLOFT PO SCH (11:12)
[2018-12-07] MEDS: VITAMIN C PO SCH (11:12)
[2018-12-07] MEDS: COREG PO SCH ×2 (11:16→21:11)
[2018-12-07] MEDS: INVANZ 1 GM/NS 1 GM/50 ML IVPB IV SCH (11:43)
[2018-12-07] MEDS: PATIENT'S OWN MED TOP SCH ×3 (17:13→21:09)
[2018-12-07] MEDS: LIPITOR PO SCH (21:10)
[2018-12-07] MEDS: ELAVIL PO SCH (21:10)
[2018-12-07] MEDS: CLARITIN PO SCH (21:11)
[2018-12-07] MEDS: LUNESTA PO PRN (21:11)
[2018-12-08] MEDS: SYNTHROID PO SCH ×2 (06:21)
[2018-12-08] MEDS: COREG PO SCH ×2 (09:57→21:31)
[2018-12-08] MEDS: ASPIRIN PO SCH (09:57)
[2018-12-08] MEDS: BUSPAR PO SCH ×3 (09:58→21:45)
[2018-12-08] MEDS: KLOR-CON PO SCH (09:58)
[2018-12-08] MEDS: INVANZ 1 GM/NS 1 GM/50 ML IVPB IV SCH (09:58)
[2018-12-08] MEDS: VITAMIN C PO SCH (09:58)
[2018-12-08] MEDS: ZOLOFT PO SCH (09:58)
[2018-12-08] MEDS: VITAMIN D PO SCH (09:58)
[2018-12-08] MEDS: FERROUS SULFATE PO SCH (09:58)
[2018-12-08] MEDS: THERA M PLUS PO SCH (09:58)
[2018-12-08] MEDS: LASIX PO SCH (09:58)
[2018-12-08] MEDS: NEURONTIN PO SCH ×3 (09:58→21:45)
[2018-12-08] MEDS: PATIENT'S OWN MED TOP SCH ×2 (09:59→17:28)
[2018-12-08] MEDS: MESTINON PO SCH ×4 (09:59→21:45)
[2018-12-08] MEDS: CORDARONE PO SCH ×2 (10:00→21:45)
--- NOTE | 2018-12-08 10:00 | PROGRESS NOTE ---
DATE: 12/08/2018 SUBJECTIVE: The patient denies having any acute complaints this morning, and feels well. OBJECTIVE: Vital Signs: Temperature 97.5 degrees, pulse 70 per minute, respiratory rate 18 per minute, blood pressure 116/62, pulse oximetry 94% on room air. General: The patient is alert and oriented x3. He does not appear to be in any acute distress. Cardiovascular: First and second heart sounds are audible without any murmurs or gallops. Respiratory: Bilateral lung air entry is good without any rales or rhonchi. Gastrointestinal: Abdomen is soft and nondistended. Normal bowel sounds are present. Suprapubic catheter is noted. DIAGNOSTIC DATA: No new diagnostic data has been done today. IMPRESSION: 1. Frequent falls with right-sided closed fracture and left foot metatarsal fracture. 2. Urinary tract infection. 3. Ischemic cardiomyopathy. PLAN: The patient's condition is stable, although he has generalized deconditioning. We are going to continue giving him ertapenem intravenously for his urinary tract infection as per culture sensitivity report. His overall condition has been stable otherwise, and I am going to have some repeat labs for tomorrow morning. Once we treat his urinary tract infection, he will need to be transferred to rehab because of generalized deconditioning. cc: Kriss Gautam MD
[2018-12-08] MEDS: TYLENOL PO PRN (14:06)
[2018-12-08] MEDS: ELAVIL PO SCH (21:45)
[2018-12-08] MEDS: LIPITOR PO SCH (21:45)
[2018-12-08] MEDS: CLARITIN PO SCH (21:45)
[2018-12-08] MEDS: LUNESTA PO PRN (21:48)
[2018-12-09] MEDS: PATIENT'S OWN MED TOP SCH ×4 (04:33→21:53)
[2018-12-09] MEDS: SYNTHROID PO SCH ×2 (06:29)
[2018-12-09 07:22] LABS: AGAP 10; ALBUMIN 3.2 g/dL (3.5-5.0); ALKALINE PHOSPHATASE 73 U/L (32-122); BUN 14 mg/dL (8-22); CALCIUM 8.9 mg/dL (8.8-10.2); CHLORIDE 104 mmol/L (98-107); COSMO 281; CREATININE 0.8 mg/dL (0.7-1.2); ESTIMATED GFR > 60; GLUCOSE 87 mg/dL (70-104); GOT 24 U/L (10-34); GPT 26 U/L (10-44); POTASSIUM 4.5 mmol/L (3.5-5.1); SODIUM 141 mmol/L (136-145); TCO2 27 mmol/L (25-35); TOTAL PROTEIN 5.5 g/dL (6.3-8.3)
[2018-12-09] MEDS: THERA M PLUS PO SCH (09:41)
[2018-12-09] MEDS: INVANZ 1 GM/NS 1 GM/50 ML IVPB IV SCH (09:41)
[2018-12-09] MEDS: VITAMIN D PO SCH (09:41)
[2018-12-09] MEDS: BUSPAR PO SCH ×3 (09:42→21:52)
[2018-12-09] MEDS: KLOR-CON PO SCH (09:42)
[2018-12-09] MEDS: LASIX PO SCH (09:42)
[2018-12-09] MEDS: ASPIRIN PO SCH (09:42)
[2018-12-09] MEDS: CORDARONE PO SCH ×2 (09:42→21:52)
[2018-12-09] MEDS: MESTINON PO SCH ×4 (09:42→21:52)
[2018-12-09] MEDS: VITAMIN C PO SCH (09:43)
[2018-12-09] MEDS: NEURONTIN PO SCH ×3 (09:43→21:52)
[2018-12-09] MEDS: COREG PO SCH ×2 (09:43→21:52)
[2018-12-09] MEDS: ZOLOFT PO SCH (09:43)
[2018-12-09] MEDS: FERROUS SULFATE PO SCH (09:43)
[2018-12-09] MEDS: IMODIUM PO PRN (12:54)
[2018-12-09] MEDS: NORCO-10 PO PRN (16:58)
[2018-12-09] MEDS: LIPITOR PO SCH (21:52)
[2018-12-09] MEDS: ELAVIL PO SCH (21:52)
[2018-12-09] MEDS: CLARITIN PO SCH (21:52)
--- NOTE | 2018-12-09 22:41 | PROGRESS NOTE ---
DATE: 12/09/2018 SUBJECTIVE: Patient is feeling a lot stronger. Denies any fevers or chills. PHYSICAL EXAMINATION: Temperature 97, pulse 70, respiratory 18, BP 108/37.General: Patient is awake, alert. He is in no respiratory distress. Pleasant to talk with. HEENT: Normocephalic. Neck: Supple. Cardiovascular: Regular rate. Chest: Clear, nonlabored. Abdomen: Soft, nondistended, nontender. Extremities: Moves all extremities. Neurologic: No changes. ASSESSMENT: 1. Extended spectrum beta-lactamases positive urinary tract infection. Currently on ertapenem. 2. Right-sided rib fracture. 3. Left metatarsal foot fracture. 4. History of ischemic cardiomyopathy. PLAN: We will continue patient in the hospital on ertapenem. He likely will have to stay in the hospital for his entire treatment prior to being discharged back to rehab. cc: Lyle Miller MD
[2018-12-10] MEDS: SYNTHROID PO SCH ×2 (06:26)
[2018-12-10] MEDS: INVANZ 1 GM/NS 1 GM/50 ML IVPB IV SCH (09:41)
[2018-12-10] MEDS: THERA M PLUS PO SCH (09:42)
[2018-12-10] MEDS: BUSPAR PO SCH ×3 (09:42→22:59)
[2018-12-10] MEDS: MESTINON PO SCH ×4 (09:42→22:59)
[2018-12-10] MEDS: ASPIRIN PO SCH (09:42)
[2018-12-10] MEDS: CORDARONE PO SCH ×2 (09:42→22:58)
[2018-12-10] MEDS: FERROUS SULFATE PO SCH (09:42)
[2018-12-10] MEDS: LASIX PO SCH (09:42)
[2018-12-10] MEDS: KLOR-CON PO SCH (09:42)
[2018-12-10] MEDS: NEURONTIN PO SCH ×3 (09:42→22:59)
[2018-12-10] MEDS: VITAMIN C PO SCH (09:43)
[2018-12-10] MEDS: VITAMIN D PO SCH (09:43)
[2018-12-10] MEDS: COREG PO SCH ×2 (09:43→22:59)
[2018-12-10] MEDS: ZOLOFT PO SCH (09:43)
--- NOTE | 2018-12-10 12:51 | PROGRESS NOTE ---
DATE: 12/10/2018 SUBJECTIVE: Patient reports feeling fine. Denies any fever or chills. He is eating okay. OBJECTIVE: Vitals: Temperature 98.2 degrees, heart rate 72, respiratory rate 18, blood pressure 130/66, O2 saturation 96% on room air. General Examination: This is a chronically ill-appearing, 78-year-old, male, lying in bed, in no acute distress. Cardiovascular Examination: S1 and S2 heard. No murmurs, gallops, or rubs. Regular rate and rhythm. Respiratory Examination: Clear bilaterally to auscultation. No work of breathing or using accessory muscles. Abdomen: Soft, nontender to palpation. Bowel sounds present. No organomegaly. Extremities: No clubbing, cyanosis, or edema. Peripheral pulses present in both legs. Neurological Examination: The patient is alert and oriented x3. Moves 4 extremities. Laboratory Data: There is no CBC from the last 5 days. BMP from yesterday is completely normal. ASSESSMENT: 1. Extended-spectrum B-lactamase Escherichia coli urinary tract infection. 2. Right-sided rib fracture. 3. Left metatarsal foot fracture. 4. History of ischemic cardiomyopathy. PLAN: At this point, the patient is stable. He is receiving treatment for ESBL E. coli urinary tract infection. White cell count is normal for the last 5 days. Today is day #2 of treatment. I am going to repeat urine culture to confirm eradication of this infection. The patient also has physical deconditioning and needed to go to a rehab facility. We will check with clinical social work aide if this medication can be covered to complete 2 weeks of total of antibiotics with this infection. Otherwise, the patient is ready to go. cc: Gigi Ledbetter MD
[2018-12-10] MEDS: PATIENT'S OWN MED TOP SCH ×2 (13:22→18:02)
[2018-12-10] MEDS: IMODIUM PO PRN (13:22)
[2018-12-10] MEDS: NORCO-10 PO PRN (15:35)
[2018-12-10 22:43] LABS: BASO# 0.04 X1000 (0.0-0.2); BASO% 0.5 % (0.0-0.8); EOS# 0.43 X1000 (0.0-0.7); EOS% 5.1 % (0.0-10.0); HEMATOCRIT 38.1 % (42.0-52.0); HEMOGLOBIN 11.8 g/dL (14.0-18.0); IMM GRAN# 0.02 X1000 (0.0-0.04); IMM GRAN% 0.2 % (0.0-0.5); LYMPH# 2.13 X1000 (1.2-3.4); LYMPH% 25.1 % (20.5-51.1); MCH 32.2 PG (27-31); MCV 104.1 FL (81-99); MONO# 0.89 X1000 (0.11-0.59); MONO% 10.5 % (1.7-9.3); MPV 9.7 FL (7.4-10.4); NEUT# 4.99 X1000 (1.4-6.5); NEUT% 58.6 % (42.2-75.2); PLT 169 X1000 (130-400); RBC 3.66 XMIL (4.7-6.1); RDW 14.3 % (11.5-14.5)
[2018-12-10] MEDS: CLARITIN PO SCH (22:58)
[2018-12-10] MEDS: ELAVIL PO SCH (22:59)
[2018-12-10] MEDS: LUNESTA PO PRN (22:59)
[2018-12-10] MEDS: LIPITOR PO SCH (22:59)
[2018-12-11] MEDS: SYNTHROID PO SCH ×2 (06:46)
[2018-12-11] MEDS: PATIENT'S OWN MED TOP SCH ×3 (07:54→15:01)
[2018-12-11] MEDS: MESTINON PO SCH ×4 (08:48→20:30)
[2018-12-11] MEDS: KLOR-CON PO SCH (08:48)
[2018-12-11] MEDS: VITAMIN D PO SCH (08:49)
[2018-12-11] MEDS: NEURONTIN PO SCH ×3 (08:49→20:22)
[2018-12-11] MEDS: VITAMIN C PO SCH (08:49)
[2018-12-11] MEDS: ZOLOFT PO SCH (08:49)
[2018-12-11] MEDS: LASIX PO SCH (08:49)
[2018-12-11] MEDS: FERROUS SULFATE PO SCH (08:49)
[2018-12-11] MEDS: COREG PO SCH ×2 (08:49→20:23)
[2018-12-11] MEDS: BUSPAR PO SCH ×3 (08:49→20:21)
[2018-12-11] MEDS: CORDARONE PO SCH ×2 (08:49→20:22)
[2018-12-11] MEDS: THERA M PLUS PO SCH (08:49)
[2018-12-11] MEDS: ASPIRIN PO SCH (08:49)
[2018-12-11] MEDS: INVANZ 1 GM/NS 1 GM/50 ML IVPB IV SCH (09:30)
[2018-12-11] MEDS: NORCO-10 PO PRN (11:29)
--- NOTE | 2018-12-11 13:40 | PROGRESS NOTE ---
DATE: 12/11/2018 SUBJECTIVE: The patient reports feeling okay. Denies any fever or chills. OBJECTIVE: Vital Signs: Temperature 97.9 degrees, heart rate 70, respiratory rate 20, blood pressure 105/56, O2 saturation 100% on 2 L nasal cannula. General Examination: This is a 78-year- old, male, lying in bed, in no acute distress. Cardiovascular Examination: S1 and S2 heard. No murmurs, gallops, or rubs. Regular rate and rhythm. Respiratory Examination: Clear bilaterally to auscultation. No work of breathing or using accessory muscles. Abdomen: Soft. Nontender to palpation. Bowel sounds present. No organomegaly. Extremities: No clubbing, cyanosis, or edema. Peripheral pulses present in both legs. Neurological Examination: The patient is alert and oriented x3. Moves 4 extremities. Laboratory Data: Reviewed. ASSESSMENT: 1. Extended-spectrum B-lactamase Escherichia coli urinary tract infection. 2. Right-sided rib fracture. 3. Left metatarsal foot fracture. 4. History of ischemic cardiomyopathy. PLAN: At this point, the patient is doing fine. Today is day #4 of treatment with ertapenem for this condition. At this point, we are looking for a rehab facility for this patient that can afford his antibiotic. He requires to have 10 more days of that. grounds worker is involved in his care. At this point, we will continue providing the same medications. cc: Gigi Ledbetter MD
[2018-12-11] MEDS: CLARITIN PO SCH (20:21)
[2018-12-11] MEDS: ELAVIL PO SCH (20:22)
[2018-12-11] MEDS: LUNESTA PO PRN (20:30)
[2018-12-11] MEDS: LIPITOR PO SCH (21:30)
[2018-12-12] MEDS: SYNTHROID PO SCH ×2 (06:21)
[2018-12-12] MEDS: LASIX PO SCH (10:14)
[2018-12-12] MEDS: FERROUS SULFATE PO SCH (10:14)
[2018-12-12] MEDS: ASPIRIN PO SCH (10:14)
[2018-12-12] MEDS: NEURONTIN PO SCH ×2 (10:14→14:13)
[2018-12-12] MEDS: KLOR-CON PO SCH (10:14)
[2018-12-12] MEDS: BUSPAR PO SCH ×2 (10:14→14:13)
[2018-12-12] MEDS: VITAMIN D PO SCH (10:15)
[2018-12-12] MEDS: COREG PO SCH (10:15)
[2018-12-12] MEDS: VITAMIN C PO SCH (10:15)
[2018-12-12] MEDS: THERA M PLUS PO SCH (10:15)
[2018-12-12] MEDS: ZOLOFT PO SCH (10:15)
[2018-12-12] MEDS: CORDARONE PO SCH (10:15)
[2018-12-12] MEDS: MESTINON PO SCH ×3 (10:15→16:34)
[2018-12-12] MEDS: INVANZ 1 GM/NS 1 GM/50 ML IVPB IV SCH (10:16)
[2018-12-12] MEDS: PATIENT'S OWN MED TOP SCH ×2 (10:23→16:34)
--- NOTE | 2018-12-12 10:44 | DISCHARGE SUMMARY ---
ADMISSION DATE: 12/04/2018 DISCHARGE DATE: 12/12/2018 ADMISSION DIAGNOSES: 1. Fall. 2. Right closed hip fracture. 3. Urinary tract infection. 4. Metatarsal bone fracture. 5. Ischemic cardiomyopathy. 6. History of atrial fibrillation. 7. Status post pacemaker/implantable cardiac defibrillator placement. 8. Hypothyroidism. 9. Myasthenia gravis. DISCHARGE DIAGNOSES: 1. Extended-spectrum B-lactamase positive Escherichia coli urinary tract infection. 2. Right-sided rib fracture. 3. Left metatarsal foot fracture. 4. History of ischemic cardiomyopathy. CONSULTATIONS: 1. PICC line placement. 2. [facility] consult. 3. Wound care. SURGERIES/PROCEDURES: None. HOSPITAL COURSE: Mr. Ish Vela is a 78-year-old male with a medical history of myasthenia gravis who is wheelchair bound, also a history of atrial fibrillation, ischemic cardiomyopathy, hypothyroidism, coronary artery disease. Presented to the emergency department with multiple complaints. He had fallen out of his wheelchair 3 days prior to presentation and hurt his left foot. Then he fell again the night before presentation and hit his right side. He ended up with right-sided rib fractures along with a left toe fracture. He has had worsened dizziness. He was found to have a UTI with ESBL positive E. coli. Wound care was consulted for the ulcer on his left foot. Physical therapy was consulted. He was given IV fluids and started on antibiotics. He required a boot and physical therapy for ambulation, so he was evaluated for rehab. Antibiotic coverage was Invanz 1 g IV q.24 hours because the E. coli UTI was ESBL positive. He stabilized out. Essentially needed rehab for physical deconditioning and requires Invanz for a total of 2 weeks. DISCHARGE VITAL SIGNS: Temperature 97.3 degrees, heart rate 73, respiratory rate 18, blood pressure 124/62, O2 saturation 94% on nasal cannula. LABORATORY DATA: From 12/09/2018, white blood cells 8000, hemoglobin 11, hematocrit 38, platelet count 169,000. Sodium 141, potassium 4.5, BUN 14, creatinine 0.8, glucose 87, calcium 8.9. Bilirubin 0.40, AST 24, ALT 26, albumin 3.2. MICROBIOLOGY: Urine culture on the was ESBL positive E. coli, resistant to Levaquin, tobramycin, and Bactrim. Then a repeat urine culture on the was negative for any growth. IMAGING: On the , foot x-ray, suspect nutrient canal base of fifth metatarsal; however, cannot exclude nondisplaced fracture of symptomatic. Ribs with chest x-ray, potential nondisplaced fracture in the right posterior tenth rib. Head and cervical CT, moderate cerebral atrophy. No evidence of acute intracranial disease. Degenerative disk and facet disease in the cervical spine without evidence of acute bony abnormality. EKG, AV paced, rate 72. DISCHARGE MEDICATIONS: 1. Amitriptyline 50 mg p.o. nightly. 2. Lipitor 20 mg p.o. nightly. 3. Aspirin 81 mg p.o. daily. 4. BuSpar 10 mg p.o. t.i.d. 5. Calcium carbonate 1 tablet p.o. daily. 6. Claritin 10 mg p.o. nightly. 7. Entresto one tablet p.o. daily. 8. Multivitamin 1 tablet p.o. daily. 9. Ferrous sulfate 65 mg p.o. daily. 10. Lunesta 3 mg p.o. every 6 to 8 hours p.r.n. 11. Mestinon 60 mg p.o. t.i.d. 12. Neurontin 300 mg p.o. t.i.d. 13. Potassium chloride 20 mEq p.o. daily. 14. Synthroid 125 mcg p.o. daily. 15. Testosterone topical. 16. Vitamin C 500 mg p.o. daily. 17. Vitamin D3 with 2000 units p.o. daily. 18. Zoloft 75 mg p.o. daily. 19. Amiodarone 200 mg p.o. twice daily. 20. Coreg 3.125 mg p.o. twice daily. 21. Invanz 1 g IV daily with a total of 2 weeks. I think there is 10 days left. 22. Lasix 40 mg p.o. daily. DISCHARGE DIET: Heart healthy diet with Ensure. ACTIVITY: Physical therapy. DISCHARGE INSTRUCTIONS: For condition changes, contact physician and/or return to the emergency department. Changes may include, but are not limited to shortness of breath, increased fatigue, excessive bleeding, unexplained weight loss or gain, unmanageable pain, signs or symptoms of infection. PHYSICIAN FOLLOWUP: Primary care provider. DISCHARGE DISPOSITION: [place]. Dictated by RADHA Enriquez for Gigi Ledbetter MD Addendum: Patient seen and examined by myself. Agree with RADHA note. It reflects my assessment and plan. Patient is being released in stable condition to rehab facility. Will be seen by PCP in a week. cc: RADHA Enriquez MD [facility]
[2018-12-12 10:48] LABS: INR 0.95; PROTIME 13.2 Seconds (11.0-16.0)
--- NOTE | 2018-12-12 11:16 | DISCHARGE SUMMARY ---
ADMISSION DATE: 12/04/2018 DISCHARGE DATE: ADDENDUM: ADMISSION DIAGNOSIS: Depression. DISCHARGE DIAGNOSIS: Depression. The patient has a history of chronic depression and anxiety. We will continue his home medications for that. Dictated by RADHA Enriquez for Gigi Ledbetter MD cc: RADHA Enriquez MD
[2018-12-12] MEDS: NORCO-10 PO PRN (11:30)
[2018-12-12] MEDS ORDERED: NS 250 ML ONE (14:22)
[2018-12-12 14:39] VITALS: BP 123/56
[2018-12-12] MEDS: ZOFRAN IV PRN (14:54)
--- NOTE | 2018-12-12 16:20 | Diag Imaging Result Doc PS360 ---
EXAM: CHEST-PORTABLE - 12/12/2018 HISTORY: PICC line placement TECHNIQUE: Portable chest COMPARISON: 12/04/2018 FINDINGS: There is been interval insertion of PICC from the right. The tip of the PICC is at or near the caval atrial junction. The patient is rotated towards the left, which limits detail at the left lower lung. Possibly mild bilateral perihilar infiltrates. There is mild infiltrate or atelectasis at the lateral right base. There is no substantial pleural effusion or pneumothorax identified. Heart size appears grossly stable. IMPRESSION: Tip of PICC at or near cavoatrial junction. Possible mild perihilar infiltrates. Mild infiltrate or atelectasis at lateral right base. Electronically signed by Clayton Naranjo 12/12/2018 4:18 PM
== END 2018-12-12 18:20 | DRG 690 ==
LOC: P.ED 12:44 → P.MEDSURG 12:45 → SUATTDRO 12:45
PROVIDERS: ATTEND Internal Medicine